=== PATIENT | female | born 1930 | race Hispanic/Latino ===

== ENCOUNTER 2017-03-16 07:36 | Inpatient (IN) | payer MEDICARE ==
[2017-03-16 08:11] LABS: ADD MANUAL DIFF? NO
[2017-03-16 08:23] LABS: BASO # 0.05 K/mm3 (0.0-2.0); BASO % 0.7 % (0.0-3.0); EOS # 0.2 (0.0-0.7); EOS % 2.5 % (1.5-5.0); GRAN # 5.23 (1.4-6.5); GRAN % 76.9 % (50.0-68.0); HEMATOCRIT 37.4 % (36.0-48.0); LYMPH # 0.8 (1.2-3.4); LYMPH % 11.8 % (22.0-35.0); MEAN CELL VOLUME 83.3 fL (80.0-105.0); MEAN CORPUSCULAR HEMOGLOBIN 26.7 pg (25.0-35.0); MEAN CORPUSCULAR HGB CONC 32.1 g/dl (31.0-37.0); MEAN PLATELET VOLUME 10.4 fl (7.0-11.0); MONO # 0.6 (0.1-0.6); MONO % 8.1 % (1.0-6.0); PLATELET COUNT 192 10^3/uL (120.0-450.0); WHITE BLOOD COUNT 6.8 10^3/ul (4.5-11.0)
[2017-03-16 08:27] LABS: INR 0.98 (0.93-1.08); PARTIAL THROMBOPLASTIN TIME 23.8 Seconds (23.7-30.8)
[2017-03-16 08:28] LABS: ALB/GLOB RATIO 1.2 (1.1-1.8); ALKALINE PHOSPHATASE 91 U/L (38-133); ALT/SGPT 41 U/L (7-56); AST/SGOT 29 U/L (15-39); BILIRUBIN,TOTAL 0.4 mg/dL (0.2-1.3); BLOOD UREA NITROGEN 16 mg/dL (7-21); CARBON DIOXIDE 24 mmol/L (21-33); CHLORIDE 107 mmol/L (98-107); GFR AFRICAN-AMERICAN > 60; GLUCOSE,RANDOM 213 mg/dL (70-110); LIPASE 156 U/L (23-300); POTASSIUM 4.3 mmol/L (3.6-5.0); SODIUM 138 mmol/L (132-148)
[2017-03-16 08:39] LABS: TROPONIN I 0.03 ng/mL
--- NOTE | 2017-03-16 09:06 | ED PDOC ---
Arrival/HPI - General Chief Complaint: Abdominal Pain Time Seen by Provider: 03/16/17 07:38 Historian: Patient - History of Present Illness Narrative History of Present Illness (Text): 03/16/17 07:40 A 86 year old female with a history that includes hypothyroidism is sent in to the emergency department by PMD for intermittent left shoulder pain, which has worsened within the past few days. She also complains of abdominal pain with associated diarrhea. She describes 4 episodes of non-bloody diarrhea last night with nausea. Patient denies any vomiting or any other symptoms at this time. PMD: Dr. Rivera Time/Duration: Other Symptom Onset: Gradual Symptom Course: Worsening Activities at Onset: Other (Walking ) Context: Home Past Medical History - Provider Review Nursing Documentation Reviewed: Yes - Infectious Disease Hx of Infectious Diseases: None - Endocrine/Metabolic Other/Comment: Diabetes with no medication - Psychiatric Hx Substance Use: No - Surgical History Hx Hysterectomy: Yes Hx Thyroidectomy: Yes Family/Social History - Physician Review Nursing Documentation Reviewed: Yes Family/Social History: Unknown Family HX Smoking Status: Never Smoked Hx Alcohol Use: No Hx Substance Use: No Allergies/Home Meds Allergies/Adverse Reactions: Allergies pcn Allergy (Uncoded 03/16/17 07:51) ITCHING Home Medications: Home Meds Medication Instructions Recorded Confirmed Simvastatin [Zocor] 20 mg PO DAILY 03/16/17 03/16/17 Review of Systems - Physician Review All systems were reviewed & negative as marked: Yes - Review of Systems Constitutional: Normal Respiratory: absent: SOB, Cough Gastrointestinal: Abdominal Pain, Diarrhea (non-bloody), Nausea. absent: Vomiting Physical Exam Vital Signs Reviewed: Yes Vital Signs Temp Pulse Resp BP Pulse Ox 03/16/17 10:54 85 16 130/74 88 L 03/16/17 09:40 80 16 124/72 98 03/16/17 08:01 97.8 F 75 16 138/88 94 L 03/16/17 07:41 97.8 F 77 18 138/88 98 Temperature: Afebrile Blood Pressure: Normal Pulse: Regular Respiratory Rate: Normal Appearance: Positive for: Well-Appearing, Non-Toxic, Comfortable Pain Distress: None Mental Status: Positive for: Alert and Oriented X 3 Finger Stick Blood Glucose: 241 - Systems Exam Head: Present: Atraumatic, Normocephalic Pupils: Present: PERRL Extroacular Muscles: Present: EOMI Conjunctiva: Present: Normal Mouth: Present: Moist Mucous Membranes Neck: Present: Normal Range of Motion Respiratory/Chest: Present: Clear to Auscultation, Good Air Exchange. No: Respiratory Distress, Accessory Muscle Use Cardiovascular: Present: Regular Rate and Rhythm, Normal S1, S2. No: Murmurs Abdomen: Present: Tenderness (mild non focal ) Upper Extremity: Present: Tenderness (left shoulder) Lower Extremity: Present: Normal Inspection. No: Edema Neurological: Present: GCS=15, CN II-XII Intact, Speech Normal Skin: Present: Warm, Dry, Normal Color. No: Rashes Psychiatric: Present: Alert, Oriented x 3, Normal Insight, Normal Concentration Medical Decision Making ED Course and Treatment: Impression: a 86 year old female complains of left shoulder pain and abdominal pain with non-bloody diarrhea. Differential Diagnosis included but are not limited to: Plan: -- Chest X-ray, EKG -- X-ray Left Shoulder -- Labs -- Toradol, Nitrostat, and Zofran -- Reassess and disposition Progress Notes: EKG: Ordered, reviewed, and independently interpreted the EKG. Rate : 75 BPM Rhythm : NSR Interpretation : Right Bundle Branch Block, which is old from 03/15/16 Chest X-ray Concrete Grinder Operator: Cherri Pompa MD IMPRESSION: No active pulmonary disease. COPD Left Shoulder X-Ray Concrete Grinder Operator : Cherri Ceballos MD IMPRESSION: No acute fracture or dislocation. CT Angiography Chest, Abdomen and Pelvis with and without intravenous contrast Concrete Grinder Operator : Brennen Conroy MD IMPRESSION: No evidence of aortic aneurysm or dissection 03/16/17 10:[address] Ruiz at bedside 03/16/17 10:[address] Rivera to observation for chest pain. - Lab Interpretations Lab Results: 03/16/17 08:00 03/16/17 08:00 Lab Results 03/16/17 08:00: Sodium 138, Potassium 4.3, Chloride 107, Carbon Dioxide 24, Anion Gap 11, BUN 16, Creatinine 0.7, Est GFR ( Amer) > 60, Est GFR (Non- Af Amer) > 60, Random Glucose 213 H, Calcium 9.0, Total Bilirubin 0.4, AST 29, ALT 41, Alkaline Phosphatase 91, Lactate Dehydrogenase 403, Total Creatine Kinase 71, Troponin I 0.03, Total Protein 6.0, Albumin 3.3, Globulin 2.7, Albumin/Globulin Ratio 1.2, Lipase 156 03/16/17 08:00: PT 10.6, INR 0.98, APTT 23.8 03/16/17 08:00: WBC 6.8 D, RBC 4.49, Hgb 12.0, Hct 37.4, MCV 83.3, MCH 26.7, MCHC 32.1, RDW 15.0 H, Plt Count 192, MPV 10.4, Gran % 76.9 H, Lymph % (Auto) 11.8 L, [place] % (Auto) 8.1 H, Eos % (Auto) 2.5, Baso % (Auto) 0.7, Gran # 5.23, Lymph # 0.8 L, [place] # 0.6, Eos # 0.2, Baso # 0.05 03/16/17 07:55: POC Glucose (mg/dL) 241 H - RAD Interpretation Radiology Orders: 03/16/17 07:44 CHEST ONE VIEW [RAD] Stat 03/16/17 07:45 SHOULDER LEFT [RAD] Stat 03/16/17 08:37 ANGIOGRAPHY DISECTION PROTOCOL [CT] Stat - EKG Interpretation Interpreted by ED Physician: Yes Type: 12 lead EKG - Medication Orders Current Medication Orders: Discontinued Medications Iohexol (Omnipaque 350 150 Ml) Confirm Administered Dose 150 ml .ROUTE .STK-MED ONE Stop: 03/16/17 08:44 Ketorolac Tromethamine (Toradol) 30 mg IVP STAT STA Stop: 03/16/17 07:45 Last Admin: 03/16/17 08:10 Dose: 30 mg Nitroglycerin (Nitrostat Sl Tab) 0.4 mg SL STAT STA Stop: 03/16/17 08:47 Last Admin: 03/16/17 09:39 Dose: Not Given Non-Admin Reason: Agitation Ondansetron HCl (Zofran Inj) 4 mg IVP STAT STA Stop: 03/16/17 07:45 Last Admin: 03/16/17 08:11 Dose: 4 mg - Scribe Statement The provider has reviewed the documentation as recorded by the [employer] training under [place] Shonna Provider Scribe Attestation: All medical record entries made by the Scribe were at my direction and personally dictated by me. I have reviewed the chart and agree that the record accurately reflects my personal performance of the history, physical exam, medical decision making, and the department course for this patient. I have also personally directed, reviewed, and agree with the discharge instructions and disposition. Disposition/Present on Arrival - Present on Arrival Any Indicators Present on Arrival: No History of DVT/PE: No History of Uncontrolled Diabetes: No Urinary Catheter: No History of Decub. Ulcer: No History Surgical Site Infection Following: None - Disposition Have Diagnosis and Disposition been Completed?: Yes Diagnosis: Chest pain, Shoulder pain, Diarrhea Disposition: HOSPITALIZED Disposition Time: 11:00 Condition: FAIR
--- NOTE | 2017-03-16 09:37 | RAD ---
PROCEDURE: CHEST RADIOGRAPH, 1 VIEW HISTORY: Abdominal pain COMPARISON: None available. FINDINGS: LUNGS: The lungs are hyperinflated and there is peribronchial thickening with chronic changes in both lungs. PLEURA: No pneumothorax or pleural fluid seen. CARDIOVASCULAR: The heart is normal in size. Atherosclerotic aortic arch calcifications are present. OSSEOUS STRUCTURES: No significant abnormalities. VISUALIZED UPPER ABDOMEN: Normal. OTHER FINDINGS: None. IMPRESSION: No active pulmonary disease. COPD.
--- NOTE | 2017-03-16 10:14 | RAD ---
PROCEDURE: Radiographs of the Left Shoulder HISTORY: Shoulder pain COMPARISON: No prior. FINDINGS: BONES: No acute displaced fracture or dislocation. There is diffuse bone demineralization. JOINTS: There is mild degenerative osteoarthrosis in the acromioclavicular and glenohumeral joints. SOFT TISSUES: Normal. OTHER FINDINGS: None. IMPRESSION: No acute fracture or dislocation.
--- NOTE | 2017-03-16 10:17 | CT ---
PROCEDURE: CT Angiography Chest, Abdomen and Pelvis with and without intravenous contrast HISTORY: cp radiating to back COMPARISON: None. TECHNIQUE: Contiguous axial images of the chest, abdomen and pelvis were obtained in the phase of aortic enhancement. A noncontrast enhanced CT of the chest was also obtained to evaluate for possible intramural thrombus. Coronal and sagittal reformats were generated. Radiation dose: Total exam DLP = mGy-cm. This CT exam was performed using one or more of the following dose reduction techniques: Automated exposure control, adjustment of the mA and/or kV according to patient size, and/or use of iterative reconstruction technique. Intravenous contrast dose: 100 cc of Omnipaque 300 FINDINGS: CT ANGIOGRAPHY OF THE CHEST WITH & WITHOUT CONTRAST: ABDOMINAL AORTA:: No aneurysm or dissection. AORTA (CHEST AND ABDOMEN): The thoracic and abdominal aorta are unremarkable, without aneurysm, dissection or rupture. No intramural thrombus identified in the thoracic aorta on the non-contrast ct of the chest. The celiac axis, superior mesenteric artery, inferior mesenteric artery and the renal arteries are widely patent. The pelvic arteries are unremarkable. LUNGS: Mild peripheral interstitial changes. MEDIASTINUM: Unremarkable. Normal caliber aorta and pulmonary arterial trunk. No aortic dissection. Normal size heart. LYMPH NODES: Unremarkable. PLEURA: Minimal bilateral pleural effusions. No pneumothorax. No pleural fluid. BONES: Unremarkable. OTHER FINDINGS: None. 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 No gross lesion or ductal dilatation. GALLBLADDER AND BILE DUCTS: Unremarkable. PANCREAS: Unremarkable. No gross lesion or ductal dilatation. SPLEEN: Unremarkable. ADRENALS: Unremarkable. No mass. KIDNEYS AND URETERS: Multiple left renal cysts.. No hydronephrosis. No solid mass. VASCULATURE: Unremarkable. No aortic aneurysm. STOMACH AND BOWEL: Unremarkable. No obstruction. No gross mural thickening. APPENDIX: Normal appendix. PERITONEUM: Unremarkable. No free fluid. No free air. LYMPH NODES: Unremarkable. No enlarged lymph nodes. BLADDER: Unremarkable. REPRODUCTIVE: Hysterectomy. BONES: No acute fracture. OTHER FINDINGS: None. IMPRESSION: No evidence of aortic aneurysm or dissection
--- NOTE | 2017-03-16 11:25 | CON ---
DATE: 03/16/2017 REASON FOR CONSULTATION: Abnormal CAT scan. REFERRING PHYSICIAN: Dr. Rivera. HISTORY OF PRESENT ILLNESS: The patient is an 86-year-old female with past medical history significant for thyroid disease, hyperlipidemia, chronic sinus problems, who presents to [facility] with main complaints of nausea and diarrhea for the past day. The patient also complains of abdominal pain for the past day. The patient denies vomiting. She denies fevers, chills or infectious exposure. The patient denies shortness of breath at rest or dyspnea on exertion. She does state to a chronic minimal occasional cough -- most likely from her chronic sinus problems. There is no history of significant sputum production. There is no history of chest pain, coughing up of blood or chest pain -- made worse with deep respirations. There is no history of temperatures, chills or infectious exposure. There is no history of night sweats, weight loss or appetite change prior to the above events. No history of leg or calf pains. No history of syncope or diaphoresis. No history of recent travel or trauma. REVIEW OF SYSTEMS: The patient does complain of intermittent left shoulder pain - for over 1 year. No acute urinary symptoms. No new neurologic complaints. Rest of review of systems is negative. ALLERGIES: No known allergies. SOCIAL HISTORY: Negative for tobacco, negative for alcohol. FAMILY HISTORY: No inheritable diseases. HOME MEDICATIONS: Include Zocor. PHYSICAL EXAMINATION: GENERAL: The patient appears comfortable at rest. She is not short of breath. VITAL SIGNS: Temperature is 97.8, pulse 80, respirations 16, blood pressure 124 /72. Oxygen saturation on room air is 98%. HEENT: Normocephalic, atraumatic. NECK: No JVD. CARDIOVASCULAR: Systolic ejection murmur at the lower left sternal border. No S3 gallop. LUNGS: Clear bilaterally. EXTREMITIES: No clubbing, cyanosis, or edema. Calves are nontender to palpation. GASTROINTESTINAL: Abdomen is soft. The abdomen is mildly tender to palpation. Bowel sounds are positive. SKIN: No acute rash. NEUROLOGIC: Limited at the present time. PERTINENT LABORATORY DATA: CAT scan of the chest was done as an angiogram protocol. There are very minimal peripheral interstitial changes noted. These appear chronic in nature. There are also very small bilateral pleural effusions. There is no acute consolidation, mass, or nodules seen. There is no lymphadenopathy. There is no aortic dissection. Complete metabolic profile : Glucose 213. Rest of the metabolic profile is within normal limits. CBC: White count 6.8, hemoglobin 12.0, hematocrit 37.4, platelets of 192. IMPRESSION: 1. Probable gastroenteritis. 2. Thyroid disease. 3. Chronic sinusitis. 4. Tiny pleural effusions. PLAN: The patient presents to [facility] with main complaints of nausea, diarrhea, and abdominal pain for 1 day. As above, the patient also complains of some left shoulder pain -- which has been present for over a year. Lastly, the patient does complain of an occasional chronic cough -- most likely from her chronic sinus problems. I did offer the patient nasal steroids this morning -- she refused. On physical exam, her lungs are clear. Oxygen saturation on room air is 98%. I did review the CAT scan of the chest--as above. There are minimal chronic-appearing changes noted. There is no acute consolidation, pulmonary mass, or nodule noted. There is no lymphadenopathy. Gastroenterology and cardiology evaluations are ordered. Additional pulmonary intervention will be based on the clinical status of the patient. I did discuss the above with Dr. Rivera at length. Thank you very much for this pulmonary consultation. Peng Kohli MD cc: [id number] TT: 03/16/2017 11:25:04 Confirmation # [id number] Dictation # [id number] sid [email or web address]
[2017-03-16 12:13] LABS: URINE BILIRUBIN NEGATIVE (NEGATIVE); URINE BLOOD MODERATE (NEGATIVE); URINE GLUCOSE (UA) 250 mg/dL (NEGATIVE); URINE KETONE 15 mg/dL (NEGATIVE); URINE LEUKOCYTE ESTERASE NEGATIVE Leu/uL (NEGATIVE); URINE PROTEIN TRACE mg/dL (<30 mg/dL); URINE UROBILINOGEN 0.2 E.U./dL (<1 E.U./dL)
[2017-03-16 12:15] LABS: URINE APPEARANCE SL CLOUDY (CLEAR); URINE COLOR YELLOW (YELLOW)
[2017-03-16 12:19] LABS: URINE WBC 0 - 2 /hpf (0-6)
[2017-03-16 12:20] LABS: URINE BACTERIA FEW (NEG)
--- NOTE | 2017-03-16 13:50 | CON ---
DATE: 03/16/2017 REQUESTING PHYSICIAN: Dr. Rivera. REASON FOR CONSULTATION: Chest and shoulder pain. HISTORY OF PRESENT ILLNESS: This is an 86-year-old woman with a history of diabetes who began feeling poorly yesterday. She has some abdominal discomfort. She developed diarrhea. She also became extremely nauseated but did not vomit. She was brought to the Emergency Room. She was complaining of upper back pain and shoulder discomfort which she describes as a sharp pain. Her pain persists at this time. Electrocardiogram was performed showing a chronic right bundle branch block pattern. No acute ST-T changes were seen. She denies any prior cardiac history. She does have a history of diabetes for the past 10-15 years but currently takes no medications. She is not hypertensive. She does have mild hyperlipidemia. She does not smoke. There is no family history of premature heart disease. PAST MEDICAL HISTORY: Notable for prior subtotal thyroidectomy as well as a hysterectomy. MEDICATIONS: Her only medications at home are simvastatin 20 mg daily. SOCIAL HISTORY: She does not smoke or drink. She is and lives with her . FAMILY HISTORY: Both parents are from age-related illness. ALLERGIES: REACTION TO PENICILLIN. REVIEW OF SYSTEMS: Ten point review of systems is notable mainly for the problems mentioned above as well as some joint pain. PHYSICAL EXAMINATION: GENERAL: She is a very elderly woman who appears somewhat uncomfortable because of her shoulder pain. She also complains of some persistent nausea. VITAL SIGNS: Her blood pressure is 130/74 with a pulse of 86 and sinus, respirations are 16. She is afebrile. HEENT: Normocephalic, atraumatic. NECK: Supple, no JVD noted. CHEST: Clear to auscultation and percussion. HEART: PMI displaced laterally with increased splitting of second sound. There is a systolic murmur in the left sternal border. ABDOMEN: Soft with normoactive bowel sounds. Bilateral lower quadrant tenderness present. EXTREMITIES: No clubbing, cyanosis or edema. SKIN: Warm and dry. PSYCHIATRIC: Normal mood and affect. NEUROLOGIC: Alert and oriented x 3. No gross motor or sensory deficits appreciable. DIAGNOSTIC DATA: Electrocardiogram reveals sinus rhythm with a right bundle branch block; no acute changes seen. Chest x-ray reveals normal cardiac silhouette with clear lung case. CT of the chest and abdomen shows no evidence of pulmonary embolus. No other significant abnormalities are seen. Shoulder x-ray is unremarkable except for mild osteoarthritis changes. White count 6.8, hemoglobin and hematocrit are 12.0 and 37.4 with a platelet count 192 ,000. PT, PTT normal. Potassium 4.3, BUN and creatinine are 16 and 0.7, glucose 213. Troponin 0.03 with a CK of 71. IMPRESSION: 1. Back and shoulder discomfort, doubt cardiac cause. Symptoms appear more likely due to referred abdominal pain or musculoskeletal cause. 2. Nausea, diarrhea. Workup in progress. 3. History of diabetes and hyperlipidemia. RECOMMENDATIONS: Serial enzymes will be obtained. A repeat electrocardiogram will be planned for the morning. An echocardiogram will be ordered as well. We will continue to follow along and make further recommendations as appropriate. Thank you for this consultation. Perez Casillas MD cc: [id number] TT: 03/16/2017 11:44:27 Confirmation # [id number] Dictation # [id number] aracely SALDIVAR
[2017-03-16 14:41] LABS: T3 UPTAKE 35.6 % (23.0-41.0); T4 10.8 ug/dL (5.5-11.0)
[2017-03-16 14:55] LABS: THYROID STIMULATING HORMONE 2.61 mIU/mL (0.46-4.68)
--- NOTE | 2017-03-16 15:11 | HP ---
This is an 86-year-old female, who this morning I was called to their home when the patient reported that she was having chest pain. She was sitting in a chair with dry heaves. She states that during the night, she was having loose diarrhea. She says that the pain was along the anterior left chest a edgar, left shoulder, under the left scapula into the neck area. She states that she has had this pain off and on at times and that she would also get this discomfort when she would walk for a while. Sh e denies any fever or chills. PAST MEDICAL HISTORY: Colitis, thyroid cancer, hypothyroid disease, non-insulin dependent diabetes, hyperlipidemia. SOCIAL HISTORY: She is a nonsmoker, nondrinker, nondrug user. ALLERGY HISTORY: PENICILLIN. HOME MEDICATIONS: As documented are simvastatin, Zocor. She is also on thyroid replacement therapy, but does not know the dosage. REVIEW OF SYSTEMS: Fourteen systems are reviewed. Pertinent findings are an 86-year-old female, as per the HPI, but looks frail and fatigued. PHYSICAL EXAMINATION: VITAL SIGNS: Temp is 97.8, the pulse is 77, blood pressure is 138/88, the respiratory rate is 18, th e oxygen saturation is 98% on room air. GENERAL: She is alert and oriented x 3. NECK: Supple. There is no JVD. HEART: Has an S1, S2 rhythm with a grade II/ systolic murmur. ABDOMEN: Soft with positive bowel sounds. LUNGS: Show diminished breath sounds at the bases. EXTREMITIES: Show no evidence of edema. LABORATORY DATA: WBC is 6.8, RBC 4.49, hemoglobin 12, hematocrit 37.4, platelet count 192. PT is 10 .6 with an INR of 0.98, PTT is 23.8. Chemistry shows blood sugar of 213. Electrolytes are normal. The BUN is 16, creatinine is 0.7. LFTs are normal. Her troponin is 0.03. X-ray of her shoulder showed no acute fracture. Chest x-ray is reported as showing no active pulmona ry disease, evidence of COPD. She had a CT angiogram, which showed hemangioma of the liver and some renal cysts. Her EKG is reported as showing a sinus rhythm with PVCs, right bundle branch block, lef t anterior fascicular block, T-wave abnormality. IMPRESSION: An 86-year-old female with: 1. Left anterior chest pain and shoulder and back pain. States that the pain at times is related to walking, described sometimes as a heaviness in the chest. a. Must rule out cardiac ischemic disease. b. Rule out pulmonary etiology. c. Rule out gastrointestinal etiology. 2. Episodic diarrhea. a. Must rule out exacerbation of colitis. b. Rule out underlying other pathology. c. Rule out viral etiology. 3. History of hypothyroid disease. Check her thyroid function. The patient will be seen by GI, pulmonary, and cardiology. Serial cardiac enzymes will be requested. The patient will be placed on PPI. An echocardiogram will be requested as well. Patricia Rivera MD cc: [id number] TT: 03/16/2017 15:11:05 en
[2017-03-16 15:20] VITALS: BMI 26.0
[2017-03-16 15:20] LABS: TROPONIN I 6.67 ng/mL
[2017-03-16] MEDS ORDERED: Pneumococcal 23-Valent Vaccine IM ONE (15:21)
--- NOTE | 2017-03-16 15:24 | CARD ---
APPROVED REPORT EKG Measurement Heart [id number] <Conclusion> Sinus rhythm with frequent premature Atrial complexes Right bundle branch block Left anterior fascicular block Bifascicular block T wave abnormality, consider lateral ischemia Abnormal ECG
--- NOTE | 2017-03-16 17:51 | CON ---
DATE: 03/16/2017 HISTORY OF PRESENT ILLNESS: The patient seen and examined at the bedside. This is an 86-year-old lady with history of hyperthyroidism, hyperlipidemia and diabetes managed with diet and some exercise, who presented with a 1-day history of nausea, vomiting and diarrhea of sudden onset with some shoulder pain and back pain. CAT scan of the abdomen with dissection protocol was done which was negative; however, second set of troponin here at [facility] revealed a highly elevated troponin at 6.6 to 7. The EKG did not show any specific ischemic changes; however, provisional diagnosis of NSTEMI with ongoing chest pain was made, ICU was consulted. No fever, no chills, no sweats, no constipation, no shortness of breath. Of note, the nausea was getting progressively worse over the period of 1 day. There were no aggravating or alleviating factors. The pain was also incremental. PAST MEDICAL HISTORY: Diabetes, hypercholesterolemia and hypothyroidism. ALLERGIES: PENICILLIN. SOCIAL HISTORY: The patient is an ex-smoker. She quit about 50 years ago; however, used to smoke 6-7 prior to quitting. No alcohol or illicit drug abuse. FAMILY HISTORY: Noncontributory. MEDICATIONS AT HOME: Zocor, Synthroid. REVIEW OF SYSTEMS: Revealed 12 organ system other than mentioned in history of present illness is negative. PHYSICAL EXAMINATION: VITAL SIGNS: Blood pressure 135/81, heart rate 92, respiratory rate 16, oxygen saturation 98% on room air, temperature 97.8. HEAD AND NECK: Atraumatic. LUNGS: A few wheezes bilaterally. HEART: Regular rate and rhythm. S1, S2 normal. ABDOMEN: Soft, nontender, nondistended. MUSCULOSKELETAL: No C/C/E. NEUROLOGIC: The patient moves all extremities spontaneously. SKIN: Moist. PSYCHIATRIC: The patient is alert and oriented x 3. LABORATORY DATA: WBC 6.8, hemoglobin 12, platelet count 192. Sodium 138, potassium 4.3, chloride 107, carbon dioxide 24, BUN 16, creatinine 0.7, glucose 213, AST 29, ALT 41. Troponin first set is 0.03 and the second set is 6.67. TSH 2.61 (normal), thyroxine 10.8 (normal), T3 uptake 35.6 (normal). Lipase normal. CAT scan angiography official report showed no evidence of aortic aneurysm or dissection. Chest x-ray showed severe emphysematous changes bilaterally, right more than left, some increased interstitial markings which appear to be rather reflective of chronic fibrosis. The CT chest part of the CT angio showed some bronchiectatic changes, some ground glass mosaicism (airtrapping versus pulmonary hypertension). ASSESSMENT AND PLAN: This is an 86-year-old lady with history of smoking, diabetes and hyperlipidemia who presented with atypical chest pain which nevertheless was going into left shoulder and back. The nausea and vomiting that the patient had most likely is reactive to myocardial changes related to non-ST elevated NV. The patient does have NSTEMI at the present time. I will proceed with dual antiplatelet therapy, statins and beta blockers. Reportedly, cardiology service saw the patient and did not find the need for therapeutic anticoagulation at present time. Timing of cardiac catheterization and PCI will be deferred to cardiology service. Would recommend to start nitroglycerin drip and admit patient to ICU for further management and monitoring. The patient likely has COPD and she is wheezing on physical exam. I will proceed with bronchodilators, inhaled corticosteroids and LAMA at the present time and reassess. private pulmonary service (Dr. Kohli) will also being following the patient. We will continue with DVT and GI prophylaxis. ccm time 40 min Rolando Estrella MD cc: [id number] TT: 03/16/2017 17:51:26 Confirmation # [id number] Dictation # [id number] aracely SALDIVAR
[2017-03-16] MEDS: Budesonide 0.5 mg/2 ml Inhal Susp UD IH SCH (18:20)
[2017-03-16] MEDS ORDERED: Nitroglycerin 50mg in D5W 50 MG/250 ML BOTTLE IV PRN (18:22)
[2017-03-16] MEDS ORDERED: Sodium Chloride 0.45% 1,000 ML IV SCH (18:30)
--- NOTE | 2017-03-16 19:33 | CP.PCM.PCO ---
Assessment and Plan - Assessment and Plan (Free Text) Assessment: On Sign out rounds at 7pm patient noted to be saturating in the mid 70's on nasal cannula with a good wave form. Will place the patient on Bipap overnight with the goal to keep sa02 greater than 92%. Also spoke with Dr. Casillas regarding patient's management of NSTEMI. Recommends continuing dual anti- platelet therapy and holding off on therapeutic anticoagulation at this time.
[2017-03-16] MEDS: Arformoterol 15 mcg/2 ml Inh Sol IH SCH (20:22)
[2017-03-16 20:38] LABS: ARTERIAL BLOOD GAS HCO3 20.9 mmol/L (21-28); ARTERIAL BLOOD GAS O2 CAPACITY 15.9 mL/dl (16-24); ARTERIAL BLOOD GAS O2 CONTENT 15.1 ML/dl (15-23); ARTERIAL BLOOD GAS PH 7.41 (7.35-7.45); ARTERIAL BLOOD HGB O2 SAT 92.4 % (95.0-98.0); CARBOXYHEMOGLOBIN 1.2 % (0.5-1.5); HHB 5.1 % (0-5); METHEMOGLOBIN 1.2 % (0.0-3.0)
[2017-03-16 21:05] LABS: TROPONIN I 47.5 ng/mL
--- NOTE | 2017-03-16 21:22 | CON ---
DATE: 03/16/2017 This patient was seen and evaluated earlier in the Emergency Room. Discussed with Dr. Rivera and dragan tran the ER physician. This 86-year-old patient with a past medical history of hypothyroidism, dyslipid emia, diabetes mellitus, presented with a history of nausea, vomiting and also left shoulder pain and back pain. Initially, the CT of the abdomen was negative. In view of the history of an episode of diarrhea and vomiting, GI consult was requested. Subsequently, the blood tests showed an increased t roponin level. The patient is now admitted to the ICU unit. No complaints of any abdominal pain as such. No further diarrhea. No dysuria. No fever. OTHER PAST MEDICAL HISTORY: As above, hypothyroidism, dyslipidemia. ALLERGIES: PENICILLIN. SOCIAL HISTORY: She is an ex-smoker, has quit about 50 years ago. No alcohol. FAMILY HISTORY: Noncontributory. REVIEW OF SYSTEMS: Positive as above. Other systems reviewed. PHYSICAL EXAMINATION: GENERAL: The patient is lying on the bed, not in acute distress. VITAL SIGNS: Temperature is 99.3, pulse is 78, blood pressure 107/70. HEENT: Atraumatic, anicteric. NECK: Supple. HEART: S1, S2 heard. LUNGS: Bilateral air entry present. ABDOMEN: Soft. No masses, no tenderness. EXTREMITIES: No cyanosis or clubbing. NEUROLOGIC: Alert, oriented. Moves all of the extremities. LABORATORY DATA: Hemoglobin , hematocrit 37.4, WBC 6.8, platelets 192. Chemistry showed LFTs normal. Troponin has elevated; it was initially 0.03, now is 6.67. IMPRESSION: This 86-year-old patient now admitted with: 1. Acute myocardial infarction, non-ST. 2. History of nausea and vomiting subsided. 3. Other comorbidities include dyslipidemia and hypothyroidism. PLAN: Symptomatic management since the patient does not have any episodes of diarrhea and vomiting, only one episode. We will continue to follow. The patient is being evaluated and followed by cardio logist for this acute VT, non-ST segment. We will continue to closely follow up her care and suggest further management based on the clinical course. Susan Massey MD cc: [id number] TT: 03/16/2017 21:21:29 Confirmation # [id number] Dictation # [id number] mn
[2017-03-17] MEDS ORDERED: Insulin Lispro (humaLOG) LOW Coverage SC SCH (06:00)
[2017-03-17] MEDS: Pantoprazole 40 mg EC Tab PO SCH (06:25)
[2017-03-17 06:56] LABS: HEMATOCRIT 38.2 % (36.0-48.0); MEAN CELL VOLUME 82.5 fL (80.0-105.0); MEAN CORPUSCULAR HEMOGLOBIN 26.8 pg (25.0-35.0); MEAN CORPUSCULAR HGB CONC 32.5 g/dl (31.0-37.0); MEAN PLATELET VOLUME 10.8 fl (7.0-11.0); PLATELET COUNT 277 10^3/uL (120.0-450.0); RED CELL DISTRIBUTION WIDTH 15.5 % (11.5-14.5); WHITE BLOOD COUNT 11.8 10^3/ul (4.5-11.0)
[2017-03-17 07:00] LABS: ADD MANUAL DIFF? YES
[2017-03-17 07:14] LABS: ALB/GLOB RATIO 1.1 (1.1-1.8); ALKALINE PHOSPHATASE 95 U/L (38-133); ALT/SGPT 72 U/L (7-56); AST/SGOT 328 U/L (15-39); BILIRUBIN,TOTAL 1.1 mg/dL (0.2-1.3); BLOOD UREA NITROGEN 20 mg/dL (7-21); CALCIUM 9.1 mg/dL (8.4-10.5); CARBON DIOXIDE 26 mmol/L (21-33); CHLORIDE 104 mmol/L (98-107); GFR AFRICAN-AMERICAN > 60; GLUCOSE,RANDOM 262 mg/dL (70-110); LIPASE 65 U/L (23-300); MAGNESIUM 1.9 mg/dL (1.7-2.2); PHOSPHOROUS 3.5 mg/dL (2.5-4.5); POTASSIUM 4.8 mmol/L (3.6-5.0); SODIUM 136 mmol/L (132-148)
[2017-03-17] MEDS: Budesonide 0.5 mg/2 ml Inhal Susp UD IH SCH ×2 (07:43→17:54)
[2017-03-17] MEDS ORDERED: Magnesium Sulfate 1 gm in D5W 1 GM/100 ML BAG IVPB ONE (07:43)
[2017-03-17] MEDS: Arformoterol 15 mcg/2 ml Inh Sol IH SCH ×2 (07:43→19:56)
--- NOTE | 2017-03-17 08:13 | CP.PCM.PN ---
Subjective - Date & Time of Evaluation Date of Evaluation: 03/17/17 Time of Evaluation: 07:00 - Subjective Subjective: Stable in CCU. Mild nausea this AM. No chest, abd. or shoulder pain. I spoke with Dr. Casillas and Dr. Rivera this AM. V/S noted. RSR/S. Tachy. PE: Lungs: clear Cor.: S1S2 Abd.: soft Ext.: noedema Neuro.: alert I/O 426/375 Labs noted. Trop 71 today ECG's c/w ALMI with chronic RBBB CXR noted. No CHF CTA noted: No aortic dissection Objective - Vital Signs/Intake and Output Vital Signs (last 24 hours): Temp Pulse Resp BP Pulse Ox 99.3 F 93 H 17 124/79 93 L 03/16/17 18:00 03/17/17 07:00 03/17/17 07:00 03/17/17 07:00 03/17/17 07:00 Intake and Output: 03/17/17 03/17/17 06:59 18:59 Intake Total 236 Output Total 200 Balance 36 - Medications Medications: Current Medications Arformoterol Tartrate (Brovana) 15 mcg IH [id number] [facility] Last Admin: 03/17/17 07:43 Dose: 15 mcg Aspirin (Ecotrin) 81 mg PO DAILY [facility] Atorvastatin Calcium (Lipitor) 80 mg PO DIN [facility] Last Admin: 03/16/17 18:19 Dose: 80 mg Budesonide (Pulmicort Respules) 0.5 mg IH Q12H [facility] Last Admin: 03/17/17 07:43 Dose: 0.5 mg Clopidogrel Bisulfate (Plavix) 75 mg PO DAILY [facility] Nitroglycerin/Dextrose (Nitroglycerin 50 Mg/250 Ml D5w) 50 mg in 250 mls @ 0.9 mls/hr IV .Q24H PRN; Protocol; 3 MCG/MIN PRN Reason: Pain, moderate (4-7) Last Titration: 03/16/17 18:51 Dose: 10 mcg/min, 3 mls/hr Magnesium Sulfate/Dextrose (Magnesium Sulfate 1 Gm/100 Ml D5w) 1 gm in 100 mls @ 100 mls/hr IVPB ONCE ONE Stop: 03/17/17 08:42 Heparin Sodium/Dextrose (Heparin 25,000 Units/250ml In D5w) 250 mls @ 12.8 mls/ hr IV .[id number] PRN; Protocol; 16 UNITS/KG/HR PRN Reason: ADJUST RATE PER PROTOCOL Insulin Human Lispro (Humalog Low) 0 units SC Q6 LUCINA PRN Reason: Protocol Metoprolol Tartrate (Lopressor) 25 mg PO BRKDIN [facility] Last Admin: 03/16/17 18:19 Dose: 25 mg Ondansetron HCl (Zofran Inj) 4 mg IVP Q6H PRN PRN Reason: Nausea/Vomiting Last Admin: 03/16/17 23:03 Dose: 4 mg Pantoprazole Sodium (Protonix Ec Tab) 40 mg PO 0600 [facility] Last Admin: 03/17/17 06:25 Dose: 40 mg Tiotropium [place] (Spiriva) 18 mcg IH DAILY [facility] - Labs Labs: 03/17/17 05:45 03/17/17 05:45 PT 10.6 Seconds (9.9-11.8) 03/16/17 08:00 INR 0.98 (0.93-1.08) 03/16/17 08:00 APTT 23.8 Seconds (23.7-30.8) 03/16/17 08:00 Assessment and Plan - Assessment and Plan (Free Text) Assessment: Abdominal and shoulder pain with nausea and diarrhea Acute ALMI RBBB Diabetes Subtotal thyroidectomy S /P hysterectomy Plan: ASA, Plavix, IV heparin, metoprolol, IV NTG Plan cardiac cath Fri. AM Check echo and today's ECG Monitor I/O, labs, stool for OB, sats, etc. Additional recs following cath.
[2017-03-17 08:59] LABS: ANISOCYTOSIS SLIGHT; BAND 4 % (0-2); NEUTROPHIL 87 % (50.0-70.0); PLATELET ESTIMATE NORMAL (NORMAL)
--- NOTE | 2017-03-17 09:16 | PN ---
DATE: 03/17/2017 The patient was seen and examined in the intensive care unit. Currently, she is on 5 liters nasal ca nnula and receiving nebulizer treatments with added budesonide. She is not in respiratory distress. VITAL SIGNS: Her temperature is 99, pulse 93, respirations 18, pulse oximetry is 93% on 5 liters per minute nasal cannula, blood pressure is 124/79. LABORATORY DATA: Reviewed during today's evaluation. Her arterial blood gas shows pH of 7.41, pCO2 of 33 and pO2 of 66, with oxygen saturation of 94. Her electrolytes are normal. Her alkaline phosph atase is markedly elevated. LDH is markedly elevated and so is cardiac troponin markedly elevated to 71. The last troponin before that was 47.5. WBCs are 11.8 and hemoglobin of 12.4. PHYSICAL EXAMINATION: HEAD, EARS, NOSE AND THROAT: Within normal limits. NECK: Supple with no jugular vein distention. CHEST: Symmetrical. HEART: S1, S2. No S3. II/ systolic ejection murmur. LUNGS: Diminished breath sounds at both lung bases with scattered rhonchi and no wheezing. GASTROINTESTINAL: Abdomen soft, nontender with no organomegaly. EXTREMITIES: 1+ pedal edema. SKIN: Clear with no skin rashes and no cyanosis. NEUROLOGIC: No focal deficits. ASSESSMENT: 1. Acute myocardial infarction. 2. Congestive heart failure. 3. Severe hypoxemia. 4. Normal levels of pCO2 and pH indicating no significant chronic pulmonary condition. PLAN: The patient was assessed in the intensive care unit and new chest x-ray shows some redistribut ion of blood flow with congestive changes right upper more than left upper lobe, doubt pneumonia, but this area should be re-x-rayed in 12-24 hours. Otherwise, patient should receive treatment for her congestive heart failure, being evaluated by cardiology for possible cardiac catheterization. Her ac luis myocardial infarction is quite significant with very high levels of troponin and prognosis is ext remely guarded. Doug Diaz MD cc: [id number] TT: 03/17/2017 09:16:28 Confirmation # [id number] Dictation # [id number] mn
[2017-03-17] MEDS: Heparin25000 units/250ml 1/2NS 25,000 UNITS/250 ML BAG IV PRN (09:17)
--- NOTE | 2017-03-17 09:44 | CP.CCUPN ---
<Giulia Davenport - Last Filed: 03/17/17 13:09> CCU Subjective - Physician Review Subjective (Free Text): 03/17/17 09:44 Less nsauseous. VSS. No CP, SOB, or other complaints. CCU Objective - Vital Signs / Intake & Output Vital Signs (Last 4 hours): Vital Signs Pulse Resp BP Pulse Ox 03/17/17 09:17 96 H 130/81 03/17/17 07:00 93 H 17 124/79 93 L 03/17/17 06:00 93 H 17 112/77 93 L Intake and Output (Last 8hrs): Intake & Output 03/16/17 03/17/17 03/17/17 22:59 06:59 14:59 Intake Total 190 236 Output Total 175 200 Balance 15 36 Weight 176 lb 5.917 oz Intake: IV 50 36 Right Forearm 36 Oral 140 200 Output: Urine 175 200 Urine, Voided 175 200 Stool 0 Other: Voiding Method Bedside Commode # Voids Urine, Voided 2 - Physical Exam Head: Positive for: Atraumatic, Normocephalic Pupils: Positive for: PERRL Extroacular Muscles: Positive for: EOMI Conjunctiva: Positive for: Normal Mouth: Positive for: Moist Mucous Membranes Neck: Positive for: Normal Range of Motion Respiratory/Chest: Positive for: Clear to Auscultation, Good Air Exchange. Negative for: Respiratory Distress, Accessory Muscle Use Cardiovascular: Positive for: Regular Rate and Rhythm, Normal S1, S2. Negative for: Murmurs Abdomen: Positive for: Tenderness (mild non focal ) Upper Extremity: Negative for: Tenderness Lower Extremity: Positive for: Normal Inspection. Negative for: Edema Neurological: Positive for: GCS=15, CN II-XII Intact, Speech Normal Skin: Positive for: Warm, Dry, Normal Color. Negative for: Rashes Psychiatric: Positive for: Alert, Oriented x 3, Normal Insight, Normal Concentration - Medications Active Medications: Active Medications Generic Name Dose Route Start Last Admin Trade Name Freq PRN Reason Stop Dose Admin Arformoterol Tartrate 15 mcg 03/16/17 20:00 03/17/17 07:43 Brovana IH 15 mcg [id number] LUCINA Administration Aspirin 81 mg 03/17/17 10:00 Ecotrin PO DAILY LUCINA Atorvastatin Calcium 80 mg 03/16/17 17:00 03/16/17 18:19 Lipitor PO 80 mg DIN LUCINA Administration Budesonide 0.5 mg 03/16/17 17:15 03/17/17 07:43 Pulmicort Respules IH 0.5 mg Q12H LUCINA Administration Clopidogrel Bisulfate 75 mg 03/17/17 10:00 Plavix PO DAILY [facility] Nitroglycerin/Dextrose 50 mg in 250 mls @ 0.9 mls/hr 03/16/17 18:22 03/16/17 18:51 Nitroglycerin 50 Mg/250 Ml D5w IV 10 mcg/min .Q24H PRN 3 mls/hr Pain, moderate (4-7) Titration Protocol 3 MCG/MIN Heparin Sodium/Sodium Chloride 25,000 units in 250 mls @ 12.8 mls/hr 03/17/17 07:59 03/17/17 09:17 Heparin 26251 Units/250ml 1/2 Normal Saline IV 16 units/kg/hr .[id number] PRN 12.8 mls/hr ADJUST RATE PER PROTOCOL Administration Protocol 16 UNITS/KG/HR Insulin Human Lispro 0 units 03/17/17 11:30 Humalog Low SC ACHS [facility] Protocol Metoprolol Tartrate 25 mg 03/16/17 17:00 03/17/17 09:17 Lopressor PO 25 mg BRKDIN LUCINA Administration Ondansetron HCl 4 mg 03/16/17 18:24 03/16/17 23:03 Zofran Inj IVP 4 mg Q6H PRN Administration Nausea/Vomiting Pantoprazole Sodium 40 mg 03/17/17 06:00 03/17/17 06:25 Protonix Ec Tab PO 40 mg 0600 [facility] Administration Tiotropium [place] 18 mcg 03/17/17 10:00 Spiriva IH DAILY [facility] - Patient Studies Lab Studies: Lab Studies 03/17/17 03/17/17 03/16/17 Range/Units 05:45 05:45 20:32 WBC 11.8 H D (4.5-11.0) 10^3/ul RBC 4.63 (3.5-6.1) 10^6/uL Hgb 12.4 (12.0-16.0) gm/dL Hct 38.2 (36.0-48.0) % MCV 82.5 (80.0-105.0) fL MCH 26.8 (25.0-35.0) pg MCHC 32.5 (31.0-37.0) g/dl RDW 15.5 H (11.5-14.5) % Plt Count 277 (120.0-450.0) 10^3/uL MPV 10.8 (7.0-11.0) fl Neutrophils % (Manual) 87 H (50.0-70.0) % Band Neutrophils % 4 H (0-2) % Lymphocytes % (Manual) 5 L (22.0-35.0) % Monocytes % (Manual) 4 (1.0-6.0) % Platelet Evaluation Normal (NORMAL) Anisocytosis (manual) Slight pCO2 33 L (35-45) mm/Hg pO2 66.0 L (80-100) mm/Hg HCO3 20.9 L (21-28) mmol/L ABG pH 7.41 (7.35-7.45) ABG Total CO2 21.9 L (22-28) mmol.L ABG O2 Saturation 94.8 L (95-98) % ABG O2 Content 15.1 (15-23) ML/dl ABG Base Excess -3.1 L (-2.0-3.0) mmol/L ABG Hemoglobin 11.6 L (11.7-17.4) g/dL ABG Carboxyhemoglobin 1.2 (0.5-1.5) % POC ABG HHb (Measured) 5.1 H (0-5) % ABG Methemoglobin 1.2 (0.0-3.0) % ABG O2 Capacity 15.9 L (16-24) mL/dl Hgb O2 Saturation 92.4 L (95.0-98.0) % FiO2 30.0 % Sodium 136 (132-148) mmol/L Potassium 4.8 (3.6-5.0) mmol/L Chloride 104 (98-107) mmol/L Carbon Dioxide 26 (21-33) mmol/L Anion Gap 11 (10-20) BUN 20 (7-21) mg/dL Creatinine 0.8 (0.5-1.4) mg/dL Est GFR ( Amer) > 60 Est GFR (Non-Af Amer) > 60 Random Glucose 262 H (70-110) mg/dL Calcium 9.1 (8.4-10.5) mg/dL Phosphorus 3.5 (2.5-4.5) mg/dL Magnesium 1.9 (1.7-2.2) mg/dL Total Bilirubin 1.1 (0.2-1.3) mg/dL AST 328 H (15-39) U/L ALT 72 H (7-56) U/L Alkaline Phosphatase 95 (38-133) U/L Lactate Dehydrogenase (333-699) U/L Total Creatine Kinase (35-230) U/L CK-MB (CK-2) (0.0-3.6) ng/mL CK-MB (CK-2) % (2.5-3.0) % Troponin I 71.60 H* D ng/mL Total Protein 6.0 (5.8-8.3) g/dL Albumin 3.2 (3.0-4.8) g/dL Globulin 2.8 gm/dL Albumin/Globulin Ratio 1.1 (1.1-1.8) Lipase 65 (23-300) U/L Thyroxine (T4) (5.5-11.0) ug/dL T3 Uptake (23.0-41.0) % TSH 3rd Generation (0.46-4.68) mIU/mL Urine Color (YELLOW) Urine Appearance (CLEAR) Urine pH (4.7-8.0) Ur Specific [place] (1.005-1.035) Urine Protein (<30 mg/dL) mg/dL Urine Glucose (UA) (NEGATIVE) mg/dL Urine Ketones (NEGATIVE) mg/dL Urine Blood (NEGATIVE) Urine Nitrate (NEGATIVE) Urine Bilirubin (NEGATIVE) Urine Urobilinogen (<1 E.U./dL) E.U./dL Ur Leukocyte Esterase (NEGATIVE) Michelle/uL Urine RBC (0-2) /hpf Urine WBC (0-6) /hpf Ur Epithelial Cells (0-5) /hpf Urine Bacteria (NEG) 03/16/17 03/16/17 03/16/17 Range/Units 20:05 14:25 14:11 WBC (4.5-11.0) 10^3/ul RBC (3.5-6.1) 10^6/uL Hgb (12.0-16.0) gm/dL Hct (36.0-48.0) % MCV (80.0-105.0) fL MCH (25.0-35.0) pg MCHC (31.0-37.0) g/dl RDW (11.5-14.5) % Plt Count (120.0-450.0) 10^3/uL MPV (7.0-11.0) fl Neutrophils % (Manual) (50.0-70.0) % Band Neutrophils % (0-2) % Lymphocytes % (Manual) (22.0-35.0) % Monocytes % (Manual) (1.0-6.0) % Platelet Evaluation (NORMAL) Anisocytosis (manual) pCO2 (35-45) mm/Hg pO2 (80-100) mm/Hg HCO3 (21-28) mmol/L ABG pH (7.35-7.45) ABG Total CO2 (22-28) mmol.L ABG O2 Saturation (95-98) % ABG O2 Content (15-23) ML/dl ABG Base Excess (-2.0-3.0) mmol/L ABG Hemoglobin (11.7-17.4) g/dL ABG Carboxyhemoglobin (0.5-1.5) % POC ABG HHb (Measured) (0-5) % ABG Methemoglobin (0.0-3.0) % ABG O2 Capacity (16-24) mL/dl Hgb O2 Saturation (95.0-98.0) % FiO2 % Sodium (132-148) mmol/L Potassium (3.6-5.0) mmol/L Chloride (98-107) mmol/L Carbon Dioxide (21-33) mmol/L Anion Gap (10-20) BUN (7-21) mg/dL Creatinine (0.5-1.4) mg/dL Est GFR ( Amer) Est GFR (Non-Af Amer) Random Glucose (70-110) mg/dL Calcium (8.4-10.5) mg/dL Phosphorus (2.5-4.5) mg/dL Magnesium (1.7-2.2) mg/dL Total Bilirubin (0.2-1.3) mg/dL AST (15-39) U/L ALT (7-56) U/L Alkaline Phosphatase (38-133) U/L Lactate Dehydrogenase 1043 H 620 (333-699) U/L Total Creatine Kinase 1383 H 496 H (35-230) U/L CK-MB (CK-2) 118.0 H 37.6 H (0.0-3.6) ng/mL CK-MB (CK-2) % 8.5 H 7.6 H (2.5-3.0) % Troponin I 47.50 H* D 6.67 H* D ng/mL Total Protein (5.8-8.3) g/dL Albumin (3.0-4.8) g/dL Globulin gm/dL Albumin/Globulin Ratio (1.1-1.8) Lipase (23-300) U/L Thyroxine (T4) 10.8 (5.5-11.0) ug/dL T3 Uptake 35.6 (23.0-41.0) % TSH 3rd Generation 2.61 (0.46-4.68) mIU/mL Urine Color (YELLOW) Urine Appearance (CLEAR) Urine pH (4.7-8.0) Ur Specific [place] (1.005-1.035) Urine Protein (<30 mg/dL) mg/dL Urine Glucose (UA) (NEGATIVE) mg/dL Urine Ketones (NEGATIVE) mg/dL Urine Blood (NEGATIVE) Urine Nitrate (NEGATIVE) Urine Bilirubin (NEGATIVE) Urine Urobilinogen (<1 E.U./dL) E.U./dL Ur Leukocyte Esterase (NEGATIVE) Michelle/uL Urine RBC (0-2) /hpf Urine WBC (0-6) /hpf Ur Epithelial Cells (0-5) /hpf Urine Bacteria (NEG) 03/16/17 Range/Units 11:45 WBC (4.5-11.0) 10^3/ul RBC (3.5-6.1) 10^6/uL Hgb (12.0-16.0) gm/dL Hct (36.0-48.0) % MCV (80.0-105.0) fL MCH (25.0-35.0) pg MCHC (31.0-37.0) g/dl RDW (11.5-14.5) % Plt Count (120.0-450.0) 10^3/uL MPV (7.0-11.0) fl Neutrophils % (Manual) (50.0-70.0) % Band Neutrophils % (0-2) % Lymphocytes % (Manual) (22.0-35.0) % Monocytes % (Manual) (1.0-6.0) % Platelet Evaluation (NORMAL) Anisocytosis (manual) pCO2 (35-45) mm/Hg pO2 (80-100) mm/Hg HCO3 (21-28) mmol/L ABG pH (7.35-7.45) ABG Total CO2 (22-28) mmol.L ABG O2 Saturation (95-98) % ABG O2 Content (15-23) ML/dl ABG Base Excess (-2.0-3.0) mmol/L ABG Hemoglobin (11.7-17.4) g/dL ABG Carboxyhemoglobin (0.5-1.5) % POC ABG HHb (Measured) (0-5) % ABG Methemoglobin (0.0-3.0) % ABG O2 Capacity (16-24) mL/dl Hgb O2 Saturation (95.0-98.0) % FiO2 % Sodium (132-148) mmol/L Potassium (3.6-5.0) mmol/L Chloride (98-107) mmol/L Carbon Dioxide (21-33) mmol/L Anion Gap (10-20) BUN (7-21) mg/dL Creatinine (0.5-1.4) mg/dL Est GFR ( Amer) Est GFR (Non-Af Amer) Random Glucose (70-110) mg/dL Calcium (8.4-10.5) mg/dL Phosphorus (2.5-4.5) mg/dL Magnesium (1.7-2.2) mg/dL Total Bilirubin (0.2-1.3) mg/dL AST (15-39) U/L ALT (7-56) U/L Alkaline Phosphatase (38-133) U/L Lactate Dehydrogenase (333-699) U/L Total Creatine Kinase (35-230) U/L CK-MB (CK-2) (0.0-3.6) ng/mL CK-MB (CK-2) % (2.5-3.0) % Troponin I ng/mL Total Protein (5.8-8.3) g/dL Albumin (3.0-4.8) g/dL Globulin gm/dL Albumin/Globulin Ratio (1.1-1.8) Lipase (23-300) U/L Thyroxine (T4) (5.5-11.0) ug/dL T3 Uptake (23.0-41.0) % TSH 3rd Generation (0.46-4.68) mIU/mL Urine Color Yellow (YELLOW) Urine Appearance Sl cloudy (CLEAR) Urine pH 6.0 (4.7-8.0) Ur Specific [place] 1.010 (1.005-1.035) Urine Protein Trace H (<30 mg/dL) mg/dL Urine Glucose (UA) 250 H (NEGATIVE) mg/dL Urine Ketones 15 H (NEGATIVE) mg/dL Urine Blood Moderate H (NEGATIVE) Urine Nitrate Negative (NEGATIVE) Urine Bilirubin Negative (NEGATIVE) Urine Urobilinogen 0.2 (<1 E.U./dL) E.U./dL Ur Leukocyte Esterase Negative (NEGATIVE) Michelle/uL Urine RBC 10 - 15 (0-2) /hpf Urine WBC 0 - 2 (0-6) /hpf Ur Epithelial Cells 3 - 4 (0-5) /hpf Urine Bacteria Few (NEG) Laboratory Results - last 24 hr 03/16/17 03/16/17 03/16/17 11:45 14:11 14:25 WBC RBC Hgb Hct MCV MCH MCHC RDW Plt Count MPV Neutrophils % (Manual) Band Neutrophils % Lymphocytes % (Manual) Monocytes % (Manual) Platelet Evaluation Anisocytosis (manual) pCO2 pO2 HCO3 ABG pH ABG Total CO2 ABG O2 Saturation ABG O2 Content ABG Base Excess ABG Hemoglobin ABG Carboxyhemoglobin POC ABG HHb (Measured) ABG Methemoglobin ABG O2 Capacity Hgb O2 Saturation FiO2 Sodium Potassium Chloride Carbon Dioxide Anion Gap BUN Creatinine Est GFR ( Amer) Est GFR (Non-Af Amer) Random Glucose Calcium Phosphorus Magnesium Total Bilirubin AST ALT Alkaline Phosphatase Lactate Dehydrogenase 620 Total Creatine Kinase 496 H CK-MB (CK-2) 37.6 H CK-MB (CK-2) % 7.6 H Troponin I 6.67 H* D Total Protein Albumin Globulin Albumin/Globulin Ratio Lipase Thyroxine (T4) 10.8 T3 Uptake 35.6 TSH 3rd Generation 2.61 Urine Color Yellow Urine Appearance Sl cloudy Urine pH 6.0 Ur Specific [place] 1.010 Urine Protein Trace H Urine Glucose (UA) 250 H Urine Ketones 15 H Urine Blood Moderate H Urine Nitrate Negative Urine Bilirubin Negative Urine Urobilinogen 0.2 Ur Leukocyte Esterase Negative Urine RBC 10 - 15 Urine WBC 0 - 2 Ur Epithelial Cells 3 - 4 Urine Bacteria Few 03/16/17 03/16/17 03/17/17 20:05 20:32 05:45 WBC RBC Hgb Hct MCV MCH MCHC RDW Plt Count MPV Neutrophils % (Manual) Band Neutrophils % Lymphocytes % (Manual) Monocytes % (Manual) Platelet Evaluation Anisocytosis (manual) pCO2 33 L pO2 66.0 L HCO3 20.9 L ABG pH 7.41 ABG Total CO2 21.9 L ABG O2 Saturation 94.8 L ABG O2 Content 15.1 ABG Base Excess -3.1 L ABG Hemoglobin 11.6 L ABG Carboxyhemoglobin 1.2 POC ABG HHb (Measured) 5.1 H ABG Methemoglobin 1.2 ABG O2 Capacity 15.9 L Hgb O2 Saturation 92.4 L FiO2 30.0 Sodium 136 Potassium 4.8 Chloride 104 Carbon Dioxide 26 Anion Gap 11 BUN 20 Creatinine 0.8 Est GFR ( Amer) > 60 Est GFR (Non-Af Amer) > 60 Random Glucose 262 H Calcium 9.1 Phosphorus 3.5 Magnesium 1.9 Total Bilirubin 1.1 AST 328 H ALT 72 H Alkaline Phosphatase 95 Lactate Dehydrogenase 1043 H Total Creatine Kinase 1383 H CK-MB (CK-2) 118.0 H CK-MB (CK-2) % 8.5 H Troponin I 47.50 H* D 71.60 H* D Total Protein 6.0 Albumin 3.2 Globulin 2.8 Albumin/Globulin Ratio 1.1 Lipase 65 Thyroxine (T4) T3 Uptake TSH 3rd Generation Urine Color Urine Appearance Urine pH Ur Specific [place] Urine Protein Urine Glucose (UA) Urine Ketones Urine Blood Urine Nitrate Urine Bilirubin Urine Urobilinogen Ur Leukocyte Esterase Urine RBC Urine WBC Ur Epithelial Cells Urine Bacteria 03/17/17 05:45 WBC 11.8 H D RBC 4.63 Hgb 12.4 Hct 38.2 MCV 82.5 MCH 26.8 MCHC 32.5 RDW 15.5 H Plt Count 277 MPV 10.8 Neutrophils % (Manual) 87 H Band Neutrophils % 4 H Lymphocytes % (Manual) 5 L Monocytes % (Manual) 4 Platelet Evaluation Normal Anisocytosis (manual) Slight pCO2 pO2 HCO3 ABG pH ABG Total CO2 ABG O2 Saturation ABG O2 Content ABG Base Excess ABG Hemoglobin ABG Carboxyhemoglobin POC ABG HHb (Measured) ABG Methemoglobin ABG O2 Capacity Hgb O2 Saturation FiO2 Sodium Potassium Chloride Carbon Dioxide Anion Gap BUN Creatinine Est GFR ( Amer) Est GFR (Non-Af Amer) Random Glucose Calcium Phosphorus Magnesium Total Bilirubin AST ALT Alkaline Phosphatase Lactate Dehydrogenase Total Creatine Kinase CK-MB (CK-2) CK-MB (CK-2) % Troponin I Total Protein Albumin Globulin Albumin/Globulin Ratio Lipase Thyroxine (T4) T3 Uptake TSH 3rd Generation Urine Color Urine Appearance Urine pH Ur Specific [place] Urine Protein Urine Glucose (UA) Urine Ketones Urine Blood Urine Nitrate Urine Bilirubin Urine Urobilinogen Ur Leukocyte Esterase Urine RBC Urine WBC Ur Epithelial Cells Urine Bacteria EKG/Cardiology Studies: Cardiology / EKG Studies 03/16/17 15:35 EKG [ELECTROCARDIOGRAM] Stat Comment: Reason For Exam: ABDOMINAL PAIN 03/16/17 17:30 EKG [ELECTROCARDIOGRAM] Routine Comment: Reason For Exam: NSTEMI 03/17/17 06:00 EKG [ELECTROCARDIOGRAM] Routine Comment: Reason For Exam: chest pain Fingerstick Blood Sugar Results: 241 Critical Care Progress Note - Nutrition Nutrition: Nutrition Category Date Time Status Heart Healthy Diet [DIET] Diets 03/17/17 Breakfast Ordered Assessment/Plan - Assessment and Plan (Free Text) Plan: 86 F with HTN/HLD, non-IDDM, COPD/past-smoker 1/[id number] years (quit 50 yr ago), Subtotal thyroidectomy for cancer, chronic colitis, admitted to ICU for NSTEMI. She has 1 episode of diarrhea in the setting of chronic colitis, transaminitis today, suspected 2/2 chronic condition vs vagal stimulation from ACS. Neuro No active issue Maintain normothermic Card Trops elevated to 6 -> 50 -> 71.6 TWI in anteriolateral leads Chronic RBBB No Pulm edema on CXR On heparin gtt, nitro gtt (slow flow) Dual antiplatetes, BB, high dose statin Pending Echo Cardiac cath tomorrow at 8:30am. Stop heparin gtt at 6am. NPO except meds after mid-night Pulm Wheezes and rhonchi on PE Brovana, Pulmicort, Spiriva O2 as needed Bipap PRN GI Transaminitis (AST 328. ALT 72). Continue observe for now HHD, Kosher Dietitian consult Hx of chronic colitis GI on board Continent. Repleted electrolytes with goal K4, Mg 2 Endo Glucosuria Pending A1c, TFT, lipids ISSS Goal BS 140-180 Heme Hb 12.4 ID No active issue WBC 6.8 --> 11.8 Prophylasix On heparin gtt Consult Pulm = Seun Card = Nicolastaurus GI = Shilpa s/r/d/w Dr. Alan Hoffmann - Date & Time Date: 03/17/17 Time: 09:44 <Shun QUICK,Bonny H - Last Filed: 03/17/17 14:29> CCU Objective - Vital Signs / Intake & Output Intake and Output (Last 8hrs): Intake & Output 03/16/17 03/17/17 03/17/17 22:59 06:59 14:59 Intake Total 190 236 50 Output Total 175 200 Balance 15 36 50 Weight 176 lb 5.917 oz 126 lb Intake: IV 50 36 50 Right Forearm 36 Oral 140 200 Output: Urine 175 200 Urine, Voided 175 200 Stool 0 Other: Voiding Method Bedside Commode Bedside Commode # Voids Urine, Voided 2 - Medications Active Medications: Active Medications Generic Name Dose Route Start Last Admin Trade Name Freq PRN Reason Stop Dose Admin Arformoterol Tartrate 15 mcg 03/16/17 20:00 03/17/17 07:43 Brovana IH 15 mcg [id number] LUCINA Administration Aspirin 81 mg 03/17/17 10:00 03/17/17 12:18 Ecotrin PO 81 mg DAILY LUCINA Administration Atorvastatin Calcium 80 mg 03/16/17 17:00 03/16/17 18:19 Lipitor PO 80 mg DIN LUCINA Administration Budesonide 0.5 mg 03/16/17 17:15 03/17/17 07:43 Pulmicort Respules IH 0.5 mg Q12H LUCINA Administration Clopidogrel Bisulfate 75 mg 03/17/17 10:00 03/17/17 12:18 Plavix PO 75 mg DAILY LUCINA Administration Nitroglycerin/Dextrose 50 mg in 250 mls @ 0.9 mls/hr 03/16/17 18:22 03/17/17 14:03 Nitroglycerin 50 Mg/250 Ml D5w IV 6.66 mcg/min .Q24H PRN 2 mls/hr Pain, moderate (4-7) Titration Protocol 3 MCG/MIN Heparin Sodium/Sodium Chloride 25,000 units in 250 mls @ 12.8 mls/hr 03/17/17 07:59 03/17/17 09:17 Heparin 59301 Units/250ml 1/2 Normal Saline IV 16 units/kg/hr .[id number] PRN 12.8 mls/hr ADJUST RATE PER PROTOCOL Administration Protocol 16 UNITS/KG/HR Insulin Human Lispro 0 units 03/17/17 11:30 03/17/17 12:17 Humalog Low SC 3 units ACHS LUCINA Administration Protocol Metoprolol Tartrate 25 mg 03/16/17 17:00 03/17/17 09:17 Lopressor PO 25 mg [id number] LUCINA Administration Ondansetron HCl 4 mg 03/16/17 18:24 03/16/17 23:03 Zofran Inj IVP 4 mg Q6H PRN Administration Nausea/Vomiting Pantoprazole Sodium 40 mg 03/17/17 06:00 03/17/17 06:25 Protonix Ec Tab PO 40 mg 0600 LUCINA Administration Tiotropium [place] 18 mcg 03/17/17 10:00 03/17/17 12:18 Spiriva IH 18 mcg DAILY LUCINA Administration - Patient Studies Lab Studies: Lab Studies 03/17/17 03/17/17 03/17/17 Range/Units 08:00 05:45 05:45 WBC 11.8 H D (4.5-11.0) 10^3/ul RBC 4.63 (3.5-6.1) 10^6/uL Hgb 12.4 (12.0-16.0) gm/dL Hct 38.2 (36.0-48.0) % MCV 82.5 (80.0-105.0) fL MCH 26.8 (25.0-35.0) pg MCHC 32.5 (31.0-37.0) g/dl RDW 15.5 H (11.5-14.5) % Plt Count 277 (120.0-450.0) 10^3/uL MPV 10.8 (7.0-11.0) fl Neutrophils % (Manual) 87 H (50.0-70.0) % Band Neutrophils % 4 H (0-2) % Lymphocytes % (Manual) 5 L (22.0-35.0) % Monocytes % (Manual) 4 (1.0-6.0) % Platelet Evaluation Normal (NORMAL) Anisocytosis (manual) Slight pCO2 (35-45) mm/Hg pO2 (80-100) mm/Hg HCO3 (21-28) mmol/L ABG pH (7.35-7.45) ABG Total CO2 (22-28) mmol.L ABG O2 Saturation (95-98) % ABG O2 Content (15-23) ML/dl ABG Base Excess (-2.0-3.0) mmol/L ABG Hemoglobin (11.7-17.4) g/dL ABG Carboxyhemoglobin (0.5-1.5) % POC ABG HHb (Measured) (0-5) % ABG Methemoglobin (0.0-3.0) % ABG O2 Capacity (16-24) mL/dl Hgb O2 Saturation (95.0-98.0) % FiO2 % Sodium 136 (132-148) mmol/L Potassium 4.8 (3.6-5.0) mmol/L Chloride 104 (98-107) mmol/L Carbon Dioxide 26 (21-33) mmol/L Anion Gap 11 (10-20) BUN 20 (7-21) mg/dL Creatinine 0.8 (0.5-1.4) mg/dL Est GFR ( Amer) > 60 Est GFR (Non-Af Amer) > 60 Random Glucose 262 H (70-110) mg/dL Calcium 9.1 (8.4-10.5) mg/dL Phosphorus 3.5 (2.5-4.5) mg/dL Magnesium 1.9 (1.7-2.2) mg/dL Total Bilirubin 1.1 (0.2-1.3) mg/dL AST 328 H (15-39) U/L ALT 72 H (7-56) U/L Alkaline Phosphatase 95 (38-133) U/L Lactate Dehydrogenase (333-699) U/L Total Creatine Kinase (35-230) U/L CK-MB (CK-2) (0.0-3.6) ng/mL CK-MB (CK-2) % (2.5-3.0) % Troponin I 71.60 H* D ng/mL Total Protein 6.0 (5.8-8.3) g/dL Albumin 3.2 (3.0-4.8) g/dL Globulin 2.8 gm/dL Albumin/Globulin Ratio 1.1 (1.1-1.8) Lipase 65 (23-300) U/L Thyroxine (T4) 8.6 (5.5-11.0) ug/dL T3 Uptake 35.6 (23.0-41.0) % TSH 3rd Generation 0.71 (0.46-4.68) mIU/mL 03/16/17 03/16/17 03/16/17 Range/Units 20:32 20:05 14:25 WBC (4.5-11.0) 10^3/ul RBC (3.5-6.1) 10^6/uL Hgb (12.0-16.0) gm/dL Hct (36.0-48.0) % MCV (80.0-105.0) fL MCH (25.0-35.0) pg MCHC (31.0-37.0) g/dl RDW (11.5-14.5) % Plt Count (120.0-450.0) 10^3/uL MPV (7.0-11.0) fl Neutrophils % (Manual) (50.0-70.0) % Band Neutrophils % (0-2) % Lymphocytes % (Manual) (22.0-35.0) % Monocytes % (Manual) (1.0-6.0) % Platelet Evaluation (NORMAL) Anisocytosis (manual) pCO2 33 L (35-45) mm/Hg pO2 66.0 L (80-100) mm/Hg HCO3 20.9 L (21-28) mmol/L ABG pH 7.41 (7.35-7.45) ABG Total CO2 21.9 L (22-28) mmol.L ABG O2 Saturation 94.8 L (95-98) % ABG O2 Content 15.1 (15-23) ML/dl ABG Base Excess -3.1 L (-2.0-3.0) mmol/L ABG Hemoglobin 11.6 L (11.7-17.4) g/dL ABG Carboxyhemoglobin 1.2 (0.5-1.5) % POC ABG HHb (Measured) 5.1 H (0-5) % ABG Methemoglobin 1.2 (0.0-3.0) % ABG O2 Capacity 15.9 L (16-24) mL/dl Hgb O2 Saturation 92.4 L (95.0-98.0) % FiO2 30.0 % Sodium (132-148) mmol/L Potassium (3.6-5.0) mmol/L Chloride (98-107) mmol/L Carbon Dioxide (21-33) mmol/L Anion Gap (10-20) BUN (7-21) mg/dL Creatinine (0.5-1.4) mg/dL Est GFR ( Amer) Est GFR (Non-Af Amer) Random Glucose (70-110) mg/dL Calcium (8.4-10.5) mg/dL Phosphorus (2.5-4.5) mg/dL Magnesium (1.7-2.2) mg/dL Total Bilirubin (0.2-1.3) mg/dL AST (15-39) U/L ALT (7-56) U/L Alkaline Phosphatase (38-133) U/L Lactate Dehydrogenase 1043 H 620 (333-699) U/L Total Creatine Kinase 1383 H 496 H (35-230) U/L CK-MB (CK-2) 118.0 H 37.6 H (0.0-3.6) ng/mL CK-MB (CK-2) % 8.5 H 7.6 H (2.5-3.0) % Troponin I 47.50 H* D 6.67 H* D ng/mL Total Protein (5.8-8.3) g/dL Albumin (3.0-4.8) g/dL Globulin gm/dL Albumin/Globulin Ratio (1.1-1.8) Lipase (23-300) U/L Thyroxine (T4) (5.5-11.0) ug/dL T3 Uptake (23.0-41.0) % TSH 3rd Generation (0.46-4.68) mIU/mL 03/16/17 Range/Units 14:11 WBC (4.5-11.0) 10^3/ul RBC (3.5-6.1) 10^6/uL Hgb (12.0-16.0) gm/dL Hct (36.0-48.0) % MCV (80.0-105.0) fL MCH (25.0-35.0) pg MCHC (31.0-37.0) g/dl RDW (11.5-14.5) % Plt Count (120.0-450.0) 10^3/uL MPV (7.0-11.0) fl Neutrophils % (Manual) (50.0-70.0) % Band Neutrophils % (0-2) % Lymphocytes % (Manual) (22.0-35.0) % Monocytes % (Manual) (1.0-6.0) % Platelet Evaluation (NORMAL) Anisocytosis (manual) pCO2 (35-45) mm/Hg pO2 (80-100) mm/Hg HCO3 (21-28) mmol/L ABG pH (7.35-7.45) ABG Total CO2 (22-28) mmol.L ABG O2 Saturation (95-98) % ABG O2 Content (15-23) ML/dl ABG Base Excess (-2.0-3.0) mmol/L ABG Hemoglobin (11.7-17.4) g/dL ABG Carboxyhemoglobin (0.5-1.5) % POC ABG HHb (Measured) (0-5) % ABG Methemoglobin (0.0-3.0) % ABG O2 Capacity (16-24) mL/dl Hgb O2 Saturation (95.0-98.0) % FiO2 % Sodium (132-148) mmol/L Potassium (3.6-5.0) mmol/L Chloride (98-107) mmol/L Carbon Dioxide (21-33) mmol/L Anion Gap (10-20) BUN (7-21) mg/dL Creatinine (0.5-1.4) mg/dL Est GFR ( Amer) Est GFR (Non-Af Amer) Random Glucose (70-110) mg/dL Calcium (8.4-10.5) mg/dL Phosphorus (2.5-4.5) mg/dL Magnesium (1.7-2.2) mg/dL Total Bilirubin (0.2-1.3) mg/dL AST (15-39) U/L ALT (7-56) U/L Alkaline Phosphatase (38-133) U/L Lactate Dehydrogenase (333-699) U/L Total Creatine Kinase (35-230) U/L CK-MB (CK-2) (0.0-3.6) ng/mL CK-MB (CK-2) % (2.5-3.0) % Troponin I ng/mL Total Protein (5.8-8.3) g/dL Albumin (3.0-4.8) g/dL Globulin gm/dL Albumin/Globulin Ratio (1.1-1.8) Lipase (23-300) U/L Thyroxine (T4) 10.8 (5.5-11.0) ug/dL T3 Uptake 35.6 (23.0-41.0) % TSH 3rd Generation 2.61 (0.46-4.68) mIU/mL Laboratory Results - last 24 hr 03/16/17 03/16/17 03/16/17 14:11 14:25 20:05 WBC RBC Hgb Hct MCV MCH MCHC RDW Plt Count MPV Neutrophils % (Manual) Band Neutrophils % Lymphocytes % (Manual) Monocytes % (Manual) Platelet Evaluation Anisocytosis (manual) pCO2 pO2 HCO3 ABG pH ABG Total CO2 ABG O2 Saturation ABG O2 Content ABG Base Excess ABG Hemoglobin ABG Carboxyhemoglobin POC ABG HHb (Measured) ABG Methemoglobin ABG O2 Capacity Hgb O2 Saturation FiO2 Sodium Potassium Chloride Carbon Dioxide Anion Gap BUN Creatinine Est GFR ( Amer) Est GFR (Non-Af Amer) Random Glucose Calcium Phosphorus Magnesium Total Bilirubin AST ALT Alkaline Phosphatase Lactate Dehydrogenase 620 1043 H Total Creatine Kinase 496 H 1383 H CK-MB (CK-2) 37.6 H 118.0 H CK-MB (CK-2) % 7.6 H 8.5 H Troponin I 6.67 H* D 47.50 H* D Total Protein Albumin Globulin Albumin/Globulin Ratio Lipase Thyroxine (T4) 10.8 T3 Uptake 35.6 TSH 3rd Generation 2.61 03/16/17 03/17/17 03/17/17 20:32 05:45 05:45 WBC 11.8 H D RBC 4.63 Hgb 12.4 Hct 38.2 MCV 82.5 MCH 26.8 MCHC 32.5 RDW 15.5 H Plt Count 277 MPV 10.8 Neutrophils % (Manual) 87 H Band Neutrophils % 4 H Lymphocytes % (Manual) 5 L Monocytes % (Manual) 4 Platelet Evaluation Normal Anisocytosis (manual) Slight pCO2 33 L pO2 66.0 L HCO3 20.9 L ABG pH 7.41 ABG Total CO2 21.9 L ABG O2 Saturation 94.8 L ABG O2 Content 15.1 ABG Base Excess -3.1 L ABG Hemoglobin 11.6 L ABG Carboxyhemoglobin 1.2 POC ABG HHb (Measured) 5.1 H ABG Methemoglobin 1.2 ABG O2 Capacity 15.9 L Hgb O2 Saturation 92.4 L FiO2 30.0 Sodium 136 Potassium 4.8 Chloride 104 Carbon Dioxide 26 Anion Gap 11 BUN 20 Creatinine 0.8 Est GFR ( Amer) > 60 Est GFR (Non-Af Amer) > 60 Random Glucose 262 H Calcium 9.1 Phosphorus 3.5 Magnesium 1.9 Total Bilirubin 1.1 AST 328 H ALT 72 H Alkaline Phosphatase 95 Lactate Dehydrogenase Total Creatine Kinase CK-MB (CK-2) CK-MB (CK-2) % Troponin I 71.60 H* D Total Protein 6.0 Albumin 3.2 Globulin 2.8 Albumin/Globulin Ratio 1.1 Lipase 65 Thyroxine (T4) T3 Uptake TSH 3rd Generation 03/17/17 08:00 WBC RBC Hgb Hct MCV MCH MCHC RDW Plt Count MPV Neutrophils % (Manual) Band Neutrophils % Lymphocytes % (Manual) Monocytes % (Manual) Platelet Evaluation Anisocytosis (manual) pCO2 pO2 HCO3 ABG pH ABG Total CO2 ABG O2 Saturation ABG O2 Content ABG Base Excess ABG Hemoglobin ABG Carboxyhemoglobin POC ABG HHb (Measured) ABG Methemoglobin ABG O2 Capacity Hgb O2 Saturation FiO2 Sodium Potassium Chloride Carbon Dioxide Anion Gap BUN Creatinine Est GFR ( Amer) Est GFR (Non-Af Amer) Random Glucose Calcium Phosphorus Magnesium Total Bilirubin AST ALT Alkaline Phosphatase Lactate Dehydrogenase Total Creatine Kinase CK-MB (CK-2) CK-MB (CK-2) % Troponin I Total Protein Albumin Globulin Albumin/Globulin Ratio Lipase Thyroxine (T4) 8.6 T3 Uptake 35.6 TSH 3rd Generation 0.71 EKG/Cardiology Studies: Cardiology / EKG Studies 03/16/17 15:35 EKG [ELECTROCARDIOGRAM] Stat Comment: Reason For Exam: ABDOMINAL PAIN 03/16/17 17:30 EKG [ELECTROCARDIOGRAM] Routine Comment: Reason For Exam: NSTEMI 03/17/17 06:00 EKG [ELECTROCARDIOGRAM] Routine Comment: Reason For Exam: chest pain Critical Care Progress Note - Nutrition Nutrition: Nutrition Category Date Time Status Heart Healthy Diet [DIET] Diets 03/17/17 Breakfast Ordered Attending/Attestation - Attestation I have personally seen and examined this patient.: Yes I have fully participated in the care of the patient.: Yes I have reviewed all pertinent clinical information: Yes Notes (Text): 03/17/17 14:27 86 y/o F w/ NSTEMI ACS on Nitro-G drip , titrate to comfort On Heparin drip, asprin, plavix , statin( monitor LFT) and Beta blockers given. Plan for Cardiac cath on Tuesday per Cardiology group. No signs of clinical worsening. No Cardiogenic shock. PPI DVT P on Heparin drip. cc time 45 min
[2017-03-17 09:52] LABS: T3 UPTAKE 35.6 % (23.0-41.0); T4 8.6 ug/dL (5.5-11.0)
[2017-03-17 10:05] LABS: THYROID STIMULATING HORMONE 0.71 mIU/mL (0.46-4.68)
--- NOTE | 2017-03-17 10:21 | RAD ---
HISTORY: Shortness of breath COMPARISON: 03/16/2017. FINDINGS: LUNGS: There is interval development of right upper lobe airspace disease. The lungs are hyperinflated and there is peribronchial thickening with chronic changes in both lungs. . PLEURA: No significant pleural effusion identified, no pneumothorax apparent. CARDIOVASCULAR: Normal. OSSEOUS STRUCTURES: No significant abnormalities. VISUALIZED UPPER ABDOMEN: Normal. OTHER FINDINGS: None. IMPRESSION: Question of developing right upper lobe pneumonia. Follow-up after medical management is recommended to ensure complete resolution. COPD.
[2017-03-17] MEDS: Insulin Lispro (humaLOG) LOW Coverage SC SCH ×3 (12:17→22:05)
[2017-03-17] MEDS: Tiotropium 18 mcg Cap For Inhalation IH SCH (12:18)
[2017-03-17] MEDS ORDERED: Azithromycin 500MG/NS 250ml 500 MG/250 ML BAG IVPB STA (14:50)
--- NOTE | 2017-03-17 16:19 | PN ---
DATE: 03/17/2017 HISTORY OF PRESENT ILLNESS: The patient was seen and examined earlier today in CCU. The patient den ies any episodes of diarrhea, nausea or vomiting. No complaints of any shortness of breath or chest pain at this time. VITAL SIGNS: Blood pressure is 130/81, pulse is 96, respirations 18, 97% O2 saturation. LABORATORY DATA: Today, WBC is 11.8, H and H is 12.4 and 38.2, platelet is 277. Sodium 136, K 4.8, BUN is 20, creatinine is 0.5. Total bilirubin is 1.1, AST is 328, ALT 72, alkaline phosphatase is 95 . The patient's troponin this morning is 71.6. there is an increase in the troponin. The patient moya d a chest x-ray this morning and it shows a question of developing right upper lobe pneumonia. No pl eural effusion, no pneumothorax. PHYSICAL EXAMINATION: HEENT: Sclerae anicteric. NECK: Supple. CARDIAC: S1, S2. LUNGS: Clear breath sounds, no rales or wheeze. ABDOMEN: With bowel sounds, soft, nontender, no rebound or guarding. EXTREMITIES: No edema. NEUROLOGIC: Awake, alert, and oriented. ASSESSMENT: This is an 86-year-old female who came with abdominal pain, shoulder pain, and complaint s of nausea and diarrhea. The patient was found to have non-ST segment myocardial infarction. She d id have one episode of diarrhea with history of chronic colitis. The patient is noted to have elevat ed transaminitis. It may be secondary to hepatic congestion. Other comorbidities are hypothyroidism and dyslipidemia. PLAN: The patient is to continue diet as tolerated. She was able to tolerate some fluids this morni ng. Continue GI prophylaxis. She is on Protonix. The patient is now on nitro-drip, on heparin drip and is going to start on Plavix. She has also been placed on azithromycin. Monitor LFTs as per car diology and ICU team. Plan is patient for cardiac catheterization tomorrow. The patient was seen and case discussed with Dr. Massey. Rosa Isela MEYER cc: [id number] TT: 03/17/2017 16:18:47 Confirmation # [id number] Dictation # [id number] ln
--- NOTE | 2017-03-17 18:23 | PN ---
DATE: 03/17/2017 SUBJECTIVE: The patient is resting in bed this morning. Nursing staff states that she had a relativ yue comfortable night. The nausea seemed to improve after she was started on IV Tridil. She has sapphire erated the current diet. She is alert and oriented x 3. PHYSICAL EXAMINATION: VITAL SIGNS: Her blood pressure is 114/68, oxygen sat is 97%, respiratory rate is 18. NECK: Supple. LUNGS: Show some rhonchi. HEART: An S1, S2 rhythm. ABDOMEN: Soft with positive bowel sounds. EXTREMITIES: Show no evidence of edema. NEUROLOGIC: She is alert and oriented x 3. LABORATORY DATA: Shows a WBC of 11.8, RBC 4.63, hemoglobin 12.4, hematocrit 38.2, platelet count 277 . Her PTT is 75.3. She is on heparin. Chemistry shows normal electrolytes, the BUN is 20, creatini ne is 0.8, blood sugar is 262. Her AST is 328, the ALT is 72. The troponin is now 71.6. MEDICATIONS: She is on 81 mg Ecotrin, Brovana respiratory treatments for her COPD. She is on IV hep jimi for her [place]. She is on a Humalog sliding scale for her diabetes, Lipitor 80 mg daily for cholest sharron, Lopressor 25 mg twice a day. She is on a Tridil drip. She has been placed on Plavix 75 mg nan ly, Protonix 40 mg daily. She is on Pulmicort 0.5, Spiriva 18 mcg daily, Synthroid 125 mcg daily, an d Zofran 4 mg daily. The TSH level is 0.71, T4 is 8.6, and T3 is 35.6. Lipase is 65. ASSESSMENT: 1. Acute non-ST myocardial infarction. 2. Chronic obstructive pulmonary disease. 3. [id number] diabetes. 4. Hypothyroid disease. PLAN: At this particular point in time, based upon the interpretation of the chest x-ray, the patient will be followed by pulmonary and the certified surgical first assistant. She is scheduled for cardiac catheterization in the [facility]. Will continue current level of care. Follow the patient's labs closely. Patricia Rivera MD cc: [id number] TT: 03/17/2017 18:22:26 Confirmation # [id number] Dictation # [id number] dn
--- NOTE | 2017-03-17 23:49 | CARD ---
APPROVED REPORT EKG Measurement Heart [id number] <Conclusion> Sinus rhythm with premature atrial complexes Right bundle branch block Left anterior fascicular block Bifascicular block Cannot rule out Inferior infarct (masked by fascicular block?), age undetermined Anterolateral infarct, age undetermined Abnormal ECG
--- NOTE | 2017-03-17 23:55 | PN ---
DATE: 03/17/2017 ADDENDUM: This is an addendum to the GI progress report dictated by Rosa Isela Fields APN. SUBJECTIVE: The patient comfortable, tolerating liquid diet. No complaints of any abdominal pain. This is an addendum to the GI progress report dictated by Rosa Isela Fields APN. IMPRESSION: This 86-year-old patient is admitted with acute myocardial infarction with increasing tr oponin levels. Continue the clinical cardiac followup. Episode of diarrhea, nausea and vomiting is improved. Will slowly advance the diet. Thank you very much for allowing us to participate in the care of the patient. Susan Massey MD cc: [phone] TT: 03/17/2017 23:55:12 Confirmation # [id number] Dictation # [id number] mn
--- NOTE | 2017-03-18 00:01 | CARD ---
APPROVED REPORT EKG Measurement Heart [id number] [place] 154P75 [id number] <Conclusion> Sinus rhythm with fusion complexes Right bundle branch block Left anterior fascicular block Bifascicular block Cannot rule out Inferior infarct (masked by fascicular block?), age undetermined Anterolateral infarct, age undetermined Abnormal ECG
--- NOTE | 2017-03-18 00:03 | CARD ---
APPROVED REPORT EKG Measurement Heart [id number] <Conclusion> Sinus rhythm with premature atrial complexes Right bundle branch block Left anterior fascicular block Bifascicular block Anterolateral infarct, age undetermined Consider old inferior infarct Abnormal ECG
[2017-03-18] MEDS: Pantoprazole 40 mg EC Tab PO SCH (05:42)
[2017-03-18] MEDS ORDERED: Levothyroxine 125 MCG TAB PO SCH (06:00)
[2017-03-18 06:45] LABS: ADD MANUAL DIFF? NO
[2017-03-18 07:07] LABS: GRAN # 6.81 (1.4-6.5); GRAN % 82.6 % (50.0-68.0); HEMATOCRIT 40.6 % (36.0-48.0); LYMPH # 0.2 (1.2-3.4); LYMPH % 2.7 % (22.0-35.0); MEAN CELL VOLUME 81.4 fL (80.0-105.0); MEAN CORPUSCULAR HEMOGLOBIN 26.3 pg (25.0-35.0); MEAN CORPUSCULAR HGB CONC 32.3 g/dl (31.0-37.0); MEAN PLATELET VOLUME 11.1 fl (7.0-11.0); MONO # 1.2 (0.1-0.6); MONO % 14.7 % (1.0-6.0); PLATELET COUNT 245 10^3/uL (120.0-450.0); RED CELL DISTRIBUTION WIDTH 15.5 % (11.5-14.5); WHITE BLOOD COUNT 8.2 10^3/ul (4.5-11.0)
[2017-03-18 07:15] LABS: ALB/GLOB RATIO 1.2 (1.1-1.8); ALKALINE PHOSPHATASE 94 U/L (38-133); ALT/SGPT 66 U/L (7-56); AST/SGOT 191 U/L (15-39); BILIRUBIN,TOTAL 1.4 mg/dL (0.2-1.3); BLOOD UREA NITROGEN 21 mg/dL (7-21); CALCIUM 8.5 mg/dL (8.4-10.5); CARBON DIOXIDE 28 mmol/L (21-33); CHLORIDE 99 mmol/L (98-107); CHOLESTEROL 163 mg/dL (130-200); GFR AFRICAN-AMERICAN > 60; GLUCOSE,RANDOM 219 mg/dL (70-110); POTASSIUM 4.4 mmol/L (3.6-5.0); SODIUM 133 mmol/L (132-148); TOTAL PROTEIN 6.1 g/dL (5.8-8.3)
[2017-03-18] MEDS: Heparin25000 units/250ml 1/2NS 25,000 UNITS/250 ML BAG IV PRN (07:15)
[2017-03-18] MEDS: Arformoterol 15 mcg/2 ml Inh Sol IH SCH (07:37)
[2017-03-18] MEDS: Budesonide 0.5 mg/2 ml Inhal Susp UD IH SCH (07:37)
--- NOTE | 2017-03-18 07:46 | CP.CCUPN ---
<Giulia Davenport - Last Filed: 03/18/17 12:39> CCU Subjective - Physician Review Subjective (Free Text): 03/17/17 09:44 Less nsauseous. VSS. No CP, SOB, or other complaints. 03/18/17 07:44 Nauseousness completely resolved. No CP, SOB, diaphoresis. pain anywhere. slept better 03/18/17 12:32 HR 140s-150s, Afib RVR. CCU Objective - Vital Signs / Intake & Output Vital Signs (Last 4 hours): Vital Signs Pulse Resp BP Pulse Ox 03/18/17 06:00 93 H 26 H 136/70 98 03/18/17 05:49 99 H 28 H 132/76 100 03/18/17 05:00 96 H 99 03/18/17 04:00 96 H 26 H 99 Intake and Output (Last 8hrs): Intake & Output 03/17/17 03/18/17 03/18/17 22:59 06:59 14:59 Intake Total 420 100 Output Total 100 Balance 320 100 Intake: IV 270 100 Right Forearm 120 Oral 150 Output: Urine 100 Urine, Voided 100 Other: Voiding Method Bedside Commode - Physical Exam Head: Positive for: Atraumatic, Normocephalic Pupils: Positive for: PERRL Extroacular Muscles: Positive for: EOMI Conjunctiva: Positive for: Normal Mouth: Positive for: Moist Mucous Membranes Neck: Positive for: Normal Range of Motion Respiratory/Chest: Positive for: Clear to Auscultation, Good Air Exchange. Negative for: Respiratory Distress, Accessory Muscle Use Cardiovascular: Positive for: Regular Rate and Rhythm, Normal S1, S2. Negative for: Murmurs Abdomen: Positive for: Tenderness (mild non focal ) Upper Extremity: Negative for: Tenderness Lower Extremity: Positive for: Normal Inspection. Negative for: Edema Neurological: Positive for: GCS=15, CN II-XII Intact, Speech Normal Skin: Positive for: Warm, Dry, Normal Color. Negative for: Rashes Psychiatric: Positive for: Alert, Oriented x 3, Normal Insight, Normal Concentration - Medications Active Medications: Active Medications Generic Name Dose Route Start Last Admin Trade Name Freq PRN Reason Stop Dose Admin Arformoterol Tartrate 15 mcg 03/16/17 20:00 03/18/17 07:37 Brovana IH 15 mcg [id number] LUCINA Administration Aspirin 81 mg 03/17/17 10:00 03/17/17 12:18 Ecotrin PO 81 mg DAILY LUCINA Administration Atorvastatin Calcium 80 mg 03/16/17 17:00 03/17/17 17:54 Lipitor PO 80 mg DIN LUCINA Administration Budesonide 0.5 mg 03/16/17 17:15 03/18/17 07:37 Pulmicort Respules IH 0.5 mg Q12H LUCINA Administration Clopidogrel Bisulfate 75 mg 03/17/17 10:00 03/17/17 12:18 Plavix PO 75 mg DAILY LUCINA Administration Nitroglycerin/Dextrose 50 mg in 250 mls @ 0.9 mls/hr 03/16/17 18:22 03/17/17 14:03 Nitroglycerin 50 Mg/250 Ml D5w IV 6.66 mcg/min .Q24H PRN 2 mls/hr Pain, moderate (4-7) Titration Protocol 3 MCG/MIN Heparin Sodium/Sodium Chloride 25,000 units in 250 mls @ 12.8 mls/hr 03/17/17 07:59 03/18/17 07:15 Heparin 83154 Units/250ml 1/2 Normal Saline IV 13 units/kg/hr .[id number] PRN 10.4 mls/hr ADJUST RATE PER PROTOCOL Administration Protocol 16 UNITS/KG/HR Insulin Human Lispro 0 units 03/17/17 11:30 03/17/17 22:05 Humalog Low SC Not Given [facility] Protocol Levothyroxine Sodium 125 mcg 03/18/17 06:00 03/18/17 07:21 Synthroid PO 125 mcg 0600 LUCINA Administration Metoprolol Tartrate 25 mg 03/16/17 17:00 03/17/17 17:54 Lopressor PO 25 mg BRKDIN LUCINA Administration Ondansetron HCl 4 mg 03/16/17 18:24 03/16/17 23:03 Zofran Inj IVP 4 mg Q6H PRN Administration Nausea/Vomiting Pantoprazole Sodium 40 mg 03/17/17 06:00 03/18/17 05:42 Protonix Ec Tab PO 40 mg 0600 LUCINA Administration Tiotropium [place] 18 mcg 03/17/17 10:00 03/17/17 12:18 Spiriva IH 18 mcg DAILY LUCINA Administration - Patient Studies Lab Studies: Microbiology Studies 03/16/17 18:45 MRSA Culture (Admit) - Final Naris MRSA NOT DETECTED Lab Studies 03/18/17 03/18/17 03/17/17 Range/Units 06:00 06:00 22:43 WBC 8.2 D (4.5-11.0) 10^3/ul RBC 4.99 (3.5-6.1) 10^6/uL Hgb 13.1 (12.0-16.0) gm/dL Hct 40.6 (36.0-48.0) % MCV 81.4 (80.0-105.0) fL MCH 26.3 (25.0-35.0) pg MCHC 32.3 (31.0-37.0) g/dl RDW 15.5 H (11.5-14.5) % Plt Count 245 (120.0-450.0) 10^3/uL MPV 11.1 H (7.0-11.0) fl Gran % 82.6 H (50.0-68.0) % Lymph % (Auto) 2.7 L (22.0-35.0) % [place] % (Auto) 14.7 H (1.0-6.0) % Eos % (Auto) 0.0 L (1.5-5.0) % Baso % (Auto) 0.0 (0.0-3.0) % Gran # 6.81 H (1.4-6.5) Lymph # 0.2 L (1.2-3.4) [place] # 1.2 H (0.1-0.6) Eos # 0.0 (0.0-0.7) Baso # 0.00 (0.0-2.0) K/mm3 Neutrophils % (Manual) (50.0-70.0) % Band Neutrophils % (0-2) % Lymphocytes % (Manual) (22.0-35.0) % Monocytes % (Manual) (1.0-6.0) % Platelet Evaluation (NORMAL) Anisocytosis (manual) APTT 102.8 H* (23.7-30.8) Seconds Sodium 133 (132-148) mmol/L Potassium 4.4 (3.6-5.0) mmol/L Chloride 99 (98-107) mmol/L Carbon Dioxide 28 (21-33) mmol/L Anion Gap 10 (10-20) BUN 21 (7-21) mg/dL Creatinine 0.7 (0.5-1.4) mg/dL Est GFR ( Amer) > 60 Est GFR (Non-Af Amer) > 60 POC Glucose (mg/dL) (65-110) mg/dL Random Glucose 219 H (70-110) mg/dL Calcium 8.5 (8.4-10.5) mg/dL Phosphorus 3.0 (2.5-4.5) mg/dL Magnesium 2.0 (1.7-2.2) mg/dL Total Bilirubin 1.4 H (0.2-1.3) mg/dL AST 191 H (15-39) U/L ALT 66 H (7-56) U/L Alkaline Phosphatase 94 (38-133) U/L Troponin I 46.20 H* D ng/mL Total Protein 6.1 (5.8-8.3) g/dL Albumin 3.3 (3.0-4.8) g/dL Globulin 2.8 gm/dL Albumin/Globulin Ratio 1.2 (1.1-1.8) Triglycerides 104 (35-160) mg/dL Cholesterol 163 (130-200) mg/dL LDL Cholesterol Direct 82 (0-129) mg/dL HDL Cholesterol 80 H (29-60) mg/dL Thyroxine (T4) (5.5-11.0) ug/dL T3 Uptake (23.0-41.0) % TSH 3rd Generation (0.46-4.68) mIU/mL 03/17/17 03/17/17 03/17/17 Range/Units 21:44 16:41 16:22 WBC (4.5-11.0) 10^3/ul RBC (3.5-6.1) 10^6/uL Hgb (12.0-16.0) gm/dL Hct (36.0-48.0) % MCV (80.0-105.0) fL MCH (25.0-35.0) pg MCHC (31.0-37.0) g/dl RDW (11.5-14.5) % Plt Count (120.0-450.0) 10^3/uL MPV (7.0-11.0) fl Gran % (50.0-68.0) % Lymph % (Auto) (22.0-35.0) % [place] % (Auto) (1.0-6.0) % Eos % (Auto) (1.5-5.0) % Baso % (Auto) (0.0-3.0) % Gran # (1.4-6.5) Lymph # (1.2-3.4) [place] # (0.1-0.6) Eos # (0.0-0.7) Baso # (0.0-2.0) K/mm3 Neutrophils % (Manual) (50.0-70.0) % Band Neutrophils % (0-2) % Lymphocytes % (Manual) (22.0-35.0) % Monocytes % (Manual) (1.0-6.0) % Platelet Evaluation (NORMAL) Anisocytosis (manual) APTT 75.3 H* (23.7-30.8) Seconds Sodium (132-148) mmol/L Potassium (3.6-5.0) mmol/L Chloride (98-107) mmol/L Carbon Dioxide (21-33) mmol/L Anion Gap (10-20) BUN (7-21) mg/dL Creatinine (0.5-1.4) mg/dL Est GFR ( Amer) Est GFR (Non-Af Amer) POC Glucose (mg/dL) 188 H 220 H (65-110) mg/dL Random Glucose (70-110) mg/dL Calcium (8.4-10.5) mg/dL Phosphorus (2.5-4.5) mg/dL Magnesium (1.7-2.2) mg/dL Total Bilirubin (0.2-1.3) mg/dL AST (15-39) U/L ALT (7-56) U/L Alkaline Phosphatase (38-133) U/L Troponin I ng/mL Total Protein (5.8-8.3) g/dL Albumin (3.0-4.8) g/dL Globulin gm/dL Albumin/Globulin Ratio (1.1-1.8) Triglycerides (35-160) mg/dL Cholesterol (130-200) mg/dL LDL Cholesterol Direct (0-129) mg/dL HDL Cholesterol (29-60) mg/dL Thyroxine (T4) (5.5-11.0) ug/dL T3 Uptake (23.0-41.0) % TSH 3rd Generation (0.46-4.68) mIU/mL 03/17/17 03/17/17 03/17/17 Range/Units 11:27 08:00 05:45 WBC (4.5-11.0) 10^3/ul RBC (3.5-6.1) 10^6/uL Hgb (12.0-16.0) gm/dL Hct (36.0-48.0) % MCV (80.0-105.0) fL MCH (25.0-35.0) pg MCHC (31.0-37.0) g/dl RDW (11.5-14.5) % Plt Count (120.0-450.0) 10^3/uL MPV (7.0-11.0) fl Gran % (50.0-68.0) % Lymph % (Auto) (22.0-35.0) % [place] % (Auto) (1.0-6.0) % Eos % (Auto) (1.5-5.0) % Baso % (Auto) (0.0-3.0) % Gran # (1.4-6.5) Lymph # (1.2-3.4) [place] # (0.1-0.6) Eos # (0.0-0.7) Baso # (0.0-2.0) K/mm3 Neutrophils % (Manual) 87 H (50.0-70.0) % Band Neutrophils % 4 H (0-2) % Lymphocytes % (Manual) 5 L (22.0-35.0) % Monocytes % (Manual) 4 (1.0-6.0) % Platelet Evaluation Normal (NORMAL) Anisocytosis (manual) Slight APTT (23.7-30.8) Seconds Sodium (132-148) mmol/L Potassium (3.6-5.0) mmol/L Chloride (98-107) mmol/L Carbon Dioxide (21-33) mmol/L Anion Gap (10-20) BUN (7-21) mg/dL Creatinine (0.5-1.4) mg/dL Est GFR ( Amer) Est GFR (Non-Af Amer) POC Glucose (mg/dL) 271 H (65-110) mg/dL Random Glucose (70-110) mg/dL Calcium (8.4-10.5) mg/dL Phosphorus (2.5-4.5) mg/dL Magnesium (1.7-2.2) mg/dL Total Bilirubin (0.2-1.3) mg/dL AST (15-39) U/L ALT (7-56) U/L Alkaline Phosphatase (38-133) U/L Troponin I ng/mL Total Protein (5.8-8.3) g/dL Albumin (3.0-4.8) g/dL Globulin gm/dL Albumin/Globulin Ratio (1.1-1.8) Triglycerides (35-160) mg/dL Cholesterol (130-200) mg/dL LDL Cholesterol Direct (0-129) mg/dL HDL Cholesterol (29-60) mg/dL Thyroxine (T4) 8.6 (5.5-11.0) ug/dL T3 Uptake 35.6 (23.0-41.0) % TSH 3rd Generation 0.71 (0.46-4.68) mIU/mL Laboratory Results - last 24 hr 03/17/17 03/17/17 03/17/17 05:45 08:00 11:27 WBC RBC Hgb Hct MCV MCH MCHC RDW Plt Count MPV Gran % Lymph % (Auto) [place] % (Auto) Eos % (Auto) Baso % (Auto) Gran # Lymph # [place] # Eos # Baso # Neutrophils % (Manual) 87 H Band Neutrophils % 4 H Lymphocytes % (Manual) 5 L Monocytes % (Manual) 4 Platelet Evaluation Normal Anisocytosis (manual) Slight APTT Sodium Potassium Chloride Carbon Dioxide Anion Gap BUN Creatinine Est GFR ( Amer) Est GFR (Non-Af Amer) POC Glucose (mg/dL) 271 H Random Glucose Calcium Phosphorus Magnesium Total Bilirubin AST ALT Alkaline Phosphatase Troponin I Total Protein Albumin Globulin Albumin/Globulin Ratio Triglycerides Cholesterol LDL Cholesterol Direct HDL Cholesterol Thyroxine (T4) 8.6 T3 Uptake 35.6 TSH 3rd Generation 0.71 03/17/17 03/17/17 03/17/17 16:22 16:41 21:44 WBC RBC Hgb Hct MCV MCH MCHC RDW Plt Count MPV Gran % Lymph % (Auto) [place] % (Auto) Eos % (Auto) Baso % (Auto) Gran # Lymph # [place] # Eos # Baso # Neutrophils % (Manual) Band Neutrophils % Lymphocytes % (Manual) Monocytes % (Manual) Platelet Evaluation Anisocytosis (manual) APTT 75.3 H* Sodium Potassium Chloride Carbon Dioxide Anion Gap BUN Creatinine Est GFR ( Amer) Est GFR (Non-Af Amer) POC Glucose (mg/dL) 220 H 188 H Random Glucose Calcium Phosphorus Magnesium Total Bilirubin AST ALT Alkaline Phosphatase Troponin I Total Protein Albumin Globulin Albumin/Globulin Ratio Triglycerides Cholesterol LDL Cholesterol Direct HDL Cholesterol Thyroxine (T4) T3 Uptake TSH 3rd Generation 03/17/17 03/18/17 03/18/17 22:43 06:00 06:00 WBC 8.2 D RBC 4.99 Hgb 13.1 Hct 40.6 MCV 81.4 MCH 26.3 MCHC 32.3 RDW 15.5 H Plt Count 245 MPV 11.1 H Gran % 82.6 H Lymph % (Auto) 2.7 L [place] % (Auto) 14.7 H Eos % (Auto) 0.0 L Baso % (Auto) 0.0 Gran # 6.81 H Lymph # 0.2 L [place] # 1.2 H Eos # 0.0 Baso # 0.00 Neutrophils % (Manual) Band Neutrophils % Lymphocytes % (Manual) Monocytes % (Manual) Platelet Evaluation Anisocytosis (manual) APTT 102.8 H* Sodium 133 Potassium 4.4 Chloride 99 Carbon Dioxide 28 Anion Gap 10 BUN 21 Creatinine 0.7 Est GFR ( Amer) > 60 Est GFR (Non-Af Amer) > 60 POC Glucose (mg/dL) Random Glucose 219 H Calcium 8.5 Phosphorus 3.0 Magnesium 2.0 Total Bilirubin 1.4 H AST 191 H ALT 66 H Alkaline Phosphatase 94 Troponin I 46.20 H* D Total Protein 6.1 Albumin 3.3 Globulin 2.8 Albumin/Globulin Ratio 1.2 Triglycerides 104 Cholesterol 163 LDL Cholesterol Direct 82 HDL Cholesterol 80 H Thyroxine (T4) T3 Uptake TSH 3rd Generation Fingerstick Blood Sugar Results: 188 Critical Care Progress Note - Nutrition Nutrition: Nutrition Category Date Time Status Liquid Diet [DIET] Diets 03/18/17 Breakfast Ordered Assessment/Plan - Assessment and Plan (Free Text) Plan: 86 F with HTN/HLD, non-IDDM, COPD/past-smoker [id number] years (quit 50 yr ago), Subtotal thyroidectomy for cancer, chronic colitis, admitted to ICU for NSTEMI. She has 1 episode of diarrhea in the setting of chronic colitis, transaminitis today, suspected 2/2 new high dose statin vs chronic condition vs vagal stimulation from ACS. New onset A-fib RVR @ 140s-150s. BP decreases from 100s to 80s. Amio IVP and cardizem IVP, x 1 each. BP improves to 115. Neuro No active issue Maintain normothermic Card Trops elevated to 6 -> 50 -> 71.6 --> 46 TWI in anteriolateral leads Chronic RBBB Questionable RUL PNA On heparin gtt, nitro gtt titrate per Sx (slow flow) Dual antiplatetes, BB, high dose statin Pulm Brovana, Pulmicort, Spiriva O2 as needed Bipap PRN GI Transaminitis improving. TB 1.4 HHD, Kosher Dietitian consult Hx of chronic colitis GI on board U/O 100. recording error vs incontinent? Cre 0.7 goal K4, Mg 2. Replete as needed Endo Glucosuria Pending A1c, TFT ISSS Goal BS 140-180 Heme Hb 12.4 ID Suspected PNA on CXR No cough, SOB, leukocytosis, PE negative Prophylasix On heparin gtt Disposition Transfer to [facility] for cardiac cath Talked to Dr. Casillas at 12:37pm. Pediatrician/Medical Doctor cleared for transfer. Consult Pulm = Seun Card = Sonja GI = Shilpa s/r/d/w Dr. Alan Hoffmann - Date & Time Date: 03/18/17 Time: 07:44 <Shun QUICK,Bonny H - Last Filed: 03/18/17 15:05> CCU Objective - Vital Signs / Intake & Output Vital Signs (Last 4 hours): Vital Signs Temp Pulse Resp BP Pulse Ox 03/18/17 12:32 126 H 25 H 113/67 100 03/18/17 12:30 142 H 24 90/59 L 99 03/18/17 12:28 130 H 16 92/57 L 87 L 03/18/17 12:15 121 H 44 H 110/58 L 100 03/18/17 12:13 97.3 F L 03/18/17 12:00 127 H 13 113/66 96 03/18/17 11:59 140 H 104/81 03/18/17 11:56 134 H 38 H 104/81 95 03/18/17 11:45 125 H 24 98/65 L 96 03/18/17 11:44 129 H 31 H 97/55 L 99 03/18/17 11:37 123 H 25 H 105/56 L 84 L 03/18/17 11:30 129 H 41 H 121/56 L 99 03/18/17 11:23 138 H 10 L 108/60 99 03/18/17 11:13 146 H 33 H 105/75 100 Intake and Output (Last 8hrs): Intake & Output 03/18/17 03/18/17 03/18/17 06:59 14:59 22:59 Intake Total 420 100 Output Total 100 Balance 320 100 Intake: IV 270 100 Right Forearm 120 Oral 150 Output: Urine 100 Urine, Voided 100 Other: Voiding Method Bedside Commode - Patient Studies Lab Studies: Microbiology Studies 03/16/17 18:45 MRSA Culture (Admit) - Final Naris MRSA NOT DETECTED Lab Studies 03/18/17 03/18/17 03/18/17 Range/Units 11:28 08:30 08:05 WBC (4.5-11.0) 10^3/ul RBC (3.5-6.1) 10^6/uL Hgb (12.0-16.0) gm/dL Hct (36.0-48.0) % MCV (80.0-105.0) fL MCH (25.0-35.0) pg MCHC (31.0-37.0) g/dl RDW (11.5-14.5) % Plt Count (120.0-450.0) 10^3/uL MPV (7.0-11.0) fl Gran % (50.0-68.0) % Lymph % (Auto) (22.0-35.0) % [place] % (Auto) (1.0-6.0) % Eos % (Auto) (1.5-5.0) % Baso % (Auto) (0.0-3.0) % Gran # (1.4-6.5) Lymph # (1.2-3.4) [place] # (0.1-0.6) Eos # (0.0-0.7) Baso # (0.0-2.0) K/mm3 APTT (23.7-30.8) Seconds Sodium (132-148) mmol/L Potassium (3.6-5.0) mmol/L Chloride (98-107) mmol/L Carbon Dioxide (21-33) mmol/L Anion Gap (10-20) BUN (7-21) mg/dL Creatinine (0.5-1.4) mg/dL Est GFR ( Amer) Est GFR (Non-Af Amer) POC Glucose (mg/dL) 276 H 228 H (65-110) mg/dL Random Glucose (70-110) mg/dL Hemoglobin A1c (4.2-6.5) % Calcium (8.4-10.5) mg/dL Phosphorus (2.5-4.5) mg/dL Magnesium (1.7-2.2) mg/dL Total Bilirubin (0.2-1.3) mg/dL AST (15-39) U/L ALT (7-56) U/L Alkaline Phosphatase (38-133) U/L Troponin I ng/mL NT-Pro-B Natriuret Pep 99055 H (0-450) pg/mL Total Protein (5.8-8.3) g/dL Albumin (3.0-4.8) g/dL Globulin gm/dL Albumin/Globulin Ratio (1.1-1.8) Triglycerides (35-160) mg/dL Cholesterol (130-200) mg/dL LDL Cholesterol Direct (0-129) mg/dL HDL Cholesterol (29-60) mg/dL 03/18/17 03/18/17 03/18/17 Range/Units 06:00 06:00 06:00 WBC (4.5-11.0) 10^3/ul RBC (3.5-6.1) 10^6/uL Hgb (12.0-16.0) gm/dL Hct (36.0-48.0) % MCV (80.0-105.0) fL MCH (25.0-35.0) pg MCHC (31.0-37.0) g/dl RDW (11.5-14.5) % Plt Count (120.0-450.0) 10^3/uL MPV (7.0-11.0) fl Gran % (50.0-68.0) % Lymph % (Auto) (22.0-35.0) % [place] % (Auto) (1.0-6.0) % Eos % (Auto) (1.5-5.0) % Baso % (Auto) (0.0-3.0) % Gran # (1.4-6.5) Lymph # (1.2-3.4) [place] # (0.1-0.6) Eos # (0.0-0.7) Baso # (0.0-2.0) K/mm3 APTT 77.3 H* (23.7-30.8) Seconds Sodium 133 (132-148) mmol/L Potassium 4.4 (3.6-5.0) mmol/L Chloride 99 (98-107) mmol/L Carbon Dioxide 28 (21-33) mmol/L Anion Gap 10 (10-20) BUN 21 (7-21) mg/dL Creatinine 0.7 (0.5-1.4) mg/dL Est GFR ( Amer) > 60 Est GFR (Non-Af Amer) > 60 POC Glucose (mg/dL) (65-110) mg/dL Random Glucose 219 H (70-110) mg/dL Hemoglobin A1c 7.6 H (4.2-6.5) % Calcium 8.5 (8.4-10.5) mg/dL Phosphorus 3.0 (2.5-4.5) mg/dL Magnesium 2.0 (1.7-2.2) mg/dL Total Bilirubin 1.4 H (0.2-1.3) mg/dL AST 191 H (15-39) U/L ALT 66 H (7-56) U/L Alkaline Phosphatase 94 (38-133) U/L Troponin I 46.20 H* D ng/mL NT-Pro-B Natriuret Pep (0-450) pg/mL Total Protein 6.1 (5.8-8.3) g/dL Albumin 3.3 (3.0-4.8) g/dL Globulin 2.8 gm/dL Albumin/Globulin Ratio 1.2 (1.1-1.8) Triglycerides 104 (35-160) mg/dL Cholesterol 163 (130-200) mg/dL LDL Cholesterol Direct 82 (0-129) mg/dL HDL Cholesterol 80 H (29-60) mg/dL 03/18/17 03/17/17 03/17/17 Range/Units 06:00 22:43 21:44 WBC 8.2 D (4.5-11.0) 10^3/ul RBC 4.99 (3.5-6.1) 10^6/uL Hgb 13.1 (12.0-16.0) gm/dL Hct 40.6 (36.0-48.0) % MCV 81.4 (80.0-105.0) fL MCH 26.3 (25.0-35.0) pg MCHC 32.3 (31.0-37.0) g/dl RDW 15.5 H (11.5-14.5) % Plt Count 245 (120.0-450.0) 10^3/uL MPV 11.1 H (7.0-11.0) fl Gran % 82.6 H (50.0-68.0) % Lymph % (Auto) 2.7 L (22.0-35.0) % [place] % (Auto) 14.7 H (1.0-6.0) % Eos % (Auto) 0.0 L (1.5-5.0) % Baso % (Auto) 0.0 (0.0-3.0) % Gran # 6.81 H (1.4-6.5) Lymph # 0.2 L (1.2-3.4) [place] # 1.2 H (0.1-0.6) Eos # 0.0 (0.0-0.7) Baso # 0.00 (0.0-2.0) K/mm3 APTT 102.8 H* (23.7-30.8) Seconds Sodium (132-148) mmol/L Potassium (3.6-5.0) mmol/L Chloride (98-107) mmol/L Carbon Dioxide (21-33) mmol/L Anion Gap (10-20) BUN (7-21) mg/dL Creatinine (0.5-1.4) mg/dL Est GFR ( Amer) Est GFR (Non-Af Amer) POC Glucose (mg/dL) 188 H (65-110) mg/dL Random Glucose (70-110) mg/dL Hemoglobin A1c (4.2-6.5) % Calcium (8.4-10.5) mg/dL Phosphorus (2.5-4.5) mg/dL Magnesium (1.7-2.2) mg/dL Total Bilirubin (0.2-1.3) mg/dL AST (15-39) U/L ALT (7-56) U/L Alkaline Phosphatase (38-133) U/L Troponin I ng/mL NT-Pro-B Natriuret Pep (0-450) pg/mL Total Protein (5.8-8.3) g/dL Albumin (3.0-4.8) g/dL Globulin gm/dL Albumin/Globulin Ratio (1.1-1.8) Triglycerides (35-160) mg/dL Cholesterol (130-200) mg/dL LDL Cholesterol Direct (0-129) mg/dL HDL Cholesterol (29-60) mg/dL 03/17/17 03/17/17 03/17/17 Range/Units 16:41 16:22 11:27 WBC (4.5-11.0) 10^3/ul RBC (3.5-6.1) 10^6/uL Hgb (12.0-16.0) gm/dL Hct (36.0-48.0) % MCV (80.0-105.0) fL MCH (25.0-35.0) pg MCHC (31.0-37.0) g/dl RDW (11.5-14.5) % Plt Count (120.0-450.0) 10^3/uL MPV (7.0-11.0) fl Gran % (50.0-68.0) % Lymph % (Auto) (22.0-35.0) % [place] % (Auto) (1.0-6.0) % Eos % (Auto) (1.5-5.0) % Baso % (Auto) (0.0-3.0) % Gran # (1.4-6.5) Lymph # (1.2-3.4) [place] # (0.1-0.6) Eos # (0.0-0.7) Baso # (0.0-2.0) K/mm3 APTT 75.3 H* (23.7-30.8) Seconds Sodium (132-148) mmol/L Potassium (3.6-5.0) mmol/L Chloride (98-107) mmol/L Carbon Dioxide (21-33) mmol/L Anion Gap (10-20) BUN (7-21) mg/dL Creatinine (0.5-1.4) mg/dL Est GFR ( Amer) Est GFR (Non-Af Amer) POC Glucose (mg/dL) 220 H 271 H (65-110) mg/dL Random Glucose (70-110) mg/dL Hemoglobin A1c (4.2-6.5) % Calcium (8.4-10.5) mg/dL Phosphorus (2.5-4.5) mg/dL Magnesium (1.7-2.2) mg/dL Total Bilirubin (0.2-1.3) mg/dL AST (15-39) U/L ALT (7-56) U/L Alkaline Phosphatase (38-133) U/L Troponin I ng/mL NT-Pro-B Natriuret Pep (0-450) pg/mL Total Protein (5.8-8.3) g/dL Albumin (3.0-4.8) g/dL Globulin gm/dL Albumin/Globulin Ratio (1.1-1.8) Triglycerides (35-160) mg/dL Cholesterol (130-200) mg/dL LDL Cholesterol Direct (0-129) mg/dL HDL Cholesterol (29-60) mg/dL Laboratory Results - last 24 hr 03/17/17 03/17/17 03/17/17 11:27 16:22 16:41 WBC RBC Hgb Hct MCV MCH MCHC RDW Plt Count MPV Gran % Lymph % (Auto) [place] % (Auto) Eos % (Auto) Baso % (Auto) Gran # Lymph # [place] # Eos # Baso # APTT 75.3 H* Sodium Potassium Chloride Carbon Dioxide Anion Gap BUN Creatinine Est GFR ( Amer) Est GFR (Non-Af Amer) POC Glucose (mg/dL) 271 H 220 H Random Glucose Hemoglobin A1c Calcium Phosphorus Magnesium Total Bilirubin AST ALT Alkaline Phosphatase Troponin I NT-Pro-B Natriuret Pep Total Protein Albumin Globulin Albumin/Globulin Ratio Triglycerides Cholesterol LDL Cholesterol Direct HDL Cholesterol 03/17/17 03/17/17 03/18/17 21:44 22:43 06:00 WBC 8.2 D RBC 4.99 Hgb 13.1 Hct 40.6 MCV 81.4 MCH 26.3 MCHC 32.3 RDW 15.5 H Plt Count 245 MPV 11.1 H Gran % 82.6 H Lymph % (Auto) 2.7 L [place] % (Auto) 14.7 H Eos % (Auto) 0.0 L Baso % (Auto) 0.0 Gran # 6.81 H Lymph # 0.2 L [place] # 1.2 H Eos # 0.0 Baso # 0.00 APTT 102.8 H* Sodium Potassium Chloride Carbon Dioxide Anion Gap BUN Creatinine Est GFR ( Amer) Est GFR (Non-Af Amer) POC Glucose (mg/dL) 188 H Random Glucose Hemoglobin A1c Calcium Phosphorus Magnesium Total Bilirubin AST ALT Alkaline Phosphatase Troponin I NT-Pro-B Natriuret Pep Total Protein Albumin Globulin Albumin/Globulin Ratio Triglycerides Cholesterol LDL Cholesterol Direct HDL Cholesterol 03/18/17 03/18/17 03/18/17 06:00 06:00 06:00 WBC RBC Hgb Hct MCV MCH MCHC RDW Plt Count MPV Gran % Lymph % (Auto) [place] % (Auto) Eos % (Auto) Baso % (Auto) Gran # Lymph # [place] # Eos # Baso # APTT 77.3 H* Sodium 133 Potassium 4.4 Chloride 99 Carbon Dioxide 28 Anion Gap 10 BUN 21 Creatinine 0.7 Est GFR ( Amer) > 60 Est GFR (Non-Af Amer) > 60 POC Glucose (mg/dL) Random Glucose 219 H Hemoglobin A1c 7.6 H Calcium 8.5 Phosphorus 3.0 Magnesium 2.0 Total Bilirubin 1.4 H AST 191 H ALT 66 H Alkaline Phosphatase 94 Troponin I 46.20 H* D NT-Pro-B Natriuret Pep Total Protein 6.1 Albumin 3.3 Globulin 2.8 Albumin/Globulin Ratio 1.2 Triglycerides 104 Cholesterol 163 LDL Cholesterol Direct 82 HDL Cholesterol 80 H 03/18/17 03/18/17 03/18/17 08:05 08:30 11:28 WBC RBC Hgb Hct MCV MCH MCHC RDW Plt Count MPV Gran % Lymph % (Auto) [place] % (Auto) Eos % (Auto) Baso % (Auto) Gran # Lymph # [place] # Eos # Baso # APTT Sodium Potassium Chloride Carbon Dioxide Anion Gap BUN Creatinine Est GFR ( Amer) Est GFR (Non-Af Amer) POC Glucose (mg/dL) 228 H 276 H Random Glucose Hemoglobin A1c Calcium Phosphorus Magnesium Total Bilirubin AST ALT Alkaline Phosphatase Troponin I NT-Pro-B Natriuret Pep 91102 H Total Protein Albumin Globulin Albumin/Globulin Ratio Triglycerides Cholesterol LDL Cholesterol Direct HDL Cholesterol EKG/Cardiology Studies: Cardiology / EKG Studies 03/18/17 11:00 EKG [ELECTROCARDIOGRAM] Routine Comment: Reason For Exam: new a-fib RVR Critical Care Progress Note - Nutrition Nutrition: Nutrition Category Date Time Status Liquid Diet [DIET] Diets 03/18/17 Breakfast Ordered Attending/Attestation - Attestation I have personally seen and examined this patient.: Yes I have fully participated in the care of the patient.: Yes I have reviewed all pertinent clinical information: Yes Notes (Text): 03/18/17 15:04 86 y/o F w/ NSTEMi high VIKTORIYA score Per cardiology , awaiting transfer to [facility] for PTCA. On heparin ggt, asprin, plavix, statin. A FIB new onset. Given Cardizem and Amiodarone bolus. Mild improvement HR 120- 130. Cardiology and PCP aware of the situation. Awaiting transfer. cc time 45 min
--- NOTE | 2017-03-18 07:50 | CARD ---
APPROVED REPORT EXAM: Two-dimensional and M-mode echocardiogram with Doppler and color Doppler. Other Information Quality : FairRhythm : INDICATION Chest Pain , acute DC. 2D DIMENSIONS Left Atrium (2D)4.0 (1.6-4.0cm)IVSd1.2 (0.7-1.1cm) LVDd4.2 (3.9-5.9cm)PWd1.0 (0.7-1.1cm) M-Mode DIMENSIONS Aortic Root3.10 (2.2-3.7cm)Aortic Cusp Exc.1.50 (1.5-2.0cm) Aortic Valve AoV Peak Ziogsokw99.7cm/s Mitral Valve E/A ratio0.0 TDI E/Lateral E'0.0E/Medial E'0.0 Tricuspid Valve TR Peak Pczxbmdn866xl/sRAP [id number] Peak Gr.44mmHg [id number] LEFT VENTRICLE The left ventricle is normal size. There is normal left ventricular wall thickness. Left ventricle systolic function is moderately to severely impaired. The Ejection Fraction is 30-35%. The rounded apex is akinetic. The septum is severely hypokinetic. RIGHT VENTRICLE The right ventricle is normal size. ATRIA The left atrium size is normal. The right atrium size is normal. The interatrial septum is intact with no evidence for an atrial septal defect. AORTIC VALVE The aortic valve is normal in structure. MITRAL VALVE The mitral valve is moderately thickened but opens well. TRICUSPID VALVE The tricuspid valve is normal in structure. There is moderate tricuspid regurgitation. There is moderate-severe pulmonary hypertension. PULMONIC VALVE The pulmonic valve is not well visualized. GREAT VESSELS The aortic root is normal in size. PERICARDIAL EFFUSION There is no pericardial effusion. <Conclusion> Limited study done in CCU. The left ventricle is normal size. There is normal left ventricular wall thickness. Left ventricle systolic function is moderately to severely impaired. The Ejection Fraction is 30-35%. The rounded apex is akinetic. The septum is severely hypokinetic. There is moderate tricuspid regurgitation. There is moderate-severe pulmonary hypertension.
--- NOTE | 2017-03-18 07:58 | CP.PCM.PN ---
Subjective - Date & Time of Evaluation Date of Evaluation: 03/18/17 Time of Evaluation: 07:00 - Subjective Subjective: Stable in CCU. No chest, abd. or shoulder pain. I spoke with Dr. Casillas and Dr. Rivera. Family wants cath at [facility] > this afternoon V/S noted. RSR/S. Tachy. PE: Lungs: clear Cor.: S1S2 Abd.: soft Ext.: no edema Neuro.: alert I/O N/A! Labs noted. Trop 46.2 today ECG's c/w ALMI with chronic RBBB CXR 03/17 noted. No CHF. RUL infiltrate CTA noted: No aortic dissection Echo noted. See report. Study c/w septal and apical infarct. Mod TR and Mod/Sev PH. Objective - Vital Signs/Intake and Output Vital Signs (last 24 hours): Temp Pulse Resp BP Pulse Ox 98.6 F 93 H 26 H 136/70 98 03/17/17 20:00 03/18/17 06:00 03/18/17 06:00 03/18/17 06:00 03/18/17 06:00 Intake and Output: 03/18/17 03/18/17 06:59 18:59 Intake Total 420 100 Output Total 100 Balance 320 100 - Medications Medications: Current Medications Arformoterol Tartrate (Brovana) 15 mcg IH [id number] [facility] Last Admin: 03/18/17 07:37 Dose: 15 mcg Aspirin (Ecotrin) 81 mg PO DAILY [facility] Last Admin: 03/17/17 12:18 Dose: 81 mg Atorvastatin Calcium (Lipitor) 80 mg PO DIN [facility] Last Admin: 03/17/17 17:54 Dose: 80 mg Budesonide (Pulmicort Respules) 0.5 mg IH Q12H [facility] Last Admin: 03/18/17 07:37 Dose: 0.5 mg Clopidogrel Bisulfate (Plavix) 75 mg PO DAILY [facility] Last Admin: 03/17/17 12:18 Dose: 75 mg Nitroglycerin/Dextrose (Nitroglycerin 50 Mg/250 Ml D5w) 50 mg in 250 mls @ 0.9 mls/hr IV .Q24H PRN; Protocol; 3 MCG/MIN PRN Reason: Pain, moderate (4-7) Last Titration: 03/17/17 14:03 Dose: 6.66 mcg/min, 2 mls/hr Heparin Sodium/Sodium Chloride (Heparin 19401 Units/250ml 1/2 Normal Saline) 25 ,000 units in 250 mls @ 12.8 mls/hr IV .[id number] PRN; Protocol; 16 UNITS/KG/HR PRN Reason: ADJUST RATE PER PROTOCOL Last Admin: 03/18/17 07:15 Dose: 13 units/kg/hr, 10.4 mls/hr Insulin Human Lispro (Humalog Low) 0 units SC ACHS [facility] PRN Reason: Protocol Last Admin: 03/17/17 22:05 Dose: Not Given Levothyroxine Sodium (Synthroid) 125 mcg PO 0600 [facility] Last Admin: 03/18/17 07:21 Dose: 125 mcg Metoprolol Tartrate (Lopressor) 25 mg PO BRKDIN [facility] Last Admin: 03/17/17 17:54 Dose: 25 mg Ondansetron HCl (Zofran Inj) 4 mg IVP Q6H PRN PRN Reason: Nausea/Vomiting Last Admin: 03/16/17 23:03 Dose: 4 mg Pantoprazole Sodium (Protonix Ec Tab) 40 mg PO 0600 [facility] Last Admin: 03/18/17 05:42 Dose: 40 mg Tiotropium Herrick (Spiriva) 18 mcg IH DAILY [facility] Last Admin: 03/17/17 12:18 Dose: 18 mcg - Labs Labs: 03/18/17 06:00 03/18/17 06:00 PT 10.6 Seconds (9.9-11.8) 03/16/17 08:00 INR 0.98 (0.93-1.08) 03/16/17 08:00 APTT 77.3 Seconds (23.7-30.8) H* 03/18/17 06:00 Assessment and Plan - Assessment and Plan (Free Text) Assessment: Abdominal and shoulder pain with nausea and diarrhea Acute septal and apical AR RBBB Diabetes Subtotal thyroidectomy S /P hysterectomy RUL Infiltrate Plan: ASA, Plavix, IV heparin, metoprolol, IV NTG AB as per Dr. Rivera Plan cardiac cath this afternoon at [facility] Monitor I/O, labs, stool for OB, sats, etc. Additional recs following cath.
[2017-03-18] MEDS: Insulin Lispro (humaLOG) LOW Coverage SC SCH ×2 (08:09→12:32)
[2017-03-18] MEDS: Tiotropium 18 mcg Cap For Inhalation IH SCH (09:55)
--- NOTE | 2017-03-18 10:10 | PQF CHF ---
This form is a permanent part of the medical record Dr. Rivera, Patient was admitted with NSTEMI. CXR on 03/17 shows developing RUL pneumonia. BNP elevated. Pulmonary customer service and sales consultant notes in his progress notes to treat for CHF, that he doubts pneumonia. franchise consultant notes in his progress notes that there is no CHF but a RUL infiltrate. Could you clarify if either or both is present or ruled out, undetermined? Clarification of your documentation is requested to better reflect the severity of illness and intensity of treatment of your patient. Indicators present [] Diagnosis of CHF and/or history of CHF [] BNP > 200 [] Imaging Finding of Pulmonary Edema /Pleural Effusions [] Fluid/Volume Overload [] Pitting edema [] Ejection Fraction < 40% (Indicative of Systolic Heart Failure) [] Ejection Fraction > 40% (Indicative of Diastolic Heart Failure) [] Dyspnea / Orthopenea / Paroxysmal Nocturnal Dyspnea [] Other: Location in the medical record that reflects the above clinical findings: [] Treatment Provided: [] PHYSICIAN'S RESPONSEPlease refer this query to the respective consultants. Based on your medical judgment of the clinical indicators outlined above, are you treating this patient for a known or suspected: [] Acute CHF [] Systolic [] Diastolic [] Combined [] Chronic CHF [] Systolic [] Diastolic [] Combined [] Acute on Chronic CHF []Systolic [] Diastolic [] Combined [] CHF due hypertension [] Acute systolic []Chronic systolic [] Acute/ chronic systolic [] Other, please indicate: [] [] If Unable to Determine, please check the box, sign and date. Present On Admission (POA) Indicator: [] Present at the time of admission [] Not present at the time of admission [] Clinically Undetermined In responding to this query, please exercise your independent professional judgment. The fact that a question is asked does not imply that any particular answer is desired or expected. Thank you for your clarification on this documentation. If you have any questions please call:[ ] * Thank you, [ ]Merissa Wiseman [facility] #[id number] resolution manager YARIEL
--- NOTE | 2017-03-18 10:35 | RAD ---
HISTORY: Rule out infiltrate COMPARISON: 03/17/2017 FINDINGS: LUNGS: Increasing extensive right-sided pulmonary infiltrate common now most prominent at the right base but also right perihilar and right upper lobe. No left-sided infiltrate. PLEURA: There very small right pleural effusion. No evidence of left pleural effusion. No pneumothorax. CARDIOVASCULAR: Normal. OSSEOUS STRUCTURES: No significant abnormalities. VISUALIZED UPPER ABDOMEN: Normal. OTHER FINDINGS: None. IMPRESSION: Increasing right-sided pulmonary infiltrate, multifocal. Small right pleural effusion.
--- NOTE | 2017-03-18 10:46 | PN ---
DATE: 03/18/2017 The case has been discussed with Dr. Doug Diaz as well as Dr. Patricia Rivera earlier today. I have revi ewed the patient's chart, discussed the case with the 2 previously mentioned physicians and discussed the patient's status with her and examined her carefully. She is feeling a little bit better. She is resting more comfortably. She is planned to go to [facility] later today f or her cardiac catheterization. She remains on IV Tridil. She denies having chest pain at this [facility]. She has no respiratory distress. No cough, expectoration or chest pain. PHYSICAL EXAMINATION: VITAL SIGNS: Stable with a blood pressure of 115/70, O2 saturation is 97% on supplemental oxygen, re spiratory rate 16. NECK: Supple, no JVD, no lymphadenopathy. CHEST: Minimal rales. No rhonchi, or wheezes noted. HEART: S1, S2. No gallop auscultated. ABDOMEN: Soft. Bowel sounds normoactive without mass, guarding, rebound or organomegaly. EXTREMITIES: Reveal no clubbing, cyanosis or edema. There is no Homans sign. NEUROLOGIC: Awake, alert, oriented, no focal findings. The patient was supposed to have an x-ray this morning, but this was not able to be found. I have di scussed this with the attending as well as the department of radiology. We will look at it in an shyanne r or so and perhaps it will hit the computer so that I can review the films and look at the report. DIAGNOSES: At this time include: 1. Acute myocardial infarction. 2. Chronic obstructive pulmonary disease. 3. Non-insulin dependent diabetes mellitus. 4. Hypothyroidism. 5. Possible bronchitis with pulmonary infection. PLAN: Dr. Diaz has discussed with Dr. Paulson and Dr. Rivera the need for antibiotic therapy, which has been instituted. The patient continues on inhaled bronchodilator and corticosteroids as well as her heparin and Tridil. She is on coverage with Humalog. All other medications remain the same. We will need to further evaluate this patient when she returns from [facility] a nd decide if any further intervention. I will be anxious to look at today's film once it is availabl e for my review, but will evaluate as soon as possible. Thank you for the opportunity to see this edwin patient. Serafin Bynum MD cc: [id number] TT: 03/18/2017 10:45:57 Confirmation # [id number] Dictation # [id number]
[2017-03-18] MEDS ORDERED: Amiodarone 150 mg/D5W 100 ml 150 MG/100 ML BAG IVPB ONE (11:06)
[2017-03-18] MEDS ORDERED: Aspirin 325 mg EC Tablets PO ONE (11:28)
--- NOTE | 2017-03-18 12:17 | RAD ---
HISTORY: Irregular rhythm COMPARISON: 03/18/2017 at 8:39 a.m. FINDINGS: LUNGS: Extensive right-sided pulmonary infiltrate unchanged from earlier examination of the same date. Predominantly at right base but also in right upper lobe. Questionable ill-defined left upper lobe opacity. PLEURA: Possible small right pleural effusion. Left costophrenic angle is obscured by patient's hand. No pneumothorax. CARDIOVASCULAR: Congestive change noted. Normal heart size. OSSEOUS STRUCTURES: No significant abnormalities. VISUALIZED UPPER ABDOMEN: Normal. OTHER FINDINGS: None. IMPRESSION: Extensive right-sided pulmonary infiltrate with possible left upper lobe opacity. Possible small right pleural effusion. Congestive change noted. Rule out pulmonary edema.
[2017-03-18] MEDS ORDERED: Insulin Lispro (humaLOG) LOW Coverage SC ONE (12:32)
[2017-03-18 13:28] VITALS: BP 113/67; PULSE 126; RESP 25; O2SAT 100
[2017-03-18 13:32] VITALS: TEMP 97.3
--- NOTE | 2017-03-18 14:27 | PN ---
DATE: 03/18/2017 Seen and examined at the bedside earlier today. The patient is going to be transferred to [facility] today for a cardiac catheterization. The patient denies any nausea now. It is better. No shortness of breath or complaints of chest pain. No reports of any diarrhea. Tolerating little liqu id. No reports of any bleeding. VITAL SIGNS: Temperature 98.3, blood pressure is 115/70, pulse 100, respirations 16, 100% room air. LABORATORIES: WBC is 8.2, H and H is 13.1, hematocrit is 40.6, platelets of 245. Her PTT is 77.3. She is on heparin drip per protocol. Sodium 133, K 4.4, BUN 21, creatinine 0.7. Troponin is down to 46.2. BNP is 15,700. LFTs: Total bilirubin 1.4, AST 191, ALT 66, alk phos is 94. Chest x-ray was done. It was a repeat from this morning and congestive change noted, normal heart si ze, possible small right pleural effusion, no pneumothorax, extensive right-sided pulmonary infiltrat e with possible left upper lobe opacity, rule out pulmonary edema. PHYSICAL EXAMINATION: HEENT: Sclera is anicteric. NECK: Supple. CARDIAC: S1, S2. LUNG SOUNDS: With decreased breath sounds, but positive air entry. ABDOMEN: With bowel sounds, soft, not distended, nontender on palpation. ASSESSMENT: An 86-year-old female with history of hypertension, hyperlipidemia, non-insulin dependen t diabetes, chronic obstructive pulmonary disease with non-ST elevation myocardial infarction. The p atient had episode of diarrhea in setting of chronic colitis, no further episodes of diarrhea. The p atient is noted to have transaminitis, may be secondary to hepatic congestion or consider medication induced. New onset atrial fibrillation with rapid ventricular response. Other comorbidities are hyp othyroidism, dyslipidemia. PLAN: Continue current treatment as per ICU medical team. The patient is awaiting to get transferre d to [facility] for cardiac catheterization. As per cardiology. The patient is on amiodaron e drip, getting IV antibiotics, is on Plavix, Cardizem, heparin drip and on liquid diet. The patient was seen and case discussed with Dr. Massey. Rosa Isela MEYER cc: [id number] TT: 03/18/2017 14:26:21 Confirmation # [id number] Dictation # [id number]
--- NOTE | 2017-03-18 17:52 | CARD ---
APPROVED REPORT EKG Measurement Heart [id number] <Conclusion> Atrial fibrillation with rapid ventricular response with premature ventricular or aberrantly conducted complexes Right bundle branch block Left posterior fascicular block Bifascicular block Inferior infarct, age undetermined Anteroseptal infarct, age undetermined Lateral ST segment elevation, Consider acute injury When ICU was called , patient has been already transferred for Cath Abnormal ECG
== END 2017-03-18 13:29 | disposition short-term general hospital (02) | DRG 282 ==
LOC: ED 07:36 → OBSVTOIN 10:17 → ERH 10:17 → CCU 17:35
PROVIDERS: ADMIT Internal Medicine; ATTEND Internal Medicine
PROC: 5A09357 Assistance with Respiratory Ventilation, Less than 24 Consecutive Hours, Continuous Positive Airway Pressure (ICD-10-PCS; principal; 2017-03-16)
PROC: 3E0F7GC Introduction of Other Therapeutic Substance into Respiratory Tract, Via Natural or Artificial Opening (ICD-10-PCS; 2017-03-16)
DX: I21.4 Non-ST elevation (NSTEMI) myocardial infarction (principal); I10 Essential (primary) hypertension; J44.9 Chronic obstructive pulmonary disease, unspecified; I48.91 Unspecified atrial fibrillation; E11.9 Type 2 diabetes mellitus without complications; J32.9 Chronic sinusitis, unspecified; E89.0 Postprocedural hypothyroidism; E78.5 Hyperlipidemia, unspecified; I45.10 Unspecified right bundle-branch block; R09.02 Hypoxemia; E78.00 Pure hypercholesterolemia, unspecified; Z85.850 Personal history of malignant neoplasm of thyroid; Z79.84 Long term (current) use of oral hypoglycemic drugs; Z90.710 Acquired absence of both cervix and uterus; Z87.891 Personal history of nicotine dependence; Z88.0 Allergy status to penicillin

== ENCOUNTER 2017-03-24 19:53 | Inpatient (IN) | payer MEDICARE ==
[2017-03-24] MEDS ORDERED: TDAP Vaccine 0.5 mL Syr IM ONE (20:01)
--- NOTE | 2017-03-24 20:09 | ED PDOC ---
Arrival/HPI - General Chief Complaint: Trauma Time Seen by Provider: 03/24/17 19:57 Historian: Patient, Family - History of Present Illness Narrative History of Present Illness (Text): 03/24/17 20:07 Patient is an 86 year old female recently discharged 1 week ago after stent to LAD, presenting after fall at home. PMD Dr. Rivera was at the patient's home when she lost her balance on the stairs and fell 3 steps backwards hitting the back of her head. No loss of consciousness. Currently patient is complaining of headache. Patient reports she is on Aspirin and Plavix. Patient also likely had heparin or other anticoagulants during recent hospitalization for stent (at [facility]). Last tetanus unknown. Denies alcohol or drug use. Time/Duration: Prior to Arrival Symptom Onset: Sudden Symptom Course: Unchanged Context: Home Past Medical History - Provider Review Nursing Documentation Reviewed: Yes - Infectious Disease Hx of Infectious Diseases: None - Pulmonary Other/Comment: ble variscosities - HEENT Hx HEENT Disorder: Yes ("runny nose" at times) - Endocrine/Metabolic Other/Comment: Diabetes with no medication - Musculoskeletal/Rheumatological Hx Falls: Yes - Psychiatric Hx Substance Use: No - Surgical History Hx Hysterectomy: Yes Other/Comment: thyroidectomy - Anesthesia Hx Anesthesia: Yes Hx Anesthesia Reactions: No Hx Malignant Hyperthermia: No Family/Social History - Physician Review Nursing Documentation Reviewed: Yes Family/Social History: Unknown Family HX Smoking Status: Never Smoked Hx Alcohol Use: No Hx Substance Use: No Allergies/Home Meds Allergies/Adverse Reactions: Allergies pcn Allergy (Uncoded 03/16/17 07:51) ITCHING Home Medications: Home Meds Medication Instructions Recorded Confirmed Amiodarone HCl [Pacerone] 200 mg PO DAILY 03/24/17 03/24/17 Aspirin [Glynn Aspirin] 81 mg PO DAILY 03/24/17 03/24/17 Atorvastatin [Lipitor] 80 mg PO DAILY 03/24/17 03/24/17 Clopidogrel [Plavix] 75 mg PO DAILY 03/24/17 03/24/17 Levothyroxine [Synthroid] 125 mcg PO DAILY 03/24/17 03/24/17 Lisinopril [Zestril] 2.5 mg PO DAILY 03/24/17 03/24/17 Review of Systems - Review of Systems Constitutional: absent: Fatigue, Fevers Eyes: absent: Vision Changes ENT: absent: Hearing Changes Respiratory: absent: SOB, Cough, Wheezing Cardiovascular: absent: Chest Pain, Palpitations Gastrointestinal: absent: Abdominal Pain, Nausea, Vomiting Genitourinary Female: absent: Dysuria, Urine Output Changes Musculoskeletal: absent: Back Pain, Neck Pain Skin: absent: Rash Neurological: Headache. absent: Dizziness Endocrine: absent: Diaphoresis Physical Exam Vital Signs Temp Pulse Resp BP Pulse Ox 03/24/17 20:05 97.7 F 65 14 107/48 L 99 Temperature: Afebrile Blood Pressure: Normal Pulse: Regular Respiratory Rate: Normal Appearance: Positive for: Well-Appearing Pain Distress: Mild Mental Status: Positive for: Alert and Oriented X 3 - Systems Exam Head: Present: Normocephalic, Laceration (Posterior scalp laceration 1 cm with no active bleeding, large hematoma) Pupils: Present: PERRL Extroacular Muscles: Present: EOMI Conjunctiva: Present: Normal Mouth: Present: Moist Mucous Membranes Nose (External): Present: Atraumatic Neck: Present: Normal Range of Motion. No: MIDLINE TENDERNESS (No c-spine midline tenderness) Respiratory/Chest: Present: Clear to Auscultation, Good Air Exchange. No: Respiratory Distress, Accessory Muscle Use, Tender to Palpation (No chest wall tenderness) Cardiovascular: Present: Regular Rate and Rhythm, Normal S1, S2. No: Murmurs Abdomen: Present: Normal Bowel Sounds. No: Tenderness, Distention, Peritoneal Signs Back: Present: Normal Inspection. No: Midline Tenderness Upper Extremity: Present: Normal Inspection, Normal ROM. No: Cyanosis, Edema Lower Extremity: Present: Normal Inspection, Normal ROM. No: Edema Neurological: Present: GCS=15, CN II-XII Intact, Speech Normal, Motor Func Grossly Intact, Normal Sensory Function Psychiatric: Present: Alert, Oriented x 3, Normal Insight, Normal Concentration Medical Decision Making ED Course and Treatment: 03/24/17 20:01 Patient neurologically intact on arrival. Dr. Rivera at bedside. Will obtain CT Head to evaluate for intracranial hemorrhage and update tetanus. EXAM: CT Head Without Intravenous Contrast FINDINGS: Brain: Moderate volume loss is seen in keeping with age. Moderate decrease in attenuation of the periventricular white matter likely related to small vessel ischemic change. The brain is otherwise unremarkable. Normal molina-white matter differentiation is present, without acute hemorrhage, or mass. Ventricles: Unremarkable. No ventriculomegaly. Bones/joints: Unremarkable. No acute fracture. Soft tissues: Soft tissue contusion of the posterior left occipital scalp without adjacent skull fracture. Sinuses: Unremarkable as visualized. No acute sinusitis. Mastoid air cells: Unremarkable as visualized. No mastoid effusion. IMPRESSION: Age-related atrophy and chronic white matter ischemic changes, with no evidence of an acute intracranial abnormality. Mild soft tissue contusion of the left posterior occipital scalp. Dictated and Authenticated by: Jonathon Thompson MD 03/24/2017 8:27 PM Eastern Time ([place] & [place]) 03/24/17 20:37 CT Head negative. Laceration repaired with non-absorbable stitches x 4. Dr. Rivera at bedside, requesting neurologic monitoring in ICU due to age and current anticoagulation use, with Dr. Hernandez (neurology) on consult. Spoke to Dr. Valdez and accepted by ICU. . - Lab Interpretations Lab Results: 03/24/17 20:30 03/24/17 20:30 Lab Results 03/24/17 20:30: Blood Type Pending, Antibody Screen Pending, BBK History Checked No verified bt 03/24/17 20:30: Sodium 135, Potassium 4.3, Chloride 103, Carbon Dioxide 26, Anion Gap 10, BUN 14, Creatinine 0.9, Est GFR ( Amer) > 60, Est GFR (Non- Af Amer) 60, Random Glucose 164 H, Calcium 9.2, Total Bilirubin 0.7, AST 38, ALT 52, Alkaline Phosphatase 100, Total Protein 5.8, Albumin 3.1, Globulin 2.8, Albumin/Globulin Ratio 1.1 03/24/17 20:30: PT 18.7 H, INR 1.73 H, APTT 27.5 03/24/17 20:30: WBC 9.5, RBC 3.97, Hgb 10.6 L, Hct 32.7 L, MCV 82.4, MCH 26.7, MCHC 32.4, RDW 15.9 H, Plt Count 208, MPV 11.4 H, Gran % 87.0 H, Lymph % (Auto) 5.7 L, [place] % (Auto) 5.7, Eos % (Auto) 1.4 L, Baso % (Auto) 0.2, Gran # 8.31 H, Lymph # 0.5 L, [place] # 0.5, Eos # 0.1, Baso # 0.02 - RAD Interpretation Radiology Orders: 03/24/17 19:59 HEAD W/O CONTRAST [CT] Stat - Medication Orders Current Medication Orders: Discontinued Medications Lidocaine/Epinephrine (Lidocaine 1%/Epinephrine 1:680055 30 Ml) 30 ml IJ ONCE ONE Stop: 03/24/17 20:49 Tetanus/Reduced Diphtheria/Acell Pertussis (Boostrix Vaccine Inj) 0.5 ml IM .ONCE ONE Stop: 03/24/17 20:02 Procedure: Wound Repair - Time Performed Time Performed: 21:20 - Time Out Time Out: Side verified - Consent Obtained Consent obtained: Verbal - Performed by Performed by: Attending Physician - Indications Indication(s):: Laceration - Location Location:: Scalp - Anesthetic Technique Anesthetic Technique: Local Local/Regional Anesthetic:: Lidocaine 1% - Debris Debris:: None - Irrigated Irrigated with ml of normal saline: 30 - Complexity Complexity:: Simple (one layer) (superficial) - Wound repair method Sutures:: # (4), Size (ethilon 4) - Patient tolerated procedure Patient Tolerated Procedure:: Well - Scribe Statement The provider has reviewed the documentation as recorded by the Moy Kilpatrick Provider Scribe Attestation: All medical record entries made by the Scribe were at my direction and personally dictated by me. I have reviewed the chart and agree that the record accurately reflects my personal performance of the history, physical exam, medical decision making, and the department course for this patient. I have also personally directed, reviewed, and agree with the discharge instructions and disposition. Disposition/Present on Arrival - Present on Arrival Any Indicators Present on Arrival: No History of DVT/PE: No History of Uncontrolled Diabetes: No Urinary Catheter: No History of Decub. Ulcer: No History Surgical Site Infection Following: None - Disposition Have Diagnosis and Disposition been Completed?: Yes Diagnosis: Fall, Hematoma of scalp, Current use of anticoagulant therapy Disposition: HOSPITALIZED Disposition Time: 20:46 Patient Plan: ICU Patient Problems: Current Active Problems Problem Status Onset Fall Acute Hematoma of scalp Acute Current use of anticoagulant therapy Acute Condition: GOOD
[2017-03-24 20:48] LABS: BASO # 0.02 K/mm3 (0.0-2.0); BASO % 0.2 % (0.0-3.0); EOS # 0.1 (0.0-0.7); EOS % 1.4 % (1.5-5.0); GRAN # 8.31 (1.4-6.5); HEMOGLOBIN 10.6 gm/dL (12.0-16.0); LYMPH # 0.5 (1.2-3.4); LYMPH % 5.7 % (22.0-35.0); MEAN CELL VOLUME 82.4 fL (80.0-105.0); MEAN CORPUSCULAR HEMOGLOBIN 26.7 pg (25.0-35.0); MEAN CORPUSCULAR HGB CONC 32.4 g/dl (31.0-37.0); MEAN PLATELET VOLUME 11.4 fl (7.0-11.0); MONO # 0.5 (0.1-0.6); MONO % 5.7 % (1.0-6.0); PLATELET COUNT 208 10^3/uL (120.0-450.0); RBC 3.97 10^6/uL (3.5-6.1); RED CELL DISTRIBUTION WIDTH 15.9 % (11.5-14.5); WHITE BLOOD COUNT 9.5 10^3/ul (4.5-11.0)
[2017-03-24] MEDS ORDERED: Lidocaine 1%/Epinephrine 1:100000 30 ml vial IJ ONE (20:48)
[2017-03-24] MEDS ORDERED: Lidocaine 1% w Epi 1:100,000 Inj IJ STA (20:56)
[2017-03-24 20:57] LABS: ALB/GLOB RATIO 1.1 (1.1-1.8); ALBUMIN 3.1 g/dL (3.0-4.8); ALT/SGPT 52 U/L (7-56); AST/SGOT 38 U/L (15-39); BLOOD UREA NITROGEN 14 mg/dL (7-21); CALCIUM 9.2 mg/dL (8.4-10.5); GFR AFRICAN-AMERICAN > 60; GFR NON-AFRICAN AMERICAN 60
[2017-03-24 21:00] LABS: INR 1.73 (0.93-1.08); PARTIAL THROMBOPLASTIN TIME 27.5 Seconds (23.7-30.8); PROTHROMBIN TIME 18.7 Seconds (9.9-11.8)
--- NOTE | 2017-03-24 23:35 | CP.PCM.CON ---
History of Present Illness - History of Present Illness History of Present Illness: The patient is an 86 year old woman with a history of hypothyroidism, paroxysmal atrial fibrillation, CAD (s/p LAD stent placed 1 week ago at [facility]), chronic colitis and COPD, who slipped and fell backwards while climbing stairs inside her home earlier in the evening. She ended up landing on the back of her head. Since the incident, she's had throbbing headache pain, swelling and intermittent bleeding from the occipital site of injury. She denies any associated CP, SOB, LOC, blurry vision, focal neuro deficits or altered mentation. Of note, since the placement of her LAD stent at [facility] ([facility]) about 1 week ago, she's been taking both ASA and Plavix daily. Also , while admitted at [facility], she was reportedly started on Coumadin for stroke prophylaxes given her newly diagnosed atrial fibrillation. However, after a small bloody bowel movement, it was ultimately discontinued prior to her discharge. Given this recent history of Coumadin use and current usage of dual anti-platelet therapy, there was initially a concern for acute ICH. However, the CT-head done in the ED was negative for any acute findings. Review of Systems - Review of Systems All systems: reviewed and no additional remarkable complaints except - Constitutional Constitutional: As Per HPI - EENT Eyes: As Per HPI Nose/Mouth/Throat: As Per HPI - Cardiovascular Cardiovascular: As Per HPI - Respiratory Respiratory: As Per HPI - Gastrointestinal Gastrointestinal: As Per HPI - Genitourinary Genitourinary: As Per HPI - Musculoskeletal Musculoskeletal: As Per HPI - Neurological Neurological: As Per HPI Past Patient History - Infectious Disease Hx of Infectious Diseases: None - Past Social History Smoking Status: Never Smoked - CARDIAC Hx Hypercholesterolemia: Yes - PULMONARY Other/Comment: ble variscosities - HEENT Hx HEENT Problems: Yes ("runny nose" at times) - ENDOCRINE/METABOLIC Other/Comment: Diabetes with no medication - MUSCULOSKELETAL/RHEUMATOLOGICAL Hx Falls: Yes - PSYCHIATRIC Hx Substance Use: No - SURGICAL HISTORY Hx Hysterectomy: Yes Other/Comment: thyroidectomy - ANESTHESIA Hx Anesthesia: Yes Hx Anesthesia Reactions: No Hx Malignant Hyperthermia: No Meds Allergies/Adverse Reactions: Allergies Allergy/AdvReac Type Severity Reaction Status Date / Time pcn Allergy ITCHING Uncoded 03/16/17 07:51 - Medications Medications: Current Medications Acetaminophen (Tylenol 325mg Tab) 650 mg PO Q6H PRN PRN Reason: Pain, Mild (1-3) Amiodarone HCl (Cordarone) 200 mg PO DAILY LUCINA Atorvastatin Calcium (Lipitor) 80 mg PO DAILY LUCINA Levothyroxine Sodium (Synthroid) 125 mcg PO ACB LUCINA Lisinopril (Zestril) 2.5 mg PO DAILY LUCINA Ondansetron HCl (Zofran Inj) 4 mg IVP Q6H PRN PRN Reason: Nausea/Vomiting Pantoprazole Sodium (Protonix Ec Tab) 40 mg PO 0600 LUCINA Tramadol HCl (Ultram) 50 mg PO Q6H PRN PRN Reason: Pain, severe (8-10) Physical Exam - Constitutional Additional comments: Pleasant elderly woman, in no acute distress; A&OX4 - Head Exam Additional comments: Occipital scalp contusion with associated edema, tenderness to palpation and bloody drainage. - Eye Exam Eye Exam: EOMI, Normal appearance, PERRL Pupil Exam: NORMAL ACCOMODATION, PERRL - ENT Exam ENT Exam: Mucous Membranes Moist, Normal Exam - Neck Exam Neck exam: Positive for: Normal Inspection - Respiratory Exam Respiratory Exam: Clear to Auscultation Bilateral, NORMAL BREATHING PATTERN - Cardiovascular Exam Cardiovascular Exam: REGULAR RHYTHM, +S1, +S2 - GI/Abdominal Exam GI & Abdominal Exam: Normal Bowel Sounds, Soft. absent: Tenderness - Rectal Exam Rectal Exam: Deferred - Extremities Exam Additional comments: Bilateral lower extremity, 1+ pitting edema and varicose veins - Neurological Exam Additional comments: Normal and equal handgrip bilaterally; 5/5 muscle strength in all four extremities; normal [id number] testing; Cranial nerves 2-12 grossly normal; Grossly normal vision; Results - Vital Signs Recent Vital Signs: Last Vital Signs Temp 97.7 F 03/24/17 20:05 Pulse 71 03/24/17 23:15 Resp 16 03/24/17 23:15 BP 112/47 L 03/24/17 23:15 Pulse Ox 98 03/24/17 23:15 - Labs Result Diagrams: 03/25/17 05:10 03/25/17 05:10 - Imaging and Cardiology CT scan - head Status: Report reviewed by me Assessment & Plan - Assessment and Plan (Free Text) Plan: A/P: The patient is an 86 year old woman with a history of hypothyroidism, paroxysmal atrial fibrillation, CAD (s/p recent stent placement and daily dual anti-platelet therapy), chronic colitis and COPD, who is being admitted to the ICU for hourly neuro checks and close monitoring of her recent traumatic scalp injury. 1. Occipital Scalp Contusion (s/p ground level fall): -ddx: Mechanical Fall vs Syncope vs Seizure vs CVA vs Orthostasis vs Infection -incidental mechanical fall appears to be highest on differential at this time -will check B12, TFT's, orthostatics and UA -CT-head negative for acute bleeding -repeat CT-head tomorrow at 7am to ensure there's no delayed bleeding -hourly neuro checks -keep HOB>30 degrees -fall precautions -neurology consult placed (Dr. Rosa Hernandez) -of course, will hold all anti-platelet and anti-coagulation meds -INR is 1.7 (likely due to recent, brief Coumadin use) -will recheck INR with AM labs to ensure it's normalizing -patient has no focal deficits -contusion site was sutured by ED physician -Tylenol and Ultram for pain control as needed 2. Paroxysmal Atrial Fibrillation: -as stated in HPI, pt no longer on anticoagulation -continue with home rate control meds 3. COPD: -no acute symptoms -PRN Duo-nebs -O2 via NC as needed to keep sats>92% 4. Hypothyroidism: -continue home dose of Synthroid -check TFT's with AM labs 5. CAD (s/p recent LAD stent): -hold ASA and Plavix -repeat CT-head in AM to ensure there's no delayed bleeding -otherwise, continue maintenance heart failure regimen -heart healthy (consistent carb) diet -monitor strict I/O's and daily weights -keep HOB>30 degrees 6. Chronic Colitis: -will check stool studies (including C.Diff) given pt's recent hospitalizations DVT PPx: SCD's GI PPx: Protonix
[2017-03-25 01:17] VITALS: BMI 20.6
[2017-03-25] MEDS ORDERED: Pneumococcal 23-Valent Vaccine IM ONE (01:17)
[2017-03-25 05:51] LABS: HEMOGLOBIN 10.5 gm/dL (12.0-16.0); MEAN CELL VOLUME 82.2 fL (80.0-105.0); MEAN CORPUSCULAR HEMOGLOBIN 26.4 pg (25.0-35.0); MEAN CORPUSCULAR HGB CONC 32.1 g/dl (31.0-37.0); MEAN PLATELET VOLUME 11.3 fl (7.0-11.0); PLATELET COUNT 191 10^3/uL (120.0-450.0); RBC 3.98 10^6/uL (3.5-6.1); RED CELL DISTRIBUTION WIDTH 15.9 % (11.5-14.5); WHITE BLOOD COUNT 7.6 10^3/ul (4.5-11.0)
[2017-03-25 06:00] LABS: ALBUMIN 2.8 g/dL (3.0-4.8); ALT/SGPT 43 U/L (7-56); AST/SGOT 32 U/L (15-39); BLOOD UREA NITROGEN 13 mg/dL (7-21); CALCIUM 8.8 mg/dL (8.4-10.5); GFR AFRICAN-AMERICAN > 60; GFR NON-AFRICAN AMERICAN > 60; MAGNESIUM 1.8 mg/dL (1.7-2.2)
[2017-03-25 06:14] LABS: FREE T4 1.39 ng/dL (0.78-2.19)
[2017-03-25 06:31] LABS: NEUTROPHIL 81 % (50.0-70.0)
[2017-03-25 06:32] LABS: BAND 15 % (0-2); LYMPHOCYTE 2 % (22.0-35.0); MONOCYTE 2 % (1.0-6.0); PLATELET ESTIMATE NORMAL (NORMAL)
[2017-03-25] MEDS: Levothyroxine 125 MCG TAB PO SCH (06:44)
[2017-03-25] MEDS: Pantoprazole 40 mg EC Tab PO SCH (06:44)
--- NOTE | 2017-03-25 07:00 | CP.CCUPN ---
<EthelNeelimaGiulia - Last Filed: 03/25/17 13:22> CCU Subjective - Physician Review Subjective (Free Text): 03/25/17 13:22 Pt was found to have non-bloody, watery diarrhea. No CP, SOB, N/V, dysuria. Rectal tube for skin protection CCU Objective - Vital Signs / Intake & Output Vital Signs (Last 4 hours): Vital Signs Temp Pulse Resp BP Pulse Ox 03/25/17 06:50 68 21 100 03/25/17 06:40 65 100 03/25/17 06:30 67 17 100 03/25/17 06:20 67 17 100 03/25/17 06:10 70 18 100 03/25/17 06:01 79 19 106/54 L 100 03/25/17 06:00 70 18 93 L 03/25/17 05:50 70 18 100 03/25/17 05:40 69 17 100 03/25/17 05:30 70 24 100 03/25/17 05:20 69 19 100 03/25/17 05:11 70 18 95/40 L 100 03/25/17 05:10 68 25 H 100 03/25/17 05:09 69 25 H 98 03/25/17 05:00 71 27 H 93/47 L 98 03/25/17 04:50 69 18 99 03/25/17 04:40 69 16 100 03/25/17 04:30 70 21 99 03/25/17 04:20 70 18 100 03/25/17 04:10 69 17 100 03/25/17 04:00 98.3 F 69 16 119/47 L 100 03/25/17 03:50 70 20 99 03/25/17 03:40 70 18 100 03/25/17 03:30 71 31 H 100 03/25/17 03:20 72 26 H 100 03/25/17 03:10 74 18 100 Intake and Output (Last 8hrs): Intake & Output 03/24/17 03/25/17 03/25/17 22:59 06:59 14:59 Intake Total 240 Balance 240 Weight 123 lb 12.8 oz Intake: Oral 240 Other: Voiding Method Bedpan # Bowel Movements 8 - Physical Exam Head: Positive for: Normocephalic, Laceration (Posterior scalp laceration 1 cm with no active bleeding, large hematoma) Pupils: Positive for: PERRL Extroacular Muscles: Positive for: EOMI Conjunctiva: Positive for: Normal Mouth: Positive for: Moist Mucous Membranes Nose (External): Positive for: Atraumatic Neck: Positive for: Normal Range of Motion. Negative for: MIDLINE TENDERNESS ( No c-spine midline tenderness) Respiratory/Chest: Positive for: Clear to Auscultation, Good Air Exchange. Negative for: Respiratory Distress, Accessory Muscle Use, Tender to Palpation ( No chest wall tenderness) Cardiovascular: Positive for: Regular Rate and Rhythm, Normal S1, S2. Negative for: Murmurs Abdomen: Positive for: Normal Bowel Sounds. Negative for: Tenderness, Distention, Peritoneal Signs Back: Positive for: Normal Inspection. Negative for: Midline Tenderness Upper Extremity: Positive for: Normal Inspection, Normal ROM. Negative for: Cyanosis, Edema Lower Extremity: Positive for: Normal Inspection, Normal ROM. Negative for: Edema Neurological: Positive for: GCS=15, CN II-XII Intact, Speech Normal, Motor Func Grossly Intact, Normal Sensory Function Psychiatric: Positive for: Alert, Oriented x 3, Normal Insight, Normal Concentration - Medications Active Medications: Active Medications Generic Name Dose Route Start Last Admin Trade Name Freq PRN Reason Stop Dose Admin Acetaminophen 650 mg 03/24/17 23:13 Tylenol 325mg Tab PO Q6H PRN Pain, Mild (1-3) Amiodarone HCl 200 mg 03/25/17 10:00 Cordarone PO DAILY LUCINA Atorvastatin Calcium 80 mg 03/25/17 10:00 Lipitor PO DAILY LUCINA Levothyroxine Sodium 125 mcg 03/25/17 07:30 03/25/17 06:44 Synthroid PO 125 mcg ACB LUCINA Administration Lisinopril 2.5 mg 03/25/17 10:00 Zestril PO DAILY LUCINA Ondansetron HCl 4 mg 03/24/17 23:13 Zofran Inj IVP Q6H PRN Nausea/Vomiting Pantoprazole Sodium 40 mg 03/25/17 06:00 03/25/17 06:44 Protonix Ec Tab PO 40 mg 0600 LUCINA Administration Tramadol HCl 50 mg 03/24/17 23:25 Ultram PO Q6H PRN Pain, severe (8-10) - Patient Studies Lab Studies: Lab Studies 03/25/17 03/25/17 03/25/17 Range/Units 05:10 05:10 05:10 WBC (4.5-11.0) 10^3/ul RBC (3.5-6.1) 10^6/uL Hgb (12.0-16.0) gm/dL Hct (36.0-48.0) % MCV (80.0-105.0) fL MCH (25.0-35.0) pg MCHC (31.0-37.0) g/dl RDW (11.5-14.5) % Plt Count (120.0-450.0) 10^3/uL MPV (7.0-11.0) fl Neutrophils % (Manual) (50.0-70.0) % Band Neutrophils % (0-2) % Lymphocytes % (Manual) (22.0-35.0) % Monocytes % (Manual) (1.0-6.0) % Platelet Evaluation (NORMAL) APTT 29.6 (23.7-30.8) Seconds Sodium 135 (132-148) mmol/L Potassium 4.5 (3.6-5.0) mmol/L Chloride 105 (98-107) mmol/L Carbon Dioxide 26 (21-33) mmol/L Anion Gap 9 L (10-20) BUN 13 (7-21) mg/dL Creatinine 0.7 (0.5-1.4) mg/dL Est GFR ( Amer) > 60 Est GFR (Non-Af Amer) > 60 Random Glucose 162 H (70-110) mg/dL Calcium 8.8 (8.4-10.5) mg/dL Phosphorus 3.3 (2.5-4.5) mg/dL Magnesium 1.8 (1.7-2.2) mg/dL Total Bilirubin 0.7 (0.2-1.3) mg/dL AST 32 (15-39) U/L ALT 43 (7-56) U/L Alkaline Phosphatase 84 (38-133) U/L Total Protein 5.5 L (5.8-8.3) g/dL Albumin 2.8 L (3.0-4.8) g/dL Globulin 2.7 gm/dL Albumin/Globulin Ratio 1.0 L (1.1-1.8) Free T4 1.39 (0.78-2.19) ng/dL TSH 3rd Generation 3.40 (0.46-4.68) mIU/mL 03/25/17 Range/Units 05:10 WBC 7.6 (4.5-11.0) 10^3/ul RBC 3.98 (3.5-6.1) 10^6/uL Hgb 10.5 L (12.0-16.0) gm/dL Hct 32.7 L (36.0-48.0) % MCV 82.2 (80.0-105.0) fL MCH 26.4 (25.0-35.0) pg MCHC 32.1 (31.0-37.0) g/dl RDW 15.9 H (11.5-14.5) % Plt Count 191 (120.0-450.0) 10^3/uL MPV 11.3 H (7.0-11.0) fl Neutrophils % (Manual) 81 H (50.0-70.0) % Band Neutrophils % 15 H* (0-2) % Lymphocytes % (Manual) 2 L (22.0-35.0) % Monocytes % (Manual) 2 (1.0-6.0) % Platelet Evaluation Normal (NORMAL) APTT (23.7-30.8) Seconds Sodium (132-148) mmol/L Potassium (3.6-5.0) mmol/L Chloride (98-107) mmol/L Carbon Dioxide (21-33) mmol/L Anion Gap (10-20) BUN (7-21) mg/dL Creatinine (0.5-1.4) mg/dL Est GFR ( Amer) Est GFR (Non-Af Amer) Random Glucose (70-110) mg/dL Calcium (8.4-10.5) mg/dL Phosphorus (2.5-4.5) mg/dL Magnesium (1.7-2.2) mg/dL Total Bilirubin (0.2-1.3) mg/dL AST (15-39) U/L ALT (7-56) U/L Alkaline Phosphatase (38-133) U/L Total Protein (5.8-8.3) g/dL Albumin (3.0-4.8) g/dL Globulin gm/dL Albumin/Globulin Ratio (1.1-1.8) Free T4 (0.78-2.19) ng/dL TSH 3rd Generation (0.46-4.68) mIU/mL Laboratory Results - last 24 hr 03/25/17 03/25/17 03/25/17 05:10 05:10 05:10 WBC 7.6 RBC 3.98 Hgb 10.5 L Hct 32.7 L MCV 82.2 MCH 26.4 MCHC 32.1 RDW 15.9 H Plt Count 191 MPV 11.3 H Neutrophils % (Manual) 81 H Band Neutrophils % 15 H* Lymphocytes % (Manual) 2 L Monocytes % (Manual) 2 Platelet Evaluation Normal APTT 29.6 Sodium 135 Potassium 4.5 Chloride 105 Carbon Dioxide 26 Anion Gap 9 L BUN 13 Creatinine 0.7 Est GFR ( Amer) > 60 Est GFR (Non-Af Amer) > 60 Random Glucose 162 H Calcium 8.8 Phosphorus 3.3 Magnesium 1.8 Total Bilirubin 0.7 AST 32 ALT 43 Alkaline Phosphatase 84 Total Protein 5.5 L Albumin 2.8 L Globulin 2.7 Albumin/Globulin Ratio 1.0 L Free T4 TSH 3rd Generation 03/25/17 05:10 WBC RBC Hgb Hct MCV MCH MCHC RDW Plt Count MPV Neutrophils % (Manual) Band Neutrophils % Lymphocytes % (Manual) Monocytes % (Manual) Platelet Evaluation APTT Sodium Potassium Chloride Carbon Dioxide Anion Gap BUN Creatinine Est GFR ( Amer) Est GFR (Non-Af Amer) Random Glucose Calcium Phosphorus Magnesium Total Bilirubin AST ALT Alkaline Phosphatase Total Protein Albumin Globulin Albumin/Globulin Ratio Free T4 1.39 TSH 3rd Generation 3.40 EKG/Cardiology Studies: Cardiology / EKG Studies 03/24/17 20:26 EKG [ELECTROCARDIOGRAM] Stat Comment: Reason For Exam: FALL/HEAD INJURY Critical Care Progress Note - Nutrition Nutrition: Nutrition Category Date Time Status Heart Healthy Diet [DIET] Diets 03/24/17 Breakfast Ordered Assessment/Plan - Assessment and Plan (Free Text) Plan: 86 F with PMH of hypothyroidism, paroxysmal atrial fibrillation, CAD (s/p LAD stent placed 1 week ago at [facility]), chronic colitis and COPD, who slipped and fell backwards while climbing stairs inside her home (03/24) . She landed on her back head, with subsequent throbbing headache pain, swelling and intermittent bleeding from the occipital site of injury. She was started on Coumadin for stroke prophylaxes due to newly diagnosed atrial fibrillation, which discontinued after a small bloody bowel movement. She is still on dual anti-platelet therapy, concern for acute ICH. no focal deficits. CT-head negative for any acute findings. She likely has an occipital Scalp contusion. Her fall 2/2 mechanical vs Syncope vs Seizure vs CVA vs Orthostasis vs Infection vs dehydration from diarrhea Neuro - AAOx3 - check B12, TFT's, orthostatics and UA - repeat CT-head negative for delayed bleeding - hourly neuro checks - keep HOB>30 degrees - fall precautions - contusion site was sutured by ED physician - Fiorecet PRN for headache; Tylenol and Ultram for pain control as needed Cardio - Off anticoagulant for Paroxysmal Atrial Fibrillation - rhythm control by amiodarone - resume ASA and Plavix s/p recent LAD stent per Cardio Pulm - Hx COPD - PRN Duo-nebs - b/l pleural effusion. lasix as needed - O2 via NC as needed to keep sats>92% GI - heart healthy (consistent carb) diet - f/u c.diff - diarrhea work up /Nep - strict i/o Endo - continue home dose of Synthroid - TFT wnl Heme - resume anti-platelet and anti-coagulation meds - INR is 1.7 (likely due to recent, brief Coumadin use) - Daily coags Infectious - Bandemia with normal WBC: sepsis vs hematologic malignancy given chronic colitis hx. Consider flow cytometry - Sepsis with colitis - IV flagul, PO vanco, IV azactam Prophylasix - GI - DVT - SCD S/r/d/w Dr. Hoffmann - Date & Time Date: 03/25/17 Time: 07:00 <Shun QUICK,Bonny H - Last Filed: 03/25/17 17:33> CCU Objective - Vital Signs / Intake & Output Vital Signs (Last 4 hours): Vital Signs Pulse Resp BP Pulse Ox 03/25/17 17:10 63 18 100 03/25/17 17:00 62 15 97/41 L 100 03/25/17 16:50 66 26 H 100 03/25/17 16:40 64 22 96 03/25/17 16:30 62 19 100 03/25/17 16:20 64 21 100 03/25/17 16:10 61 100 03/25/17 16:00 64 23 96/52 L 100 03/25/17 15:50 63 26 H 98 03/25/17 15:40 67 26 H 93 L 03/25/17 15:30 63 20 100 03/25/17 15:20 67 20 99 03/25/17 15:10 63 27 H 99 03/25/17 15:00 65 20 122/45 L 99 03/25/17 14:55 69 18 03/25/17 14:50 73 21 03/25/17 14:48 74 35 H 98/49 L 03/25/17 14:47 69 50 H 96/48 L 03/25/17 14:42 66 25 H 107/50 L 99 03/25/17 14:41 68 16 103/48 L 99 03/25/17 14:40 68 18 100 03/25/17 14:30 67 24 96 03/25/17 14:20 67 99 03/25/17 14:10 71 23 94 L 03/25/17 14:00 67 20 120/57 L 100 03/25/17 13:50 67 16 100 03/25/17 13:40 68 23 97 03/25/17 13:32 67 18 97 Intake and Output (Last 8hrs): Intake & Output 03/25/17 03/25/17 03/25/17 06:59 14:59 22:59 Intake Total 240 Balance 240 Weight 123 lb 12.8 oz Intake: Oral 240 Other: Voiding Method Bedpan Bedpan # Bowel Movements 8 - Medications Active Medications: Active Medications Generic Name Dose Route Start Last Admin Trade Name Freq PRN Reason Stop Dose Admin Acetaminophen 650 mg 03/24/17 23:13 Tylenol 325mg Tab PO Q6H PRN Pain, Mild (1-3) Amiodarone HCl 200 mg 03/25/17 10:00 03/25/17 09:55 Cordarone PO 200 mg DAILY LUCINA Administration Atorvastatin Calcium 80 mg 03/25/17 10:00 03/25/17 09:55 Lipitor PO 80 mg DAILY LUCINA Administration Aztreonam 100 mls @ 100 mls/hr 03/25/17 14:00 03/25/17 14:40 Azactam 1 Gm IVPB 04/02/17 14:01 100 mls/hr Q8 LUCINA Administration Protocol Metronidazole 500 mg in 100 mls @ 100 mls/hr 03/25/17 14:00 03/25/17 14:40 Flagyl IVPB 03/25/17 23:01 100 mls/hr Q8 LUCINA Administration Protocol Levothyroxine Sodium 125 mcg 03/25/17 07:30 03/25/17 06:44 Synthroid PO 125 mcg ACB LUCINA Administration Lisinopril 2.5 mg 03/25/17 10:00 03/25/17 09:56 Zestril PO 2.5 mg DAILY LUCINA Administration Ondansetron HCl 4 mg 03/24/17 23:13 03/25/17 08:25 Zofran Inj IVP 4 mg Q6H PRN Administration Nausea/Vomiting Pantoprazole Sodium 40 mg 03/25/17 06:00 03/25/17 06:44 Protonix Ec Tab PO 40 mg 0600 ULCINA Administration Tramadol HCl 50 mg 03/24/17 23:25 Ultram PO Q6H PRN Pain, severe (8-10) Vancomycin HCl 250 mg 03/25/17 14:00 03/25/17 15:16 Vancocin 25 Mg/Ml (Oral Use) PO 04/02/17 14:01 250 mg QID LUCINA Administration Protocol - Patient Studies Lab Studies: Microbiology Studies 03/25/17 00:25 C. difficile Antigen & Toxin A,B (M - Final Stool Lab Studies 03/25/17 03/25/17 03/25/17 Range/Units 16:49 05:10 05:10 WBC (4.5-11.0) 10^3/ul RBC (3.5-6.1) 10^6/uL Hgb (12.0-16.0) gm/dL Hct (36.0-48.0) % MCV (80.0-105.0) fL MCH (25.0-35.0) pg MCHC (31.0-37.0) g/dl RDW (11.5-14.5) % Plt Count (120.0-450.0) 10^3/uL MPV (7.0-11.0) fl Neutrophils % (Manual) (50.0-70.0) % Band Neutrophils % (0-2) % Lymphocytes % (Manual) (22.0-35.0) % Monocytes % (Manual) (1.0-6.0) % Platelet Evaluation (NORMAL) APTT (23.7-30.8) Seconds Sodium 135 (132-148) mmol/L Potassium 4.5 (3.6-5.0) mmol/L Chloride 105 (98-107) mmol/L Carbon Dioxide 26 (21-33) mmol/L Anion Gap 9 L (10-20) BUN 13 (7-21) mg/dL Creatinine 0.7 (0.5-1.4) mg/dL Est GFR ( Amer) > 60 Est GFR (Non-Af Amer) > 60 POC Glucose (mg/dL) 127 H (65-110) mg/dL Random Glucose 162 H (70-110) mg/dL Calcium 8.8 (8.4-10.5) mg/dL Phosphorus 3.3 (2.5-4.5) mg/dL Magnesium 1.8 (1.7-2.2) mg/dL Total Bilirubin 0.7 (0.2-1.3) mg/dL AST 32 (15-39) U/L ALT 43 (7-56) U/L Alkaline Phosphatase 84 (38-133) U/L Total Protein 5.5 L (5.8-8.3) g/dL Albumin 2.8 L (3.0-4.8) g/dL Globulin 2.7 gm/dL Albumin/Globulin Ratio 1.0 L (1.1-1.8) Vitamin B12 893 (239-931) pg/mL Free T4 1.39 (0.78-2.19) ng/dL TSH 3rd Generation 3.40 (0.46-4.68) mIU/mL 03/25/17 03/25/17 Range/Units 05:10 05:10 WBC 7.6 (4.5-11.0) 10^3/ul RBC 3.98 (3.5-6.1) 10^6/uL Hgb 10.5 L (12.0-16.0) gm/dL Hct 32.7 L (36.0-48.0) % MCV 82.2 (80.0-105.0) fL MCH 26.4 (25.0-35.0) pg MCHC 32.1 (31.0-37.0) g/dl RDW 15.9 H (11.5-14.5) % Plt Count 191 (120.0-450.0) 10^3/uL MPV 11.3 H (7.0-11.0) fl Neutrophils % (Manual) 81 H (50.0-70.0) % Band Neutrophils % 15 H* (0-2) % Lymphocytes % (Manual) 2 L (22.0-35.0) % Monocytes % (Manual) 2 (1.0-6.0) % Platelet Evaluation Normal (NORMAL) APTT 29.6 (23.7-30.8) Seconds Sodium (132-148) mmol/L Potassium (3.6-5.0) mmol/L Chloride (98-107) mmol/L Carbon Dioxide (21-33) mmol/L Anion Gap (10-20) BUN (7-21) mg/dL Creatinine (0.5-1.4) mg/dL Est GFR ( Amer) Est GFR (Non-Af Amer) POC Glucose (mg/dL) (65-110) mg/dL Random Glucose (70-110) mg/dL Calcium (8.4-10.5) mg/dL Phosphorus (2.5-4.5) mg/dL Magnesium (1.7-2.2) mg/dL Total Bilirubin (0.2-1.3) mg/dL AST (15-39) U/L ALT (7-56) U/L Alkaline Phosphatase (38-133) U/L Total Protein (5.8-8.3) g/dL Albumin (3.0-4.8) g/dL Globulin gm/dL Albumin/Globulin Ratio (1.1-1.8) Vitamin B12 (239-931) pg/mL Free T4 (0.78-2.19) ng/dL TSH 3rd Generation (0.46-4.68) mIU/mL Laboratory Results - last 24 hr 03/25/17 03/25/17 03/25/17 05:10 05:10 05:10 WBC 7.6 RBC 3.98 Hgb 10.5 L Hct 32.7 L MCV 82.2 MCH 26.4 MCHC 32.1 RDW 15.9 H Plt Count 191 MPV 11.3 H Neutrophils % (Manual) 81 H Band Neutrophils % 15 H* Lymphocytes % (Manual) 2 L Monocytes % (Manual) 2 Platelet Evaluation Normal APTT 29.6 Sodium 135 Potassium 4.5 Chloride 105 Carbon Dioxide 26 Anion Gap 9 L BUN 13 Creatinine 0.7 Est GFR ( Amer) > 60 Est GFR (Non-Af Amer) > 60 POC Glucose (mg/dL) Random Glucose 162 H Calcium 8.8 Phosphorus 3.3 Magnesium 1.8 Total Bilirubin 0.7 AST 32 ALT 43 Alkaline Phosphatase 84 Total Protein 5.5 L Albumin 2.8 L Globulin 2.7 Albumin/Globulin Ratio 1.0 L Vitamin B12 893 Free T4 TSH 3rd Generation 03/25/17 03/25/17 05:10 16:49 WBC RBC Hgb Hct MCV MCH MCHC RDW Plt Count MPV Neutrophils % (Manual) Band Neutrophils % Lymphocytes % (Manual) Monocytes % (Manual) Platelet Evaluation APTT Sodium Potassium Chloride Carbon Dioxide Anion Gap BUN Creatinine Est GFR ( Amer) Est GFR (Non-Af Amer) POC Glucose (mg/dL) 127 H Random Glucose Calcium Phosphorus Magnesium Total Bilirubin AST ALT Alkaline Phosphatase Total Protein Albumin Globulin Albumin/Globulin Ratio Vitamin B12 Free T4 1.39 TSH 3rd Generation 3.40 EKG/Cardiology Studies: Cardiology / EKG Studies 03/24/17 20:26 EKG [ELECTROCARDIOGRAM] Stat Comment: Reason For Exam: FALL/HEAD INJURY Critical Care Progress Note - Nutrition Nutrition: Nutrition Category Date Time Status Heart Healthy Diet [DIET] Diets 03/24/17 Breakfast Ordered Heart Healthy Diet [DIET] Diets 03/26/17 Breakfast Ordered Attending/Attestation - Attestation I have personally seen and examined this patient.: Yes I have fully participated in the care of the patient.: Yes I have reviewed all pertinent clinical information: Yes Notes (Text): 03/25/17 17:31 86 y/o F admitted after mechanical fall and scalp laceration. No ICH noted, No campos ein mental status no LOC. This morning found to have no complaints. Has been dealing with some watery stool in the past week . Recent ABX use from the hospital and is at risk for C DIFF. HGB stable without any further bleeding since taken off anticoagulants. Recent LAD stent and needs to be on Plavix , asprin. cc time 45 min
[2017-03-25] MEDS ORDERED: Meropenem 1g/NS 100mL IVPB 1 GM/100 ML PIGGYBACK IVPB STA (07:09)
[2017-03-25] MEDS ORDERED: Vancomycin 1gm in NS 250ml 1 GM/250 ML BAG IVPB STA (07:09)
--- NOTE | 2017-03-25 07:45 | CT ---
PROCEDURE: CT HEAD WITHOUT CONTRAST. HISTORY: head injury COMPARISON: None available. TECHNIQUE: Axial computed tomography images were obtained through the head/brain without intravenous contrast. Radiation dose: Total exam DLP = 725 mGy-cm. This CT exam was performed using one or more of the following dose reduction techniques: Automated exposure control, adjustment of the mA and/or kV according to patient size, and/or use of iterative reconstruction technique. FINDINGS: HEMORRHAGE: No intracranial hemorrhage. BRAIN: No mass effect or edema. No atrophy or chronic microvascular ischemic changes. VENTRICLES: Unremarkable. No hydrocephalus. CALVARIUM: Unremarkable. PARANASAL SINUSES: Unremarkable as visualized. No significant inflammatory changes. MASTOID AIR CELLS: Unremarkable as visualized. No inflammatory changes. OTHER FINDINGS: None. IMPRESSION: Normal CT of the Head.
[2017-03-25] MEDS ORDERED: Phytonadione 10 mg/ml Inj (Adult) SC STA (08:42)
--- NOTE | 2017-03-25 08:58 | CP.PCM.PN ---
Subjective - Date & Time of Evaluation Date of Evaluation: 03/25/17 Time of Evaluation: 07:00 - Subjective Subjective: Stable in CCU. Events noted. Fell at home with head trauma while on ASA, Plavix for recent Acute [place] and LAD PCI at [facility]. VANEGAS and occipital lac. No syncope. No CP or SOB. V/S noted. RSR PE: lungs: clear Cor.: S1S2 Abd.: soft Ext.: no edema Neuro.; alert Labs noted: INR 1.73 ECG: RSR, RBBB, LAHB, Ant. [place], STTW changes CXR no def infiltrate or CHF, my reading Objective - Vital Signs/Intake and Output Vital Signs (last 24 hours): Temp Pulse Resp BP Pulse Ox 98.3 F 68 21 106/54 L 100 03/25/17 04:00 03/25/17 06:50 03/25/17 06:50 03/25/17 06:01 03/25/17 06:50 Intake and Output: 03/25/17 03/25/17 06:59 18:59 Intake Total 240 Balance 240 - Medications Medications: Current Medications Acetaminophen (Tylenol 325mg Tab) 650 mg PO Q6H PRN PRN Reason: Pain, Mild (1-3) Amiodarone HCl (Cordarone) 200 mg PO DAILY [facility] Atorvastatin Calcium (Lipitor) 80 mg PO DAILY [facility] Levothyroxine Sodium (Synthroid) 125 mcg PO ACB [facility] Last Admin: 03/25/17 06:44 Dose: 125 mcg Lisinopril (Zestril) 2.5 mg PO DAILY [facility] Ondansetron HCl (Zofran Inj) 4 mg IVP Q6H PRN PRN Reason: Nausea/Vomiting Pantoprazole Sodium (Protonix Ec Tab) 40 mg PO 0600 [facility] Last Admin: 03/25/17 06:44 Dose: 40 mg Tramadol HCl (Ultram) 50 mg PO Q6H PRN PRN Reason: Pain, severe (8-10) - Labs Labs: 03/25/17 05:10 03/25/17 05:10 PT 18.7 Seconds (9.9-11.8) H 03/24/17 20:30 INR 1.73 (0.93-1.08) H 03/24/17 20:30 APTT 29.6 Seconds (23.7-30.8) 03/25/17 05:10 Assessment and Plan - Assessment and Plan (Free Text) Assessment: Fall at home. Probably mech. fall. Head trauma, occipital lac., VANEGAS S/P acute ant. M with LAD PCI 1 week ago at [facility] PAF, not on warfarin b/o GIB COPD RBBB Diabetes S/P subtotal thyroidectomy S/P hysterectomy Colitis Plan: Vit K. Neuro signs Neuro evaluation Check postural V/S Resume ASA and Plavix MICHAEL (recent stents), as per Neuro and repeat CT head Continue cardiac meds: amiod., metoprolol, Lipitor, lisinopril Monitor: labs, I/O, sats., neuro. signs, stool for OB, INR's, etc. Will follow
--- NOTE | 2017-03-25 09:29 | RAD ---
HISTORY: evaluate for PNA COMPARISON: 03/18/2017 FINDINGS: LUNGS: No active pulmonary disease. PLEURA: No significant pleural effusion identified, no pneumothorax apparent. CARDIOVASCULAR: Decreased vascular congestion. The heart is normal in size OSSEOUS STRUCTURES: No significant abnormalities. VISUALIZED UPPER ABDOMEN: Normal. OTHER FINDINGS: None. IMPRESSION: Decreased vascular congestion
--- NOTE | 2017-03-25 10:54 | CP.PCM.CON ---
History of Present Illness - History of Present Illness History of Present Illness: severe diarrhea Review of Systems - Constitutional Constitutional: Weakness - Gastrointestinal Gastrointestinal: Diarrhea - Neurological Neurological: Weakness Past Patient History - Infectious Disease Hx of Infectious Diseases: None - Past Medical History & Family History Past Medical History?: Yes - Past Social History Smoking Status: Never Smoked - CARDIAC Hx Hypercholesterolemia: Yes - PULMONARY Other/Comment: ble variscosities - HEENT Hx HEENT Problems: Yes ("runny nose" at times) - ENDOCRINE/METABOLIC Other/Comment: Diabetes with no medication - MUSCULOSKELETAL/RHEUMATOLOGICAL Hx Falls: Yes - GASTROINTESTINAL Other/Comment: ulcerative colitis,colectomy - PSYCHIATRIC Hx Substance Use: No - SURGICAL HISTORY Hx Hysterectomy: Yes Other/Comment: thyroidectomy - ANESTHESIA Hx Anesthesia: Yes Hx Anesthesia Reactions: No Hx Malignant Hyperthermia: No Meds Allergies/Adverse Reactions: Allergies Allergy/AdvReac Type Severity Reaction Status Date / Time pcn Allergy ITCHING Uncoded 03/16/17 07:51 - Medications Medications: Current Medications Acetaminophen (Tylenol 325mg Tab) 650 mg PO Q6H PRN PRN Reason: Pain, Mild (1-3) Amiodarone HCl (Cordarone) 200 mg PO DAILY [facility] Last Admin: 03/25/17 09:55 Dose: 200 mg Atorvastatin Calcium (Lipitor) 80 mg PO DAILY [facility] Last Admin: 03/25/17 09:55 Dose: 80 mg Aztreonam (Azactam 1 Gm) 100 mls @ 100 mls/hr IVPB Q8 [facility] PRN Reason: Protocol Stop: 04/02/17 14:01 Metronidazole (Flagyl) 500 mg in 100 mls @ 100 mls/hr IVPB Q8 [facility] PRN Reason: Protocol Stop: 03/25/17 23:01 Levothyroxine Sodium (Synthroid) 125 mcg PO ACB [facility] Last Admin: 03/25/17 06:44 Dose: 125 mcg Lisinopril (Zestril) 2.5 mg PO DAILY [facility] Last Admin: 03/25/17 09:56 Dose: 2.5 mg Ondansetron HCl (Zofran Inj) 4 mg IVP Q6H PRN PRN Reason: Nausea/Vomiting Last Admin: 03/25/17 08:25 Dose: 4 mg Pantoprazole Sodium (Protonix Ec Tab) 40 mg PO 0600 [facility] Last Admin: 03/25/17 06:44 Dose: 40 mg Tramadol HCl (Ultram) 50 mg PO Q6H PRN PRN Reason: Pain, severe (8-10) Vancomycin HCl (Vancocin 25 Mg/Ml (Oral Use)) 250 mg PO QID [facility] PRN Reason: Protocol Stop: 04/02/17 14:01 Physical Exam - Constitutional Appears: Well - Head Exam Head Exam: ATRAUMATIC, NORMAL INSPECTION, NORMOCEPHALIC - Eye Exam Eye Exam: EOMI, Normal appearance, PERRL Pupil Exam: NORMAL ACCOMODATION, PERRL - ENT Exam ENT Exam: Mucous Membranes Moist, Normal Exam - Neck Exam Neck exam: Positive for: Normal Inspection - Respiratory Exam Respiratory Exam: Clear to Auscultation Bilateral, NORMAL BREATHING PATTERN - Cardiovascular Exam Cardiovascular Exam: REGULAR RHYTHM - GI/Abdominal Exam GI & Abdominal Exam: Normal Bowel Sounds, Soft. absent: Tenderness - Rectal Exam Rectal Exam: NORMAL INSPECTION - Exam Exam: Circumcision, NORMAL INSPECTION External exam: NORMAL EXTERNAL EXAM Speculum exam: NORMAL SPECULUM EXAM Bimanual exam: NORMAL BIMANUAL EXAM - Extremities Exam Extremities exam: Positive for: normal inspection - Back Exam Back exam: NORMAL INSPECTION - Neurological Exam Neurological exam: Alert, CN II-XII Intact, Normal Gait, Oriented x3, Reflexes Normal - Psychiatric Exam Psychiatric exam: Normal Affect, Normal Mood - Skin Skin Exam: Dry, Intact, Normal Color, Warm Results - Vital Signs Recent Vital Signs: Last Vital Signs Temp 98.3 F 03/25/17 04:00 Pulse 68 03/25/17 09:56 Resp 21 03/25/17 06:50 BP 106/49 L 03/25/17 09:56 Pulse Ox 100 03/25/17 06:50 - Labs Result Diagrams: 03/25/17 05:10 03/25/17 05:10 Labs: Laboratory Results - last 24 hr 03/25/17 03/25/17 03/25/17 05:10 05:10 05:10 WBC 7.6 RBC 3.98 Hgb 10.5 L Hct 32.7 L MCV 82.2 MCH 26.4 MCHC 32.1 RDW 15.9 H Plt Count 191 MPV 11.3 H Neutrophils % (Manual) 81 H Band Neutrophils % 15 H* Lymphocytes % (Manual) 2 L Monocytes % (Manual) 2 Platelet Evaluation Normal APTT 29.6 Sodium 135 Potassium 4.5 Chloride 105 Carbon Dioxide 26 Anion Gap 9 L BUN 13 Creatinine 0.7 Est GFR ( Amer) > 60 Est GFR (Non-Af Amer) > 60 Random Glucose 162 H Calcium 8.8 Phosphorus 3.3 Magnesium 1.8 Total Bilirubin 0.7 AST 32 ALT 43 Alkaline Phosphatase 84 Total Protein 5.5 L Albumin 2.8 L Globulin 2.7 Albumin/Globulin Ratio 1.0 L Free T4 TSH 3rd Generation 03/25/17 05:10 WBC RBC Hgb Hct MCV MCH MCHC RDW Plt Count MPV Neutrophils % (Manual) Band Neutrophils % Lymphocytes % (Manual) Monocytes % (Manual) Platelet Evaluation APTT Sodium Potassium Chloride Carbon Dioxide Anion Gap BUN Creatinine Est GFR ( Amer) Est GFR (Non-Af Amer) Random Glucose Calcium Phosphorus Magnesium Total Bilirubin AST ALT Alkaline Phosphatase Total Protein Albumin Globulin Albumin/Globulin Ratio Free T4 1.39 TSH 3rd Generation 3.40 Assessment & Plan (1) Septic colitis Status: Acute (2) SIRS (systemic inflammatory response syndrome) Status: Acute (3) Bandemia Status: Acute (4) Bandemia Status: Acute - Assessment and Plan (Free Text) Plan: SEPSIS WITH COLITIS AND BANDEMIA IV FLAGYL, PO VANCO IV AZACTUM PENDING [place] CULTS - Date & Time Date: 03/25/17 Time: 10:50
--- NOTE | 2017-03-25 11:10 | CARD ---
APPROVED REPORT EKG Measurement Heart [id number] <Conclusion> Normal sinus rhythm Right bundle branch block Inferior infarct, age undetermined Anteroseptal infarct, age undetermined
--- NOTE | 2017-03-25 11:25 | CT ---
PROCEDURE: CT HEAD WITHOUT CONTRAST. HISTORY: evaluate for development of acute ICH COMPARISON: 03/24/2017 TECHNIQUE: Axial computed tomography images were obtained through the head/brain without intravenous contrast. Radiation dose: Total exam DLP = 734 mGy-cm. This CT exam was performed using one or more of the following dose reduction techniques: Automated exposure control, adjustment of the mA and/or kV according to patient size, and/or use of iterative reconstruction technique. FINDINGS: HEMORRHAGE: No intracranial hemorrhage. BRAIN: No mass effect or edema. No atrophy or chronic microvascular ischemic changes. VENTRICLES: Unremarkable. No hydrocephalus. CALVARIUM: Unremarkable. PARANASAL SINUSES: Unremarkable as visualized. No significant inflammatory changes. MASTOID AIR CELLS: Unremarkable as visualized. No inflammatory changes. OTHER FINDINGS: None. IMPRESSION: No acute findings
--- NOTE | 2017-03-25 12:20 | CT ---
PROCEDURE: CT Abdomen and Pelvis without intravenous contrast HISTORY: r/o obstruction COMPARISON: None. TECHNIQUE: Without contrast.. Contrast Dose: Radiation dose: Total exam DLP = 270 mGy-cm. This CT exam was performed using one or more of the following dose reduction techniques: Automated exposure control, adjustment of the mA and/or kV according to patient size, and/or use of iterative reconstruction technique. FINDINGS: LOWER THORAX: Small bilateral pleural effusions and bibasilar atelectasis LIVER: Large hypodense liver lesions are seen which were demonstrated on a previous contrast-enhanced study. The appearance on neck contrast-enhanced study was most consistent with hemangiomas GALLBLADDER AND BILE DUCTS: Large gallstones. PANCREAS: Unremarkable. No gross lesion or ductal dilatation. SPLEEN: Unremarkable. ADRENALS: Unremarkable. No mass. KIDNEYS AND URETERS: Unremarkable. No hydronephrosis. No solid mass. Nonobstructing renal stones VASCULATURE: Unremarkable. No aortic aneurysm. BOWEL: Unremarkable. No obstruction. No gross mural thickening. APPENDIX: Unremarkable. Normal appendix. PERITONEUM: Unremarkable. No free fluid. No free air. LYMPH NODES: Unremarkable. No enlarged lymph nodes. BLADDER: Unremarkable. REPRODUCTIVE: Unremarkable. BONES: No acute fracture. OTHER FINDINGS: None. IMPRESSION: No acute findings. No evidence of bowel obstruction. Bilateral pleural effusions
--- NOTE | 2017-03-25 12:44 | CP.PCM.CON ---
History of Present Illness - History of Present Illness History of Present Illness: NEURO CONSULT NOTE: 03/25/17 CHIEF COMPLAINT: S/P HEAD TRAUMA FROM FALL. HPI: The patient is an 86 year old woman with a history of hypothyroidism, paroxysmal atrial fibrillation, CAD (s/p LAD stent placed 1 week ago at [facility]), chronic colitis and COPD, who slipped and fell backwards while climbing stairs inside her home earlier in the evening. She ended up landing on the back of her head. Since the incident, she's had throbbing headache pain, swelling and intermittent bleeding from the occipital site of injury.Ct head showed no acute abnormality, just mild occipital scalp hematoma per my read. Currently she is in bed following commands, moving all extremities. Headache is much better, but is having diffuse diarrhea. No afib episodes. ROS: 14 POINT REVIEW OF SYMPTOMS IS NEGATIVE PER HPI. ALLERGIES:PCN. SOCIAL HISTORY: NO ILLICIT DRUG USE, SMOKING, OR ETOH USE. FAMILY: NON CONTRIBUTORY. MEDICATIONS: REVIEWED BY NURSE'S RECONCILIATION SHEET. PAST MEDICAL HISTORY: hYPOTHYROIDISM, PAROSYMAL AFIB, CAD S/P STENT, COPD, COLITIS. PHYSICAL EXAM: VITAL SIGNS: REVIEWED BY THE CHART GENERAL EXAM: PATIENT SEEN IN BED, IN NO ACUTE DISTRESS HEENT: PERRLA, EOMI, NECK SUPPLE, NO JVD, NO ADENOPATHY CVS: S1, S2, RRR, NO MURMURS NOTED LUNGS: CLEAR TO AUSCULTATION, NO ADVENTITIOUS SOUNDS ABDOMEN: SOFT AND NONTENDER EXTREMITIES: NO CLUBBING OR CYANOSIS. PP 2+ B/L NEURO: PT IS ALERT AND ORIENTED TO PERSON, PLACE, AND YEAR. , RECALL TO 5 MINUTES 3/3, SPEECH IS FLUENT WITHOUT ERRORS, CN II-XII INTACT, MOTOR EXAM: NORMAL TONE, NORMAL BULK OF MUSCLE, MOVES ALL EXTREMITIES EQUALLY, NO PRONATOR DRIFT SEEN. SENSORY EXAM: LIGHT TOUCH, PIN PRICK UP TO CALVES B/L, PROPRIOCEPTION , VIBRATION ARE INTACT B/L DEEP TENDON REFLEXES: 2+ THROUGHOUT. COORDINATION: FINGER TO NOSE IS INTACT. HEEL TO MORA IS INTACT GAIT: DEFERRED FOR NOW. LABS: REVIEWED BY THE CHART. ASSESSMENT AND PLAN: The patient is an 86 year old woman with a history of hypothyroidism, paroxysmal atrial fibrillation, CAD (s/p LAD stent placed 1 week ago at [facility]), chronic colitis and COPD, who slipped and fell backwards while climbing stairs inside her home earlier in the evening. She ended up landing on the back of her head. Since the incident, she's had throbbing headache pain, swelling and intermittent bleeding from the occipital site of injury.Ct head showed no acute abnormality, just mild occipital scalp hematoma per my read. Currently she is in bed following commands, moving all extremities. Headache is much better, but is having diffuse diarrhea. IMPRESSION: HEADACHE IS FROM S/P FALL S/P OCCIPITAL LACERATION WITHOUT LOC. SHE IS DOING MUCH BETTER EXCEPT FOR PROFUSE DIARRHEA. 1. ASA 81 MG AND PLAVIX 75 MG PO FOR STROKE PREVENTION 2.FIORECET AT THE ACUTE ONSET OF HEADACHE 3. REPEAT CT HEAD TO EVALUATE FOR DELAYED BLEEDING. 4. GI FOR DIARRHEA WORKUP. 5. PHYSICAL THERAPY EVALUATION. 6. MONITOR ELECTROLYTES AND CORRECT ACCORDINGLY. THANK YOU. Merissa WALTON MD Past Patient History - Infectious Disease Hx of Infectious Diseases: None - Past Medical History & Family History Past Medical History?: Yes - Past Social History Smoking Status: Never Smoked - CARDIAC Hx Hypercholesterolemia: Yes - PULMONARY Other/Comment: ble variscosities - HEENT Hx HEENT Problems: Yes ("runny nose" at times) - ENDOCRINE/METABOLIC Other/Comment: Diabetes with no medication - MUSCULOSKELETAL/RHEUMATOLOGICAL Hx Falls: Yes - GASTROINTESTINAL Other/Comment: ulcerative colitis,colectomy - PSYCHIATRIC Hx Substance Use: No - SURGICAL HISTORY Hx Hysterectomy: Yes Other/Comment: thyroidectomy - ANESTHESIA Hx Anesthesia: Yes Hx Anesthesia Reactions: No Hx Malignant Hyperthermia: No Meds Allergies/Adverse Reactions: Allergies Allergy/AdvReac Type Severity Reaction Status Date / Time pcn Allergy ITCHING Uncoded 03/16/17 07:51 - Medications Medications: Current Medications Acetaminophen (Tylenol 325mg Tab) 650 mg PO Q6H PRN PRN Reason: Pain, Mild (1-3) Amiodarone HCl (Cordarone) 200 mg PO DAILY [facility] Last Admin: 03/25/17 09:55 Dose: 200 mg Atorvastatin Calcium (Lipitor) 80 mg PO DAILY [facility] Last Admin: 03/25/17 09:55 Dose: 80 mg Aztreonam (Azactam 1 Gm) 100 mls @ 100 mls/hr IVPB Q8 [facility] PRN Reason: Protocol Stop: 04/02/17 14:01 Metronidazole (Flagyl) 500 mg in 100 mls @ 100 mls/hr IVPB Q8 [facility] PRN Reason: Protocol Stop: 03/25/17 23:01 Levothyroxine Sodium (Synthroid) 125 mcg PO ACB [facility] Last Admin: 03/25/17 06:44 Dose: 125 mcg Lisinopril (Zestril) 2.5 mg PO DAILY [facility] Last Admin: 03/25/17 09:56 Dose: 2.5 mg Ondansetron HCl (Zofran Inj) 4 mg IVP Q6H PRN PRN Reason: Nausea/Vomiting Last Admin: 03/25/17 08:25 Dose: 4 mg Pantoprazole Sodium (Protonix Ec Tab) 40 mg PO 0600 [facility] Last Admin: 03/25/17 06:44 Dose: 40 mg Tramadol HCl (Ultram) 50 mg PO Q6H PRN PRN Reason: Pain, severe (8-10) Vancomycin HCl (Vancocin 25 Mg/Ml (Oral Use)) 250 mg PO QID [facility] PRN Reason: Protocol Stop: 04/02/17 14:01 Results - Vital Signs Recent Vital Signs: Last Vital Signs Temp 98.3 F 03/25/17 04:00 Pulse 62 03/25/17 10:50 Resp 143 H 03/25/17 11:24 BP 100/51 L 03/25/17 10:00 Pulse Ox 100 03/25/17 10:50 - Labs Result Diagrams: 03/25/17 05:10 03/25/17 05:10 Labs: Laboratory Results - last 24 hr 03/25/17 03/25/17 03/25/17 05:10 05:10 05:10 WBC 7.6 RBC 3.98 Hgb 10.5 L Hct 32.7 L MCV 82.2 MCH 26.4 MCHC 32.1 RDW 15.9 H Plt Count 191 MPV 11.3 H Neutrophils % (Manual) 81 H Band Neutrophils % 15 H* Lymphocytes % (Manual) 2 L Monocytes % (Manual) 2 Platelet Evaluation Normal APTT 29.6 Sodium 135 Potassium 4.5 Chloride 105 Carbon Dioxide 26 Anion Gap 9 L BUN 13 Creatinine 0.7 Est GFR ( Amer) > 60 Est GFR (Non-Af Amer) > 60 Random Glucose 162 H Calcium 8.8 Phosphorus 3.3 Magnesium 1.8 Total Bilirubin 0.7 AST 32 ALT 43 Alkaline Phosphatase 84 Total Protein 5.5 L Albumin 2.8 L Globulin 2.7 Albumin/Globulin Ratio 1.0 L Free T4 TSH 3rd Generation 03/25/17 05:10 WBC RBC Hgb Hct MCV MCH MCHC RDW Plt Count MPV Neutrophils % (Manual) Band Neutrophils % Lymphocytes % (Manual) Monocytes % (Manual) Platelet Evaluation APTT Sodium Potassium Chloride Carbon Dioxide Anion Gap BUN Creatinine Est GFR ( Amer) Est GFR (Non-Af Amer) Random Glucose Calcium Phosphorus Magnesium Total Bilirubin AST ALT Alkaline Phosphatase Total Protein Albumin Globulin Albumin/Globulin Ratio Free T4 1.39 TSH 3rd Generation 3.40
[2017-03-25] MEDS: Aztreonam 1 Gm in NS 100mL 100 ML IVPB SCH ×2 (14:40→22:20)
[2017-03-25] MEDS: metroNIDAZOLE IV 500 mg/100 ml 500 MG/100 ML BAG IVPB SCH ×2 (14:40→21:24)
[2017-03-25] MEDS: Vancomycin 25 MG/ML PO SCH ×3 (15:16→21:24)
--- NOTE | 2017-03-25 18:10 | CP.PCM.PN ---
Subjective - Date & Time of Evaluation Date of Evaluation: 03/25/17 Time of Evaluation: 08:30 - Subjective Subjective: S/p fall Head trauma Diarrhea S/p NSTEMI/LAD stent A.fibrillation history Objective - Vital Signs/Intake and Output Vital Signs (last 24 hours): Temp Pulse Resp BP Pulse Ox 98.3 F 63 18 97/41 L 100 03/25/17 04:00 03/25/17 17:10 03/25/17 17:10 03/25/17 17:00 03/25/17 17:10 Intake and Output: 03/25/17 03/25/17 06:59 18:59 Intake Total 240 Balance 240 - Medications Medications: Current Medications Acetaminophen (Tylenol 325mg Tab) 650 mg PO Q6H PRN PRN Reason: Pain, Mild (1-3) Amiodarone HCl (Cordarone) 200 mg PO DAILY [facility] Last Admin: 03/25/17 09:55 Dose: 200 mg Atorvastatin Calcium (Lipitor) 80 mg PO DAILY [facility] Last Admin: 03/25/17 09:55 Dose: 80 mg Aztreonam (Azactam 1 Gm) 100 mls @ 100 mls/hr IVPB Q8 [facility] PRN Reason: Protocol Stop: 04/02/17 14:01 Last Admin: 03/25/17 14:40 Dose: 100 mls/hr Metronidazole (Flagyl) 500 mg in 100 mls @ 100 mls/hr IVPB Q8 [facility] PRN Reason: Protocol Stop: 03/25/17 23:01 Last Admin: 03/25/17 14:40 Dose: 100 mls/hr Levothyroxine Sodium (Synthroid) 125 mcg PO ACB [facility] Last Admin: 03/25/17 06:44 Dose: 125 mcg Lisinopril (Zestril) 2.5 mg PO DAILY [facility] Last Admin: 03/25/17 09:56 Dose: 2.5 mg Ondansetron HCl (Zofran Inj) 4 mg IVP Q6H PRN PRN Reason: Nausea/Vomiting Last Admin: 03/25/17 08:25 Dose: 4 mg Pantoprazole Sodium (Protonix Ec Tab) 40 mg PO 0600 [facility] Last Admin: 03/25/17 06:44 Dose: 40 mg Tramadol HCl (Ultram) 50 mg PO Q6H PRN PRN Reason: Pain, severe (8-10) Vancomycin HCl (Vancocin 25 Mg/Ml (Oral Use)) 250 mg PO QID [facility] PRN Reason: Protocol Stop: 04/02/17 14:01 Last Admin: 03/25/17 15:16 Dose: 250 mg - Labs Labs: 03/25/17 05:10 03/25/17 05:10 PT 18.7 Seconds (9.9-11.8) H 03/24/17 20:30 INR 1.73 (0.93-1.08) H 03/24/17 20:30 APTT 29.6 Seconds (23.7-30.8) 03/25/17 05:10 - Head Exam Additional comments: Scalp lacertion - Respiratory Exam Respiratory Exam: NORMAL BREATHING PATTERN. absent: Respiratory Distress - GI/Abdominal Exam GI & Abdominal Exam: Normal Bowel Sounds - Rectal Exam Rectal Exam: Deferred - Extremities Exam Extremities Exam: Normal Inspection - Neurological Exam Neurological Exam: Oriented x3 Assessment and Plan - Assessment and Plan (Free Text) Assessment: Await repeat head CT/Neuro eval GI/Cardiol/ID eval pending Check stool occult blood/C.diff
[2017-03-25 22:41] LABS: BASO # 0.02 K/mm3 (0.0-2.0); BASO % 0.4 % (0.0-3.0); EOS # 0.2 (0.0-0.7); EOS % 2.9 % (1.5-5.0); GRAN # 4.09 (1.4-6.5); GRAN % 79.3 % (50.0-68.0); HEMOGLOBIN 9.3 gm/dL (12.0-16.0); LYMPH # 0.5 (1.2-3.4); LYMPH % 8.9 % (22.0-35.0); MEAN CELL VOLUME 84.4 fL (80.0-105.0); MEAN CORPUSCULAR HGB CONC 30.8 g/dl (31.0-37.0); MEAN PLATELET VOLUME 11.3 fl (7.0-11.0); MONO # 0.4 (0.1-0.6); MONO % 8.5 % (1.0-6.0); PLATELET COUNT 184 10^3/uL (120.0-450.0); RBC 3.58 10^6/uL (3.5-6.1); RED CELL DISTRIBUTION WIDTH 16.3 % (11.5-14.5); WHITE BLOOD COUNT 5.2 10^3/ul (4.5-11.0)
[2017-03-26] MEDS: Aztreonam 1 Gm in NS 100mL 100 ML IVPB SCH ×2 (05:15→22:02)
[2017-03-26] MEDS: Pantoprazole 40 mg EC Tab PO SCH (05:15)
[2017-03-26 06:00] LABS: ALBUMIN 2.5 g/dL (3.0-4.8); ALT/SGPT 41 U/L (7-56); AST/SGOT 31 U/L (15-39); BLOOD UREA NITROGEN 13 mg/dL (7-21); CALCIUM 8.5 mg/dL (8.4-10.5); GFR AFRICAN-AMERICAN > 60; GFR NON-AFRICAN AMERICAN > 60
[2017-03-26 06:01] LABS: INR 1.36 (0.93-1.08); PROTHROMBIN TIME 14.7 Seconds (9.9-11.8)
[2017-03-26 06:08] LABS: BASO # 0.01 K/mm3 (0.0-2.0); BASO % 0.2 % (0.0-3.0); EOS # 0.3 (0.0-0.7); EOS % 6.2 % (1.5-5.0); GRAN # 2.85 (1.4-6.5); GRAN % 67.7 % (50.0-68.0); HEMOGLOBIN 9.7 gm/dL (12.0-16.0); LYMPH # 0.4 (1.2-3.4); MEAN CELL VOLUME 84.6 fL (80.0-105.0); MEAN CORPUSCULAR HEMOGLOBIN 26.1 pg (25.0-35.0); MEAN CORPUSCULAR HGB CONC 30.9 g/dl (31.0-37.0); MEAN PLATELET VOLUME 11.3 fl (7.0-11.0); MONO # 0.7 (0.1-0.6); MONO % 15.9 % (1.0-6.0); PLATELET COUNT 185 10^3/uL (120.0-450.0); RBC 3.71 10^6/uL (3.5-6.1); RED CELL DISTRIBUTION WIDTH 16.5 % (11.5-14.5); WHITE BLOOD COUNT 4.2 10^3/ul (4.5-11.0)
--- NOTE | 2017-03-26 08:36 | CP.PCM.PN ---
Subjective - Date & Time of Evaluation Date of Evaluation: 03/26/17 Time of Evaluation: 08:20 - Subjective Subjective: "I feel better" Objective - Vital Signs/Intake and Output Vital Signs (last 24 hours): Temp Pulse Resp BP Pulse Ox 98.8 F 63 14 117/55 L 100 03/25/17 22:33 03/26/17 08:10 03/26/17 08:10 03/26/17 08:00 03/26/17 08:10 Intake and Output: 03/26/17 03/26/17 06:59 18:59 Intake Total 300 Output Total 300 Balance 0 - Medications Medications: Current Medications Acetaminophen (Tylenol 325mg Tab) 650 mg PO Q6H PRN PRN Reason: Pain, Mild (1-3) Amiodarone HCl (Cordarone) 200 mg PO DAILY [facility] Last Admin: 03/25/17 09:55 Dose: 200 mg Atorvastatin Calcium (Lipitor) 80 mg PO DAILY [facility] Last Admin: 03/25/17 09:55 Dose: 80 mg Aztreonam (Azactam 1 Gm) 100 mls @ 100 mls/hr IVPB Q8 [facility] PRN Reason: Protocol Stop: 04/02/17 14:01 Last Admin: 03/26/17 05:15 Dose: 100 mls/hr Levothyroxine Sodium (Synthroid) 125 mcg PO ACB [facility] Last Admin: 03/25/17 06:44 Dose: 125 mcg Lisinopril (Zestril) 2.5 mg PO DAILY [facility] Last Admin: 03/25/17 09:56 Dose: 2.5 mg Ondansetron HCl (Zofran Inj) 4 mg IVP Q6H PRN PRN Reason: Nausea/Vomiting Last Admin: 03/25/17 08:25 Dose: 4 mg Pantoprazole Sodium (Protonix Ec Tab) 40 mg PO 0600 [facility] Last Admin: 03/26/17 05:15 Dose: 40 mg Tramadol HCl (Ultram) 50 mg PO Q6H PRN PRN Reason: Pain, severe (8-10) Vancomycin HCl (Vancocin 25 Mg/Ml (Oral Use)) 250 mg PO QID [facility] PRN Reason: Protocol Stop: 04/02/17 14:01 Last Admin: 03/25/17 21:24 Dose: 250 mg - Labs Labs: 03/26/17 05:20 03/26/17 05:20 PT 14.7 Seconds (9.9-11.8) H 03/26/17 05:20 INR 1.36 (0.93-1.08) H 03/26/17 05:20 APTT 29.6 Seconds (23.7-30.8) 03/25/17 05:10 - Constitutional Appears: Non-toxic - Head Exam Additional comments: Scalp laceration no bleeding reported - Respiratory Exam Respiratory Exam: NORMAL BREATHING PATTERN - Cardiovascular Exam Cardiovascular Exam: REGULAR RHYTHM - GI/Abdominal Exam GI & Abdominal Exam: Normal Bowel Sounds Additional comments: Liquid stools green color as per staff - Extremities Exam Extremities Exam: Normal Inspection - Neurological Exam Neurological Exam: Oriented x3 Assessment and Plan - Assessment and Plan (Free Text) Assessment: Repeat stool for c.diff Check stool guiac Continue antibiotics as per ID GI eval in progress Cardiology:S/p NSTEMI LAD stent Plavix Aspirin as per cardiology History of A.fib Head trauma:Neurology eval in progress Repeat head CT noted Plan: Follow up labs,OOB as tolerated As per ID,NEURO,CARDIOLOGY
--- NOTE | 2017-03-26 10:41 | CP.PCM.PN ---
Subjective - Date & Time of Evaluation Date of Evaluation: 03/26/17 Time of Evaluation: 07:30 - Subjective Subjective: DOING BETTER Objective - Vital Signs/Intake and Output Vital Signs (last 24 hours): Temp Pulse Resp BP Pulse Ox 98.8 F 63 14 117/55 L 100 03/25/17 22:33 03/26/17 08:10 03/26/17 08:10 03/26/17 08:00 03/26/17 08:10 Intake and Output: 03/26/17 03/26/17 06:59 18:59 Intake Total 300 200 Output Total 300 100 Balance 0 100 - Medications Medications: Current Medications Acetaminophen (Tylenol 325mg Tab) 650 mg PO Q6H PRN PRN Reason: Pain, Mild (1-3) Amiodarone HCl (Cordarone) 200 mg PO DAILY [facility] Last Admin: 03/25/17 09:55 Dose: 200 mg Aspirin (Ecotrin) 81 mg PO DAILY [facility] Atorvastatin Calcium (Lipitor) 80 mg PO DAILY [facility] Last Admin: 03/25/17 09:55 Dose: 80 mg Clopidogrel Bisulfate (Plavix) 75 mg PO DAILY [facility] Aztreonam (Azactam 1 Gm) 100 mls @ 100 mls/hr IVPB Q8 [facility] PRN Reason: Protocol Stop: 04/02/17 14:01 Last Admin: 03/26/17 05:15 Dose: 100 mls/hr Levothyroxine Sodium (Synthroid) 125 mcg PO ACB [facility] Last Admin: 03/25/17 06:44 Dose: 125 mcg Lisinopril (Zestril) 2.5 mg PO DAILY [facility] Last Admin: 03/25/17 09:56 Dose: 2.5 mg Ondansetron HCl (Zofran Inj) 4 mg IVP Q6H PRN PRN Reason: Nausea/Vomiting Last Admin: 03/25/17 08:25 Dose: 4 mg Pantoprazole Sodium (Protonix Ec Tab) 40 mg PO 0600 [facility] Last Admin: 03/26/17 05:15 Dose: 40 mg Tramadol HCl (Ultram) 50 mg PO Q6H PRN PRN Reason: Pain, severe (8-10) - Labs Labs: 03/26/17 05:20 03/26/17 05:20 PT 14.7 Seconds (9.9-11.8) H 03/26/17 05:20 INR 1.36 (0.93-1.08) H 03/26/17 05:20 APTT 29.6 Seconds (23.7-30.8) 03/25/17 05:10 - Constitutional Appears: Well - Head Exam Head Exam: ATRAUMATIC, NORMAL INSPECTION, NORMOCEPHALIC - Eye Exam Eye Exam: EOMI, Normal appearance, PERRL Pupil Exam: NORMAL ACCOMODATION, PERRL - ENT Exam ENT Exam: Mucous Membranes Moist, Normal Exam - Neck Exam Neck Exam: Full ROM, Normal Inspection. absent: Lymphadenopathy - Respiratory Exam Respiratory Exam: Clear to Ausculation Bilateral, NORMAL BREATHING PATTERN - Cardiovascular Exam Cardiovascular Exam: REGULAR RHYTHM, +S1, +S2. absent: Murmur - GI/Abdominal Exam GI & Abdominal Exam: Soft, Normal Bowel Sounds. absent: Tenderness - Rectal Exam Rectal Exam: NORMAL INSPECTION - Exam Exam: Circumcision, NORMAL INSPECTION External exam: NORMAL EXTERNAL EXAM Speculum exam: NORMAL SPECULUM EXAM Bimanual exam: NORMAL BIMANUAL EXAM - Extremities Exam Extremities Exam: Full ROM, Normal Capillary Refill, Normal Inspection. absent : Joint Swelling, Pedal Edema - Back Exam Back Exam: NORMAL INSPECTION - Neurological Exam Neurological Exam: Alert, Awake, CN II-XII Intact, Normal Gait, Oriented x3 - Psychiatric Exam Psychiatric exam: Normal Affect, Normal Mood - Skin Skin Exam: Dry, Intact, Normal Color, Warm Assessment and Plan (1) Septic colitis Status: Acute (2) SIRS (systemic inflammatory response syndrome) Status: Acute (3) Bandemia Status: Acute (4) Bandemia Status: Acute - Assessment and Plan (Free Text) Plan: CDIFF NEGATIVE DC VANCO PENDING STOOL CULTS
[2017-03-26 22:54] LABS: BASO # 0.01 K/mm3 (0.0-2.0); BASO % 0.2 % (0.0-3.0); EOS # 0.2 (0.0-0.7); GRAN # 4.38 (1.4-6.5); HEMOGLOBIN 9.5 gm/dL (12.0-16.0); LYMPH # 0.7 (1.2-3.4); LYMPH % 10.9 % (22.0-35.0); MEAN CELL VOLUME 84.4 fL (80.0-105.0); MEAN CORPUSCULAR HEMOGLOBIN 26.4 pg (25.0-35.0); MEAN CORPUSCULAR HGB CONC 31.3 g/dl (31.0-37.0); MEAN PLATELET VOLUME 10.5 fl (7.0-11.0); MONO # 0.8 (0.1-0.6); MONO % 12.9 % (1.0-6.0); PLATELET COUNT 181 10^3/uL (120.0-450.0); RED CELL DISTRIBUTION WIDTH 16.3 % (11.5-14.5)
[2017-03-27] MEDS: Pantoprazole 40 mg EC Tab PO SCH (05:10)
[2017-03-27] MEDS: Aztreonam 1 Gm in NS 100mL 100 ML IVPB SCH ×3 (05:10→21:44)
[2017-03-27 07:19] LABS: BASO # 0.01 K/mm3 (0.0-2.0); BASO % 0.2 % (0.0-3.0); EOS # 0.2 (0.0-0.7); EOS % 3.5 % (1.5-5.0); GRAN # 4.24 (1.4-6.5); GRAN % 75.1 % (50.0-68.0); HEMOGLOBIN 9.4 gm/dL (12.0-16.0); LYMPH # 0.6 (1.2-3.4); LYMPH % 10.4 % (22.0-35.0); MEAN CELL VOLUME 84.3 fL (80.0-105.0); MEAN CORPUSCULAR HEMOGLOBIN 25.9 pg (25.0-35.0); MEAN CORPUSCULAR HGB CONC 30.7 g/dl (31.0-37.0); MEAN PLATELET VOLUME 11.1 fl (7.0-11.0); MONO # 0.6 (0.1-0.6); MONO % 10.8 % (1.0-6.0); PLATELET COUNT 188 10^3/uL (120.0-450.0); RBC 3.63 10^6/uL (3.5-6.1); RED CELL DISTRIBUTION WIDTH 16.4 % (11.5-14.5); WHITE BLOOD COUNT 5.7 10^3/ul (4.5-11.0)
[2017-03-27 07:43] LABS: ALB/GLOB RATIO 1.1 (1.1-1.8); ALBUMIN 2.5 g/dL (3.0-4.8); ALT/SGPT 36 U/L (7-56); AST/SGOT 29 U/L (15-39); BLOOD UREA NITROGEN 13 mg/dL (7-21); CALCIUM 8.3 mg/dL (8.4-10.5); GFR AFRICAN-AMERICAN > 60; GFR NON-AFRICAN AMERICAN > 60
[2017-03-27] MEDS: Levothyroxine 125 MCG TAB PO SCH (08:10)
--- NOTE | 2017-03-27 10:31 | CP.PCM.PN ---
Subjective - Date & Time of Evaluation Date of Evaluation: 03/27/17 Time of Evaluation: 08:00 - Subjective Subjective: WELL NO GI C/O Objective - Vital Signs/Intake and Output Vital Signs (last 24 hours): Temp Pulse Resp BP Pulse Ox 98.2 F 66 20 109/48 L 96 03/27/17 05:41 03/27/17 09:43 03/27/17 05:41 03/27/17 09:43 03/27/17 05:41 Intake and Output: 03/27/17 03/27/17 06:59 18:59 Intake Total 540 Balance 540 - Medications Medications: Current Medications Acetaminophen (Tylenol 325mg Tab) 650 mg PO Q6H PRN PRN Reason: Pain, Mild (1-3) Last Admin: 03/26/17 22:00 Dose: 650 mg Amiodarone HCl (Cordarone) 200 mg PO DAILY [facility] Last Admin: 03/27/17 09:43 Dose: 200 mg Aspirin (Ecotrin) 81 mg PO DAILY [facility] Last Admin: 03/27/17 09:43 Dose: 81 mg Atorvastatin Calcium (Lipitor) 80 mg PO DAILY [facility] Last Admin: 03/27/17 09:41 Dose: 80 mg Clopidogrel Bisulfate (Plavix) 75 mg PO DAILY [facility] Last Admin: 03/27/17 09:42 Dose: 75 mg Aztreonam (Azactam 1 Gm) 100 mls @ 100 mls/hr IVPB Q8 [facility] PRN Reason: Protocol Stop: 04/02/17 14:01 Last Admin: 03/27/17 05:10 Dose: 100 mls/hr Levothyroxine Sodium (Synthroid) 125 mcg PO ACB [facility] Last Admin: 03/27/17 08:10 Dose: 125 mcg Lisinopril (Zestril) 2.5 mg PO DAILY [facility] Last Admin: 03/27/17 09:42 Dose: 2.5 mg Ondansetron HCl (Zofran Inj) 4 mg IVP Q6H PRN PRN Reason: Nausea/Vomiting Last Admin: 03/25/17 08:25 Dose: 4 mg Pantoprazole Sodium (Protonix Ec Tab) 40 mg PO 0600 [facility] Last Admin: 03/27/17 05:10 Dose: 40 mg Tramadol HCl (Ultram) 50 mg PO Q6H PRN PRN Reason: Pain, severe (8-10) - Labs Labs: 03/27/17 07:10 03/27/17 07:10 PT 14.7 Seconds (9.9-11.8) H 03/26/17 05:20 INR 1.36 (0.93-1.08) H 03/26/17 05:20 APTT 29.6 Seconds (23.7-30.8) 03/25/17 05:10 - Constitutional Appears: Well - Head Exam Head Exam: ATRAUMATIC, NORMAL INSPECTION, NORMOCEPHALIC - Eye Exam Eye Exam: EOMI, Normal appearance, PERRL Pupil Exam: NORMAL ACCOMODATION, PERRL - ENT Exam ENT Exam: Mucous Membranes Moist, Normal Exam - Neck Exam Neck Exam: Full ROM, Normal Inspection. absent: Lymphadenopathy - Respiratory Exam Respiratory Exam: Clear to Ausculation Bilateral, NORMAL BREATHING PATTERN - Cardiovascular Exam Cardiovascular Exam: REGULAR RHYTHM, +S1, +S2. absent: Murmur - GI/Abdominal Exam GI & Abdominal Exam: Soft, Normal Bowel Sounds. absent: Tenderness - Rectal Exam Rectal Exam: NORMAL INSPECTION - Exam Exam: Circumcision, NORMAL INSPECTION External exam: NORMAL EXTERNAL EXAM Speculum exam: NORMAL SPECULUM EXAM Bimanual exam: NORMAL BIMANUAL EXAM - Extremities Exam Extremities Exam: Full ROM, Normal Capillary Refill, Normal Inspection. absent : Joint Swelling, Pedal Edema - Back Exam Back Exam: NORMAL INSPECTION - Neurological Exam Neurological Exam: Alert, Awake, CN II-XII Intact, Normal Gait, Oriented x3 - Psychiatric Exam Psychiatric exam: Normal Affect, Normal Mood - Skin Skin Exam: Dry, Intact, Normal Color, Warm Assessment and Plan (1) Septic colitis Status: Acute (2) SIRS (systemic inflammatory response syndrome) Status: Acute (3) Bandemia Status: Acute (4) Bandemia Status: Acute - Assessment and Plan (Free Text) Plan: UPON D/C MAY USE PO FLAYL AWAITING STOOL CULTURES
--- NOTE | 2017-03-27 11:56 | CP.PCM.PN ---
Subjective - Date & Time of Evaluation Date of Evaluation: 03/27/17 Time of Evaluation: 09:25 - Subjective Subjective: I ate a good breakfast and feel better today. Objective - Vital Signs/Intake and Output Vital Signs (last 24 hours): Temp Pulse Resp BP Pulse Ox 98.2 F 57 L 20 109/48 L 96 03/27/17 05:41 03/27/17 10:00 03/27/17 05:41 03/27/17 09:43 03/27/17 05:41 Intake and Output: 03/27/17 03/27/17 06:59 18:59 Intake Total 540 Balance 540 - Medications Medications: Current Medications Acetaminophen (Tylenol 325mg Tab) 650 mg PO Q6H PRN PRN Reason: Pain, Mild (1-3) Last Admin: 03/26/17 22:00 Dose: 650 mg Amiodarone HCl (Cordarone) 200 mg PO DAILY [facility] Last Admin: 03/27/17 09:43 Dose: 200 mg Aspirin (Ecotrin) 81 mg PO DAILY [facility] Last Admin: 03/27/17 09:43 Dose: 81 mg Atorvastatin Calcium (Lipitor) 80 mg PO DAILY [facility] Last Admin: 03/27/17 09:41 Dose: 80 mg Clopidogrel Bisulfate (Plavix) 75 mg PO DAILY [facility] Last Admin: 03/27/17 09:42 Dose: 75 mg Aztreonam (Azactam 1 Gm) 100 mls @ 100 mls/hr IVPB Q8 [facility] PRN Reason: Protocol Stop: 04/02/17 14:01 Last Admin: 03/27/17 05:10 Dose: 100 mls/hr Levothyroxine Sodium (Synthroid) 125 mcg PO ACB [facility] Last Admin: 03/27/17 08:10 Dose: 125 mcg Lisinopril (Zestril) 2.5 mg PO DAILY [facility] Last Admin: 03/27/17 09:42 Dose: 2.5 mg Ondansetron HCl (Zofran Inj) 4 mg IVP Q6H PRN PRN Reason: Nausea/Vomiting Last Admin: 03/25/17 08:25 Dose: 4 mg Pantoprazole Sodium (Protonix Ec Tab) 40 mg PO 0600 [facility] Last Admin: 03/27/17 05:10 Dose: 40 mg Tramadol HCl (Ultram) 50 mg PO Q6H PRN PRN Reason: Pain, severe (8-10) - Labs Labs: 03/27/17 07:10 03/27/17 07:10 PT 14.7 Seconds (9.9-11.8) H 03/26/17 05:20 INR 1.36 (0.93-1.08) H 03/26/17 05:20 APTT 29.6 Seconds (23.7-30.8) 03/25/17 05:10 - Constitutional Appears: Non-toxic - Head Exam Additional comments: Scalp lesion no bleeding reported - Neck Exam Neck Exam: Full ROM - Respiratory Exam Respiratory Exam: Clear to Ausculation Bilateral, NORMAL BREATHING PATTERN - Cardiovascular Exam Cardiovascular Exam: REGULAR RHYTHM - GI/Abdominal Exam GI & Abdominal Exam: Normal Bowel Sounds Additional comments: Reports stool more formed - Extremities Exam Extremities Exam: Normal Inspection - Neurological Exam Neurological Exam: Oriented x3 Assessment and Plan - Assessment and Plan (Free Text) Assessment: Neurologic CT head reported no acute findings/f/u with neuro requested GI Off vancomycin,as per GI/ID PT requested
[2017-03-27 22:15] LABS: BASO # 0.02 K/mm3 (0.0-2.0); BASO % 0.3 % (0.0-3.0); EOS # 0.1 (0.0-0.7); EOS % 1.9 % (1.5-5.0); GRAN # 5.62 (1.4-6.5); GRAN % 80.1 % (50.0-68.0); HEMOGLOBIN 9.7 gm/dL (12.0-16.0); LYMPH # 0.6 (1.2-3.4); LYMPH % 8.7 % (22.0-35.0); MEAN CORPUSCULAR HEMOGLOBIN 26.3 pg (25.0-35.0); MEAN CORPUSCULAR HGB CONC 31.3 g/dl (31.0-37.0); MONO # 0.6 (0.1-0.6); PLATELET COUNT 198 10^3/uL (120.0-450.0); RBC 3.69 10^6/uL (3.5-6.1); RED CELL DISTRIBUTION WIDTH 16.1 % (11.5-14.5)
[2017-03-28 05:37] VITALS: O2SAT 98
[2017-03-28] MEDS: Pantoprazole 40 mg EC Tab PO SCH (06:24)
[2017-03-28] MEDS: Aztreonam 1 Gm in NS 100mL 100 ML IVPB SCH (06:28)
[2017-03-28] MEDS: Levothyroxine 125 MCG TAB PO SCH (07:56)
[2017-03-28 08:14] LABS: ALBUMIN 2.4 g/dL (3.0-4.8); ALT/SGPT 33 U/L (7-56); AST/SGOT 21 U/L (15-39); BLOOD UREA NITROGEN 13 mg/dL (7-21); CALCIUM 8.2 mg/dL (8.4-10.5); GFR AFRICAN-AMERICAN > 60; GFR NON-AFRICAN AMERICAN > 60
--- NOTE | 2017-03-28 09:04 | CP.PCM.PN ---
Subjective - Date & Time of Evaluation Date of Evaluation: 03/28/17 Time of Evaluation: 07:00 - Subjective Subjective: Stable on 2R. No CP or SOB. V/S noted. S. Alfredo 50 -60's PE: Lungs: clear Cor.: S1S2 Abd.: soft Ext. no edema Neuro.; alert Stool + OB BC x2 NG at [address]'s noted Labs 03/26 and 03/27 noted Objective - Vital Signs/Intake and Output Vital Signs (last 24 hours): Temp Pulse Resp BP Pulse Ox 97.8 F 57 L 20 111/59 L 98 03/28/17 05:37 03/28/17 05:37 03/28/17 05:37 03/28/17 05:37 03/28/17 00:01 Intake and Output: 03/28/17 03/28/17 06:59 18:59 Intake Total 420 Output Total 4 Balance 416 - Medications Medications: Current Medications Acetaminophen (Tylenol 325mg Tab) 650 mg PO Q6H PRN PRN Reason: Pain, Mild (1-3) Last Admin: 03/26/17 22:00 Dose: 650 mg Amiodarone HCl (Cordarone) 200 mg PO DAILY [facility] Last Admin: 03/27/17 09:43 Dose: 200 mg Aspirin (Ecotrin) 81 mg PO DAILY [facility] Last Admin: 03/27/17 09:43 Dose: 81 mg Atorvastatin Calcium (Lipitor) 80 mg PO DAILY [facility] Last Admin: 03/27/17 09:41 Dose: 80 mg Clopidogrel Bisulfate (Plavix) 75 mg PO DAILY [facility] Last Admin: 03/27/17 09:42 Dose: 75 mg Aztreonam (Azactam 1 Gm) 100 mls @ 100 mls/hr IVPB Q8 [facility] PRN Reason: Protocol Stop: 04/02/17 14:01 Last Admin: 03/28/17 06:28 Dose: 100 mls/hr Levothyroxine Sodium (Synthroid) 125 mcg PO ACB [facility] Last Admin: 03/28/17 07:56 Dose: 125 mcg Lisinopril (Zestril) 2.5 mg PO DAILY [facility] Last Admin: 03/27/17 09:42 Dose: 2.5 mg Ondansetron HCl (Zofran Inj) 4 mg IVP Q6H PRN PRN Reason: Nausea/Vomiting Last Admin: 03/25/17 08:25 Dose: 4 mg Pantoprazole Sodium (Protonix Ec Tab) 40 mg PO 0600 [facility] Last Admin: 03/28/17 06:24 Dose: 40 mg Tramadol HCl (Ultram) 50 mg PO Q6H PRN PRN Reason: Pain, severe (8-10) - Labs Labs: 03/27/17 21:55 03/28/17 07:15 PT 14.7 Seconds (9.9-11.8) H 03/26/17 05:20 INR 1.36 (0.93-1.08) H 03/26/17 05:20 APTT 29.6 Seconds (23.7-30.8) 03/25/17 05:10 Assessment and Plan - Assessment and Plan (Free Text) Assessment: Fall at home. Probably mech. fall. Head trauma, occipital lac., VANEGAS S/P acute ant. M with LAD PCI 1 week ago at [facility] PA[facility], not on warfarin b/o GIB COPD RBBB Diabetes S/P subtotal thyroidectomy S/P hysterectomy Colitis Plan: Continue ASA and Plavix (for recent stent) and monitor H/H. If sign GIB and drop in H/H may have to d/c ASA and or Plavix but this would be risky given recent PCI Resume metoprolol ER 12.5 daily (recent ant DC) Continue cardiac meds: amiod.,Lipitor, lisinopril Monitor: labs, I/O, sats., neuro. signs, stool for OB, INR's, etc. Case D/W Dr. Rivera today TCU Eval. Will follow
[2017-03-28 09:08] LABS: HEMOGLOBIN 9.6 gm/dL (12.0-16.0); MEAN CORPUSCULAR HEMOGLOBIN 26.5 pg (25.0-35.0); MEAN CORPUSCULAR HGB CONC 31.6 g/dl (31.0-37.0); MEAN PLATELET VOLUME 11.5 fl (7.0-11.0); PLATELET COUNT 189 10^3/uL (120.0-450.0); RBC 3.62 10^6/uL (3.5-6.1); RED CELL DISTRIBUTION WIDTH 16.3 % (11.5-14.5); WHITE BLOOD COUNT 5.9 10^3/ul (4.5-11.0)
[2017-03-28 09:09] LABS: BASO # 0.02 K/mm3 (0.0-2.0); BASO % 0.3 % (0.0-3.0); EOS # 0.2 (0.0-0.7); EOS % 2.7 % (1.5-5.0); GRAN # 4.34 (1.4-6.5); GRAN % 73.1 % (50.0-68.0); LYMPH # 0.8 (1.2-3.4); LYMPH % 13.5 % (22.0-35.0); MONO # 0.6 (0.1-0.6); MONO % 10.4 % (1.0-6.0)
--- NOTE | 2017-03-28 09:58 | CP.PCM.PN ---
Subjective - Date & Time of Evaluation Date of Evaluation: 03/28/17 Time of Evaluation: 08:35 - Subjective Subjective: WEAK Objective - Vital Signs/Intake and Output Vital Signs (last 24 hours): Temp Pulse Resp BP Pulse Ox 97.8 F 61 20 106/54 L 98 03/28/17 05:37 03/28/17 09:26 03/28/17 05:37 03/28/17 09:26 03/28/17 00:01 Intake and Output: 03/28/17 03/28/17 06:59 18:59 Intake Total 420 Output Total 4 Balance 416 - Medications Medications: Current Medications Acetaminophen (Tylenol 325mg Tab) 650 mg PO Q6H PRN PRN Reason: Pain, Mild (1-3) Last Admin: 03/26/17 22:00 Dose: 650 mg Amiodarone HCl (Cordarone) 200 mg PO DAILY [facility] Last Admin: 03/28/17 09:24 Dose: 200 mg Aspirin (Ecotrin) 81 mg PO DAILY [facility] Last Admin: 03/28/17 09:25 Dose: 81 mg Atorvastatin Calcium (Lipitor) 80 mg PO DAILY [facility] Last Admin: 03/28/17 09:25 Dose: 80 mg Clopidogrel Bisulfate (Plavix) 75 mg PO DAILY [facility] Last Admin: 03/28/17 09:25 Dose: 75 mg Levothyroxine Sodium (Synthroid) 125 mcg PO ACB [facility] Last Admin: 03/28/17 07:56 Dose: 125 mcg Lisinopril (Zestril) 2.5 mg PO DAILY [facility] Last Admin: 03/28/17 09:26 Dose: 2.5 mg Metoprolol Succinate (Toprol Xl) 12.5 mg PO BRK [facility] Last Admin: 03/28/17 09:25 Dose: 12.5 mg Ondansetron HCl (Zofran Inj) 4 mg IVP Q6H PRN PRN Reason: Nausea/Vomiting Last Admin: 03/25/17 08:25 Dose: 4 mg Pantoprazole Sodium (Protonix Ec Tab) 40 mg PO 0600 [facility] Last Admin: 03/28/17 06:24 Dose: 40 mg Tramadol HCl (Ultram) 50 mg PO Q6H PRN PRN Reason: Pain, severe (8-10) - Labs Labs: 03/28/17 08:40 03/28/17 07:15 PT 14.7 Seconds (9.9-11.8) H 03/26/17 05:20 INR 1.36 (0.93-1.08) H 03/26/17 05:20 APTT 29.6 Seconds (23.7-30.8) 03/25/17 05:10 - Constitutional Appears: Well - Head Exam Head Exam: ATRAUMATIC, NORMAL INSPECTION, NORMOCEPHALIC - Eye Exam Eye Exam: EOMI, Normal appearance, PERRL Pupil Exam: NORMAL ACCOMODATION, PERRL - ENT Exam ENT Exam: Mucous Membranes Moist, Normal Exam - Neck Exam Neck Exam: Full ROM, Normal Inspection. absent: Lymphadenopathy - Respiratory Exam Respiratory Exam: Clear to Ausculation Bilateral, NORMAL BREATHING PATTERN - Cardiovascular Exam Cardiovascular Exam: REGULAR RHYTHM, +S1, +S2. absent: Murmur - GI/Abdominal Exam GI & Abdominal Exam: Soft, Normal Bowel Sounds. absent: Tenderness - Rectal Exam Rectal Exam: NORMAL INSPECTION - Exam Exam: Circumcision, NORMAL INSPECTION External exam: NORMAL EXTERNAL EXAM Speculum exam: NORMAL SPECULUM EXAM Bimanual exam: NORMAL BIMANUAL EXAM - Extremities Exam Extremities Exam: Full ROM, Normal Capillary Refill, Normal Inspection. absent : Joint Swelling, Pedal Edema - Back Exam Back Exam: NORMAL INSPECTION - Neurological Exam Neurological Exam: Alert, Awake, CN II-XII Intact, Normal Gait, Oriented x3 - Psychiatric Exam Psychiatric exam: Normal Affect, Normal Mood - Skin Skin Exam: Dry, Intact, Normal Color, Warm Assessment and Plan (1) Septic colitis Status: Acute (2) SIRS (systemic inflammatory response syndrome) Status: Acute (3) Bandemia Status: Acute (4) Bandemia Status: Acute - Assessment and Plan (Free Text) Plan: DC AZACTUM PO FLAGYL DAY#4 OF 7 AWAIITNG STOOL CULTURES
[2017-03-28] MEDS ORDERED: Metoprolol Succinate 25 mg XL Tab PO SCH (10:00)
--- NOTE | 2017-03-28 10:05 | CP.PCM.PN ---
Subjective - Date & Time of Evaluation Date of Evaluation: 03/28/17 Time of Evaluation: 09:40 - Subjective Subjective: Neurology progress note for Dr Hernandez. Patient seating comfortably on the chair. Patient states she is feeling much better. Patient states the head pain has resolved. Patient denies headache, denies n/v/d. Denies fever or chills. Denies cp or sob. Objective - Vital Signs/Intake and Output Vital Signs (last 24 hours): Temp Pulse Resp BP Pulse Ox 97.8 F 61 20 106/54 L 98 03/28/17 05:37 03/28/17 09:26 03/28/17 05:37 03/28/17 09:26 03/28/17 00:01 Intake and Output: 03/28/17 03/28/17 06:59 18:59 Intake Total 420 Output Total 4 Balance 416 - Medications Medications: Current Medications Acetaminophen (Tylenol 325mg Tab) 650 mg PO Q6H PRN PRN Reason: Pain, Mild (1-3) Last Admin: 03/26/17 22:00 Dose: 650 mg Amiodarone HCl (Cordarone) 200 mg PO DAILY [facility] Last Admin: 03/28/17 09:24 Dose: 200 mg Aspirin (Ecotrin) 81 mg PO DAILY [facility] Last Admin: 03/28/17 09:25 Dose: 81 mg Atorvastatin Calcium (Lipitor) 80 mg PO DAILY [facility] Last Admin: 03/28/17 09:25 Dose: 80 mg Clopidogrel Bisulfate (Plavix) 75 mg PO DAILY [facility] Last Admin: 03/28/17 09:25 Dose: 75 mg Levothyroxine Sodium (Synthroid) 125 mcg PO ACB [facility] Last Admin: 03/28/17 07:56 Dose: 125 mcg Lisinopril (Zestril) 2.5 mg PO DAILY [facility] Last Admin: 03/28/17 09:26 Dose: 2.5 mg Metoprolol Succinate (Toprol Xl) 12.5 mg PO BRK [facility] Last Admin: 03/28/17 09:25 Dose: 12.5 mg Ondansetron HCl (Zofran Inj) 4 mg IVP Q6H PRN PRN Reason: Nausea/Vomiting Last Admin: 03/25/17 08:25 Dose: 4 mg Pantoprazole Sodium (Protonix Ec Tab) 40 mg PO 0600 [facility] Last Admin: 03/28/17 06:24 Dose: 40 mg Tramadol HCl (Ultram) 50 mg PO Q6H PRN PRN Reason: Pain, severe (8-10) - Labs Labs: 03/28/17 08:40 03/28/17 07:15 PT 14.7 Seconds (9.9-11.8) H 03/26/17 05:20 INR 1.36 (0.93-1.08) H 03/26/17 05:20 APTT 29.6 Seconds (23.7-30.8) 03/25/17 05:10 - Constitutional Appears: Well, Non-toxic, No Acute Distress, Cachectic - Head Exam Head Exam: NORMOCEPHALIC. absent: ATRAUMATIC (occipital hematoma and laceration with suturing in place. no drainage. ) - Eye Exam Eye Exam: EOMI, Normal appearance, PERRL Pupil Exam: NORMAL ACCOMODATION, PERRL - ENT Exam ENT Exam: Mucous Membranes Moist, Normal Exam - Neck Exam Neck Exam: Full ROM, Normal Inspection. absent: Meningismus, Tenderness - Respiratory Exam Respiratory Exam: Clear to Ausculation Bilateral, NORMAL BREATHING PATTERN. absent: Rales, Rhonchi, Wheezes, Respiratory Distress, Stridor - Cardiovascular Exam Cardiovascular Exam: REGULAR RHYTHM, RRR, +S1, +S2 - GI/Abdominal Exam GI & Abdominal Exam: Soft, Normal Bowel Sounds. absent: Tenderness - Extremities Exam Extremities Exam: Full ROM, Normal Capillary Refill, Normal Inspection. absent : Joint Swelling, Pedal Edema, Tenderness - Back Exam Back Exam: NORMAL INSPECTION. absent: muscle spasm, rash noted, tenderness, vertebral tenderness - Neurological Exam Neurological Exam: Alert, Awake, CN II-XII Intact, Oriented x3, Reflexes Normal. absent: Motor Sensory Deficit, Normal Gait (unstable.) Neuro motor strength exam: Left Upper Extremity: 5, Right Upper Extremity: 5, Left Lower Extremity: 5, Right Lower Extremity: 5 - Psychiatric Exam Psychiatric exam: Normal Affect, Normal Mood - Skin Skin Exam: Dry, Intact, Warm Assessment and Plan - Assessment and Plan (Free Text) Assessment: Patient is a 86 y/o with PMH of hypothyroidism, paroxysmal atrial fibrillation, CAD (s/p LAD stent placed 1 week ago at [facility] chronic colitis and COPD, who slipped and fell backwards while climbing stairs inside her home. Patient had throbbing headache on presentation which has since resolved. Patient also had CT on presentation with no acute ischemic changes. Patient also had a repeat CT on 03/25 with no changes. Plan: 1) Continue plavix and asa 2) PT for gait instability 3) wound care as per primary 4) Patient with labile hypotension, monitor BP and consider adjusting BP meds 5) Patient on synthroid for hypothyroidism. 6) On amiodorone and lopressor for Afib, patient not on anticoags.
[2017-03-28 12:06] VITALS: BP 104/59; RESP 16; TEMP 97.9
--- NOTE | 2017-03-28 12:35 | CP.PCM.PN ---
<Rosa Isela Fields - Last Filed: 03/28/17 13:08> Subjective - Date & Time of Evaluation Date of Evaluation: 03/28/17 Time of Evaluation: 09:10 - Subjective Subjective: Seen and examined at the bedside earlier today. The chart was reviewed. Adequate bed to chair, tolerated breakfast, diarrhea is much improved, denies any melena or bright red blood per rectum. No complaints of any nausea , vomiting, shortness of breath ,chest pain or abdominal pain. Positive guaiac noted, no active bleeding Objective - Vital Signs/Intake and Output Vital Signs (last 24 hours): Temp Pulse Resp BP Pulse Ox 97.9 F 55 L 16 104/59 L 98 03/28/17 12:00 03/28/17 12:00 03/28/17 12:00 03/28/17 12:00 03/28/17 00:01 Intake and Output: 03/28/17 03/28/17 06:59 18:59 Intake Total 420 Output Total 4 Balance 416 - Medications Medications: Current Medications Acetaminophen (Tylenol 325mg Tab) 650 mg PO Q6H PRN PRN Reason: Pain, Mild (1-3) Last Admin: 03/26/17 22:00 Dose: 650 mg Amiodarone HCl (Cordarone) 200 mg PO DAILY [facility] Last Admin: 03/28/17 09:24 Dose: 200 mg Aspirin (Ecotrin) 81 mg PO DAILY [facility] Last Admin: 03/28/17 09:25 Dose: 81 mg Atorvastatin Calcium (Lipitor) 80 mg PO DAILY [facility] Last Admin: 03/28/17 09:25 Dose: 80 mg Clopidogrel Bisulfate (Plavix) 75 mg PO DAILY [facility] Last Admin: 03/28/17 09:25 Dose: 75 mg Levothyroxine Sodium (Synthroid) 125 mcg PO ACB [facility] Last Admin: 03/28/17 07:56 Dose: 125 mcg Lisinopril (Zestril) 2.5 mg PO DAILY [facility] Last Admin: 03/28/17 09:26 Dose: 2.5 mg Metoprolol Succinate (Toprol Xl) 12.5 mg PO BRK [facility] Last Admin: 03/28/17 09:25 Dose: 12.5 mg Ondansetron HCl (Zofran Inj) 4 mg IVP Q6H PRN PRN Reason: Nausea/Vomiting Last Admin: 03/25/17 08:25 Dose: 4 mg Pantoprazole Sodium (Protonix Ec Tab) 40 mg PO 0600 [facility] Last Admin: 03/28/17 06:24 Dose: 40 mg Tramadol HCl (Ultram) 50 mg PO Q6H PRN PRN Reason: Pain, severe (8-10) - Labs Labs: 03/28/17 08:40 03/28/17 07:15 PT 14.7 Seconds (9.9-11.8) H 03/26/17 05:20 INR 1.36 (0.93-1.08) H 03/26/17 05:20 APTT 29.6 Seconds (23.7-30.8) 03/25/17 05:10 - Constitutional Appears: No Acute Distress - Head Exam Head Exam: NORMAL INSPECTION - Eye Exam Eye Exam: Normal appearance. absent: Scleral icterus - Neck Exam Neck Exam: Normal Inspection - Respiratory Exam Respiratory Exam: Clear to Ausculation Bilateral, NORMAL BREATHING PATTERN. absent: Respiratory Distress - Cardiovascular Exam Cardiovascular Exam: +S1, +S2 - GI/Abdominal Exam GI & Abdominal Exam: Soft, Normal Bowel Sounds. absent: Guarding, Tenderness, Rebound - Extremities Exam Extremities Exam: absent: Calf Tenderness, Pedal Edema - Neurological Exam Neurological Exam: Alert, Awake, Oriented x3 - Skin Skin Exam: Dry, Warm Assessment and Plan - Assessment and Plan (Free Text) Assessment: Assessment: Status post fall Diarrhea, CT scan negative no acute findings History of Crohn's disease Anemia, h/h steady S/P MD, Cardiac cath, stent Plan: Continue diet as tolerated Continue PPI On aspirin and Plavix On amiodarone eval for TCU Monitor H&H, patient guaiac positive, no no overt GI bleed, status post recent stent on anticoagulants, will continue to monitor closely, discussed with Dr. Rivera. Seen and discussed with Dr. Massey. <Susan Massey V - Last Filed: 03/29/17 00:01> Objective - Vital Signs/Intake and Output Vital Signs (last 24 hours): Temp Pulse Resp BP Pulse Ox 97.9 F 54 L 16 104/59 L 98 03/28/17 12:00 03/28/17 14:00 03/28/17 12:00 03/28/17 12:00 03/28/17 00:01 Intake and Output: 03/28/17 03/29/17 18:59 06:59 Intake Total 400 Output Total 750 Balance -350 - Labs Labs: 03/28/17 08:40 03/28/17 07:15 PT 14.7 Seconds (9.9-11.8) H 03/26/17 05:20 INR 1.36 (0.93-1.08) H 03/26/17 05:20 APTT 29.6 Seconds (23.7-30.8) 03/25/17 05:10 Attending/Attestation - Attestation I have personally seen and examined this patient.: Yes I have fully participated in the care of the patient.: Yes I have reviewed all pertinent clinical information, including history, physical exam and plan: Yes Notes (Text): this
--- NOTE | 2017-03-28 13:08 | CP.PCM.PN ---
Subjective - Date & Time of Evaluation Date of Evaluation: 03/27/17 - Subjective Subjective: th Objective - Vital Signs/Intake and Output Vital Signs (last 24 hours): Temp Pulse Resp BP Pulse Ox 98.1 F 58 L 19 96/47 L 96 03/27/17 17:34 03/27/17 21:15 03/27/17 17:34 03/27/17 17:34 03/27/17 05:41 - Medications Medications: Current Medications Acetaminophen (Tylenol 325mg Tab) 650 mg PO Q6H PRN PRN Reason: Pain, Mild (1-3) Last Admin: 03/26/17 22:00 Dose: 650 mg Amiodarone HCl (Cordarone) 200 mg PO DAILY [facility] Last Admin: 03/27/17 09:43 Dose: 200 mg Aspirin (Ecotrin) 81 mg PO DAILY [facility] Last Admin: 03/27/17 09:43 Dose: 81 mg Atorvastatin Calcium (Lipitor) 80 mg PO DAILY [facility] Last Admin: 03/27/17 09:41 Dose: 80 mg Clopidogrel Bisulfate (Plavix) 75 mg PO DAILY [facility] Last Admin: 03/27/17 09:42 Dose: 75 mg Aztreonam (Azactam 1 Gm) 100 mls @ 100 mls/hr IVPB Q8 [facility] PRN Reason: Protocol Stop: 04/02/17 14:01 Last Admin: 03/27/17 21:44 Dose: 100 mls/hr Levothyroxine Sodium (Synthroid) 125 mcg PO ACB [facility] Last Admin: 03/27/17 08:10 Dose: 125 mcg Lisinopril (Zestril) 2.5 mg PO DAILY [facility] Last Admin: 03/27/17 09:42 Dose: 2.5 mg Ondansetron HCl (Zofran Inj) 4 mg IVP Q6H PRN PRN Reason: Nausea/Vomiting Last Admin: 03/25/17 08:25 Dose: 4 mg Pantoprazole Sodium (Protonix Ec Tab) 40 mg PO 0600 [facility] Last Admin: 03/27/17 05:10 Dose: 40 mg Tramadol HCl (Ultram) 50 mg PO Q6H PRN PRN Reason: Pain, severe (8-10) - Labs Labs: 03/27/17 21:55 03/27/17 07:10 PT 14.7 Seconds (9.9-11.8) H 07/01/17 05:20 INR 1.36 (0.93-1.08) H 03/26/17 05:20 APTT 29.6 Seconds (23.7-30.8) 03/25/17 05:10 Assessment and Plan - Assessment and Plan (Free Text) Plan: th
--- NOTE | 2017-03-28 13:09 | CP.PCM.CON ---
History of Present Illness - History of Present Illness History of Present Illness: th Past Patient History - Infectious Disease Hx of Infectious Diseases: None - Past Medical History & Family History Past Medical History?: Yes - Past Social History Smoking Status: Never Smoked - CARDIAC Hx Hypercholesterolemia: Yes - PULMONARY Other/Comment: ble variscosities - HEENT Hx HEENT Problems: Yes ("runny nose" at times) - ENDOCRINE/METABOLIC Other/Comment: Diabetes with no medication - MUSCULOSKELETAL/RHEUMATOLOGICAL Hx Falls: Yes - GASTROINTESTINAL Other/Comment: ulcerative colitis,colectomy - PSYCHIATRIC Hx Substance Use: No - SURGICAL HISTORY Hx Hysterectomy: Yes Other/Comment: thyroidectomy - ANESTHESIA Hx Anesthesia: Yes Hx Anesthesia Reactions: No Hx Malignant Hyperthermia: No Meds Allergies/Adverse Reactions: Allergies Allergy/AdvReac Type Severity Reaction Status Date / Time pcn Allergy ITCHING Uncoded 03/16/17 07:51 - Medications Medications: Current Medications Acetaminophen (Tylenol 325mg Tab) 650 mg PO Q6H PRN PRN Reason: Pain, Mild (1-3) Amiodarone HCl (Cordarone) 200 mg PO DAILY [facility] Last Admin: 03/25/17 09:55 Dose: 200 mg Atorvastatin Calcium (Lipitor) 80 mg PO DAILY [facility] Last Admin: 03/25/17 09:55 Dose: 80 mg Aztreonam (Azactam 1 Gm) 100 mls @ 100 mls/hr IVPB Q8 [facility] PRN Reason: Protocol Stop: 04/02/17 14:01 Last Admin: 03/25/17 22:20 Dose: 100 mls/hr Levothyroxine Sodium (Synthroid) 125 mcg PO ACB [facility] Last Admin: 03/25/17 06:44 Dose: 125 mcg Lisinopril (Zestril) 2.5 mg PO DAILY [facility] Last Admin: 03/25/17 09:56 Dose: 2.5 mg Ondansetron HCl (Zofran Inj) 4 mg IVP Q6H PRN PRN Reason: Nausea/Vomiting Last Admin: 03/25/17 08:25 Dose: 4 mg Pantoprazole Sodium (Protonix Ec Tab) 40 mg PO 0600 [facility] Last Admin: 03/25/17 06:44 Dose: 40 mg Tramadol HCl (Ultram) 50 mg PO Q6H PRN PRN Reason: Pain, severe (8-10) Vancomycin HCl (Vancocin 25 Mg/Ml (Oral Use)) 250 mg PO QID [facility] PRN Reason: Protocol Stop: 04/02/17 14:01 Last Admin: 03/25/17 21:24 Dose: 250 mg Results - Vital Signs Recent Vital Signs: Last Vital Signs Temp 98.8 F 03/25/17 22:33 Pulse 63 03/25/17 22:20 Resp 14 03/25/17 22:20 BP 95/37 L 03/25/17 22:00 Pulse Ox 100 03/25/17 22:20 - Labs Result Diagrams: 03/25/17 22:15 03/25/17 05:10 Labs: Laboratory Results - last 24 hr 03/25/17 03/25/17 03/25/17 05:10 05:10 05:10 WBC 7.6 RBC 3.98 Hgb 10.5 L Hct 32.7 L MCV 82.2 MCH 26.4 MCHC 32.1 RDW 15.9 H Plt Count 191 MPV 11.3 H Gran % Lymph % (Auto) [place] % (Auto) Eos % (Auto) Baso % (Auto) Gran # Lymph # [place] # Eos # Baso # Neutrophils % (Manual) 81 H Band Neutrophils % 15 H* Lymphocytes % (Manual) 2 L Monocytes % (Manual) 2 Platelet Evaluation Normal APTT 29.6 Sodium 135 Potassium 4.5 Chloride 105 Carbon Dioxide 26 Anion Gap 9 L BUN 13 Creatinine 0.7 Est GFR ( Amer) > 60 Est GFR (Non-Af Amer) > 60 POC Glucose (mg/dL) Random Glucose 162 H Calcium 8.8 Phosphorus 3.3 Magnesium 1.8 Total Bilirubin 0.7 AST 32 ALT 43 Alkaline Phosphatase 84 Total Protein 5.5 L Albumin 2.8 L Globulin 2.7 Albumin/Globulin Ratio 1.0 L Vitamin B12 893 Free T4 TSH 3rd Generation 03/25/17 03/25/17 03/25/17 05:10 16:49 21:28 WBC RBC Hgb Hct MCV MCH MCHC RDW Plt Count MPV Gran % Lymph % (Auto) [place] % (Auto) Eos % (Auto) Baso % (Auto) Gran # Lymph # [place] # Eos # Baso # Neutrophils % (Manual) Band Neutrophils % Lymphocytes % (Manual) Monocytes % (Manual) Platelet Evaluation APTT Sodium Potassium Chloride Carbon Dioxide Anion Gap BUN Creatinine Est GFR ( Amer) Est GFR (Non-Af Amer) POC Glucose (mg/dL) 127 H 223 H Random Glucose Calcium Phosphorus Magnesium Total Bilirubin AST ALT Alkaline Phosphatase Total Protein Albumin Globulin Albumin/Globulin Ratio Vitamin B12 Free T4 1.39 TSH 3rd Generation 3.40 03/25/17 22:15 WBC 5.2 D RBC 3.58 Hgb 9.3 L Hct 30.2 L MCV 84.4 MCH 26.0 MCHC 30.8 L RDW 16.3 H Plt Count 184 MPV 11.3 H Gran % 79.3 H Lymph % (Auto) 8.9 L [place] % (Auto) 8.5 H Eos % (Auto) 2.9 Baso % (Auto) 0.4 Gran # 4.09 Lymph # 0.5 L [place] # 0.4 Eos # 0.2 Baso # 0.02 Neutrophils % (Manual) Band Neutrophils % Lymphocytes % (Manual) Monocytes % (Manual) Platelet Evaluation APTT Sodium Potassium Chloride Carbon Dioxide Anion Gap BUN Creatinine Est GFR ( Amer) Est GFR (Non-Af Amer) POC Glucose (mg/dL) Random Glucose Calcium Phosphorus Magnesium Total Bilirubin AST ALT Alkaline Phosphatase Total Protein Albumin Globulin Albumin/Globulin Ratio Vitamin B12 Free T4 TSH 3rd Generation Assessment & Plan - Assessment and Plan (Free Text) Plan: thi
[2017-03-28 14:37] VITALS: PULSE 54
== END 2017-03-28 15:30 | DRG 605 ==
LOC: ED 19:53 → ERH 20:35 → CCU 23:23 → 2RNO 03-26 21:35
PROVIDERS: ADMIT Internal Medicine; ATTEND Internal Medicine
PROC: 0HQ0XZZ Repair Scalp Skin, External Approach (ICD-10-PCS; principal; 2017-03-24)
PROC: 3E0234Z Introduction of Serum, Toxoid and Vaccine into Muscle, Percutaneous Approach (ICD-10-PCS; 2017-03-24)
DX: S01.01XA Laceration without foreign body of scalp, initial encounter (principal); K50.90 Crohn's disease, unspecified, without complications; R65.10 Systemic inflammatory response syndrome (SIRS) of non-infectious origin without acute organ dysfunction; I48.0 Paroxysmal atrial fibrillation; K51.90 Ulcerative colitis, unspecified, without complications; J44.9 Chronic obstructive pulmonary disease, unspecified; A09 Infectious gastroenteritis and colitis, unspecified; W10.9XXA Fall (on) (from) unspecified stairs and steps, initial encounter; E11.9 Type 2 diabetes mellitus without complications; D64.9 Anemia, unspecified; E89.0 Postprocedural hypothyroidism; D72.825 Bandemia; I25.2 Old myocardial infarction; I45.10 Unspecified right bundle-branch block; S00.03XA Contusion of scalp, initial encounter; Y92.009 Unspecified place in unspecified non-institutional (private) residence as the place of occurrence of the external cause; Z88.0 Allergy status to penicillin; Z79.82 Long term (current) use of aspirin; Z79.02 Long term (current) use of antithrombotics/antiplatelets; Z79.899 Other long term (current) drug therapy; Z90.710 Acquired absence of both cervix and uterus; Z95.5 Presence of coronary angioplasty implant and graft; Y93.01 Activity, walking, marching and hiking; E78.00 Pure hypercholesterolemia, unspecified; I25.10 Atherosclerotic heart disease of native coronary artery without angina pectoris; Z90.49 Acquired absence of other specified parts of digestive tract; Z85.850 Personal history of malignant neoplasm of thyroid; R40.2412 Glasgow coma scale score 13-15, at arrival to emergency department; Z23 Encounter for immunization

== ENCOUNTER 2017-03-28 15:40 | Inpatient (IN) | payer OTHER, MEDICARE ==
[2017-03-28 17:00] VITALS: BMI 19.4
[2017-03-28] MEDS ORDERED: Pneumococcal 23-Valent Vaccine IM ONE (17:13)
[2017-03-28] MEDS ORDERED: Insulin Regular 1 UNITS/0.01 ML ML SC STA (19:26)
[2017-03-28] MEDS ORDERED: Insulin Reg-LOW-Coverage SC SCH (22:00)
[2017-03-28] MEDS: Insulin Reg-LOW-Coverage SC SCH (22:06)
[2017-03-29] MEDS: Levothyroxine 125 MCG TAB PO SCH ×2 (06:02→11:25)
[2017-03-29] MEDS: Pantoprazole 40 mg EC Tab PO SCH (06:02)
[2017-03-29] MEDS: Insulin Reg-LOW-Coverage SC SCH ×4 (06:44→21:49)
[2017-03-29] MEDS: Metoprolol Succinate 25 mg XL Tab PO SCH (08:08)
--- NOTE | 2017-03-29 09:54 | CP.PCM.PN ---
Subjective - Date & Time of Evaluation Date of Evaluation: 03/29/17 Time of Evaluation: 09:00 - Subjective Subjective: Seen for followup on the transitional care unit. Feeling better. Has had no lightheadedness. Remains weak. Participating in rehabilitation. Denies any chest pain or exertional dyspnea. Objective - Vital Signs/Intake and Output Vital Signs (last 24 hours): Temp Pulse Resp BP Pulse Ox 97.2 F L 62 18 100/62 03/28/17 16:59 03/29/17 08:08 03/28/17 16:59 03/29/17 08:08 - Medications Medications: Current Medications Acetaminophen (Tylenol 325mg Tab) 650 mg PO Q6H PRN PRN Reason: Pain, Mild (1-3) Amiodarone HCl (Cordarone) 200 mg PO DAILY [facility] Aspirin (Aspirin Chewable) 81 mg PO DAILY [facility] PRN Reason: Protocol Atorvastatin Calcium (Lipitor) 80 mg PO DAILY [facility] PRN Reason: Protocol Clopidogrel Bisulfate (Plavix) 75 mg PO DAILY [facility] PRN Reason: Protocol Insulin Human Regular (Humulin R Low) 0 units SC ACHS [facility] PRN Reason: Protocol Last Admin: 03/29/17 06:44 Dose: Not Given Levothyroxine Sodium (Synthroid) 125 mcg PO DAILY [facility] PRN Reason: Protocol Last Admin: 03/29/17 06:02 Dose: 125 mcg Lisinopril (Zestril) 2.5 mg PO DAILY [facility] PRN Reason: Protocol Metoprolol Succinate (Toprol Xl) 12.5 mg PO BRK [facility] Last Admin: 03/29/17 08:08 Dose: 12.5 mg Metronidazole (Flagyl) 500 mg PO Q8 [facility] PRN Reason: Protocol Last Admin: 03/29/17 06:01 Dose: 500 mg Ondansetron HCl (Zofran Inj) 4 mg IVP Q6H PRN; Protocol PRN Reason: Nausea/Vomiting Pantoprazole Sodium (Protonix Ec Tab) 40 mg PO 0600 [facility] PRN Reason: Protocol Last Admin: 03/29/17 06:02 Dose: 40 mg Tramadol HCl (Ultram) 50 mg PO Q6H PRN; Protocol PRN Reason: Pain, moderate (4-7) - Constitutional Appears: Well, No Acute Distress - Neck Exam Additional comments: No JVD. - Respiratory Exam Respiratory Exam: Clear to Ausculation Bilateral - Cardiovascular Exam Cardiovascular Exam: REGULAR RHYTHM, +S1, +S2 - GI/Abdominal Exam GI & Abdominal Exam: Soft, Normal Bowel Sounds - Extremities Exam Extremities Exam: Full ROM, Normal Capillary Refill, Normal Inspection. absent : Joint Swelling, Pedal Edema Assessment and Plan - Assessment and Plan (Free Text) Assessment: . Impression: * Recent fall, no evidence of loss of consciousness. * Status post recent myocardial infarction, status post PCI of LAD, clinically stable * Paroxysmal atrial fibrillation following infarction, and no evidence of recurrence * Gait instability Recommendations: * Continue current cardiac medications. * Continue physical therapy as able. * Increase activities as tolerated. * If issues with gait instability and falls becomes a chronic problem, may need to consider assisted living arrangements or 24-hour in-home care.
--- NOTE | 2017-03-29 11:08 | CP.PCM.CON ---
History of Present Illness - History of Present Illness History of Present Illness: DOING WELL Review of Systems - Constitutional Constitutional: Weakness - EENT Eyes: absent: As Per HPI, Blind Spots, Blurred Vision, Change in Vision, Decreased Night Vision, Diplopia, Discharge, Dry Eye, Exophthalmos, Floaters, Irritation, Itchy Eyes, Loss of Peripheral Vision, Pain, Photophobia, Requires Corrective Lenses, Sees Flashes, Spots in Vision, Tunnel Vision, Other Visual Disturbances, Loss of Vision, Other Ears: absent: As Per HPI, Decreased Hearing, Ear Discharge, Ear Pain, Tinnitus, Abnormal Hearing, Disequilibrium, Dizziness, Other Nose/Mouth/Throat: absent: As Per HPI, Epistaxis, Nasal Congestion, Nasal Discharge, Nasal Obstruction, Nasal Trauma, Nose Pain, Post Nasal Drip, Sinus Pain, Sinus Pressure, Bleeding Gums, Change in Voice, Dental Pain, Dry Mouth, Dysphagia, Halitosis, Hoarsness, Lip Swelling, Mouth Lesions, Mouth Pain, Odynophagia, Sore Throat, Throat Swelling, Tongue Swelling, Facial Pain, Neck Pain, Neck Mass, Other - Cardiovascular Cardiovascular: absent: As Per HPI, Acrocyanosis, Chest Pain, Chest Pain at Rest , Chest Pain with Activity, Claudication, Diaphoresis, Dyspnea, Dyspnea on Exertion, Edema, Irregular Heart Rhythm, Pain Radiating to Arm/Neck/Jaw, Leg Edema, Leg Ulcers, Lightheadedness, Orthopnea, Palpitations, Paroxysmal Nocturnal Dyspnea, Pedal Edema, Radiating Pain, Rapid Heart Rate, Slow Heart Rate, Syncope, Other - Gastrointestinal Gastrointestinal: absent: As Per HPI, Abdominal Pain, Belching, Bloating, Change in Bowel Habits, Change in Stool Character, Coffee Ground Emesis, Constipation, Cramping, Diarrhea, Dyspepsia, Dysphagia, Early Satiety, Excessive Flatus, Fecal Incontinence, Heartburn, Hematemesis, Hematochezia, Loose Stools, Melena, Nausea, Odynophagia, Temesmus, Vomiting, Other - Reproductive: Female Reproductive:Female: absent: As Per HPI, Amenorrhea, Amenorrhea/ Control, Currently Menstual, Cycle <21 Days, Cycle >35 Days, Cycle Variable, Menses 1-7 Days, Menses >/= 8 Days, Menses Variable, Cycle > 4 Weeks Between, No Menses for 6 Months, Heavy Menses, Light Menses, Normal Menses, Spotting Between Cycles , S/P Hysterectomy, Menopausal, Post Menopausal, Premenarche, Abnormal Vaginal Bleeding, Dysmenorrhea, Dyspareunia, Genital Lesions, Genital Pruritis, Pelvic Pain, Prolapse Symptoms, Sexual Dysfunction, Vaginal Discharge, Vaginal Dryness , Vaginal Odor, Vaginal Pruritis, Other Past Patient History - Infectious Disease Hx of Infectious Diseases: None - Past Medical History & Family History Past Medical History?: Yes - Past Social History Smoking Status: Never Smoked - CARDIAC Hx Hypercholesterolemia: Yes - PULMONARY Hx Chronic Obstructive Pulmonary Disease (COPD): Yes - HEENT Hx HEENT Problems: Yes ("runny nose" at times) - ENDOCRINE/METABOLIC Hx Diabetes Mellitus Type 2: Yes - MUSCULOSKELETAL/RHEUMATOLOGICAL Hx Falls: Yes - GASTROINTESTINAL Hx Gastrointestinal Disorders: Yes (loose stools) - GENITOURINARY/GYNECOLOGICAL Hx Reproductive Disorders: Yes (hysterectomy) - PSYCHIATRIC Hx Substance Use: No - SURGICAL HISTORY Hx Hysterectomy: Yes Other/Comment: thyroidectomy - ANESTHESIA Hx Anesthesia: Yes Hx Anesthesia Reactions: No Hx Malignant Hyperthermia: No Meds Allergies/Adverse Reactions: Allergies Allergy/AdvReac Type Severity Reaction Status Date / Time pcn Allergy ITCHING Uncoded 03/28/17 16:59 - Medications Medications: Current Medications Acetaminophen (Tylenol 325mg Tab) 650 mg PO Q6H PRN PRN Reason: Pain, Mild (1-3) Amiodarone HCl (Cordarone) 200 mg PO DAILY [facility] Aspirin (Aspirin Chewable) 81 mg PO DAILY [facility] PRN Reason: Protocol Atorvastatin Calcium (Lipitor) 80 mg PO DAILY [facility] PRN Reason: Protocol Clopidogrel Bisulfate (Plavix) 75 mg PO DAILY [facility] PRN Reason: Protocol Insulin Human Regular (Humulin R Low) 0 units SC ACHS [facility] PRN Reason: Protocol Last Admin: 03/29/17 06:44 Dose: Not Given Levothyroxine Sodium (Synthroid) 125 mcg PO DAILY [facility] PRN Reason: Protocol Last Admin: 03/29/17 06:02 Dose: 125 mcg Lisinopril (Zestril) 2.5 mg PO DAILY [facility] PRN Reason: Protocol Metoprolol Succinate (Toprol Xl) 12.5 mg PO BRK [facility] Last Admin: 03/29/17 08:08 Dose: 12.5 mg Metronidazole (Flagyl) 500 mg PO Q8 [facility] PRN Reason: Protocol Last Admin: 03/29/17 06:01 Dose: 500 mg Ondansetron HCl (Zofran Inj) 4 mg IVP Q6H PRN; Protocol PRN Reason: Nausea/Vomiting Pantoprazole Sodium (Protonix Ec Tab) 40 mg PO 0600 [facility] PRN Reason: Protocol Last Admin: 03/29/17 06:02 Dose: 40 mg Tramadol HCl (Ultram) 50 mg PO Q6H PRN; Protocol PRN Reason: Pain, moderate (4-7) Physical Exam - Constitutional Appears: Well - Head Exam Head Exam: ATRAUMATIC, NORMAL INSPECTION, NORMOCEPHALIC - Eye Exam Eye Exam: EOMI, Normal appearance, PERRL Pupil Exam: NORMAL ACCOMODATION, PERRL - ENT Exam ENT Exam: Mucous Membranes Moist, Normal Exam - Neck Exam Neck exam: Positive for: Normal Inspection - Respiratory Exam Respiratory Exam: Clear to Auscultation Bilateral, NORMAL BREATHING PATTERN - Cardiovascular Exam Cardiovascular Exam: REGULAR RHYTHM - GI/Abdominal Exam GI & Abdominal Exam: Normal Bowel Sounds, Soft. absent: Tenderness - Rectal Exam Rectal Exam: NORMAL INSPECTION - Exam Exam: Circumcision, NORMAL INSPECTION External exam: NORMAL EXTERNAL EXAM Speculum exam: NORMAL SPECULUM EXAM Bimanual exam: NORMAL BIMANUAL EXAM - Extremities Exam Extremities exam: Positive for: normal inspection - Back Exam Back exam: NORMAL INSPECTION - Neurological Exam Neurological exam: Alert, CN II-XII Intact, Normal Gait, Oriented x3, Reflexes Normal - Psychiatric Exam Psychiatric exam: Normal Affect, Normal Mood - Skin Skin Exam: Dry, Intact, Normal Color, Warm Results - Vital Signs Recent Vital Signs: Last Vital Signs Temp 97.2 F L 03/28/17 16:59 Pulse 62 03/29/17 08:08 Resp 18 03/28/17 16:59 BP 100/62 03/29/17 08:08 Pulse Ox Assessment & Plan (1) Bandemia Status: Acute (2) Chest pain Status: Acute (3) Diarrhea Status: Acute (4) SIRS (systemic inflammatory response syndrome) Status: Acute (5) Septic colitis Status: Acute - Assessment and Plan (Free Text) Plan: PO FLAGYL DAY 5 OF 7 AWAIING STOOL CULTURES - Date & Time Date: 03/29/17 Time: 07:00
[2017-03-30] MEDS: Pantoprazole 40 mg EC Tab PO SCH (05:49)
[2017-03-30] MEDS: Levothyroxine 125 MCG TAB PO SCH (06:27)
[2017-03-30] MEDS: Insulin Reg-LOW-Coverage SC SCH ×4 (06:35→21:32)
[2017-03-30 07:12] LABS: BASO # 0.03 K/mm3 (0.0-2.0); BASO % 0.6 % (0.0-3.0); EOS # 0.1 (0.0-0.7); EOS % 2.5 % (1.5-5.0); HEMOGLOBIN 9.4 gm/dL (12.0-16.0); LYMPH # 0.7 (1.2-3.4); LYMPH % 13.3 % (22.0-35.0); MEAN CELL VOLUME 82.4 fL (80.0-105.0); MEAN CORPUSCULAR HEMOGLOBIN 25.8 pg (25.0-35.0); MEAN CORPUSCULAR HGB CONC 31.3 g/dl (31.0-37.0); MEAN PLATELET VOLUME 10.7 fl (7.0-11.0); MONO # 0.4 (0.1-0.6); MONO % 7.6 % (1.0-6.0); PLATELET COUNT 185 10^3/uL (120.0-450.0); RBC 3.64 10^6/uL (3.5-6.1); RED CELL DISTRIBUTION WIDTH 16.1 % (11.5-14.5); WHITE BLOOD COUNT 5.1 10^3/ul (4.5-11.0)
--- NOTE | 2017-03-30 07:21 | CP.PCM.CON ---
<Mai Sher - Last Filed: 03/30/17 12:02> History of Present Illness - History of Present Illness History of Present Illness: PGY2 neurology consult note for Dr Hernandez. Reason for consult: Fall Patient is an 86 y/o with PMH of hypothyroidism, paroxysmal atrial fibrillation , CAD (s/p LAD stent placed 1 week ago at [facility] ([facility] chronic colitis and COPD whom presented to [facility] s/p slip and fall backward, with occipital head hematoma. Patient was admitted to [facility], had extensive work up for possible CVA/ Syncope. CT head w/o contrast x2 was negative for acute ischemic changes, chemistry was unremarkable, including normal TSH. Orthostatic vital signs were also normal . Patient had occipital scalp hematoma and laceration which was sutured in the ED. Patient has anemia with positive FOBT pending work up by Gi. Patient c/o headache on admission, but states the headache has resolved. Patient is currently in TCU for rehab, reprots she's doing well with the PT. Patient currently denies cp, sob, n/v/d, denies headache or dizziness. Review of Systems - Constitutional Constitutional: Frequent Falls. absent: Fatigue, Fever, Headache, Lethargy - EENT Eyes: absent: Blurred Vision Ears: absent: Decreased Hearing Nose/Mouth/Throat: absent: Neck Pain - Cardiovascular Cardiovascular: absent: Chest Pain, Dyspnea on Exertion - Respiratory Respiratory: absent: Cough, Wheezing - Gastrointestinal Gastrointestinal: absent: Abdominal Pain, Nausea, Vomiting - Genitourinary Genitourinary: absent: Dysuria - Musculoskeletal Musculoskeletal: Abnormal Gait. absent: Back Pain, Muscle Weakness, Neck Pain, Numbness, Radiating Pain into Limb - Neurological Neurological: Abnormal Gait, Frequent Falls. absent: Abnormal Hearing, Abnormal Movements, Abnormal Speech, Behavioral Changes, Confusion, Convulsions , Headaches, Lack of Coordination, Loss of Vision, Paresthesias, Radicular Pain , Sensory Deficit, Syncope, Tingling, Tremor, Vertigo, Weakness - Psychiatric Psychiatric: absent: Anxiety, Depression - Endocrine Endocrine: absent: Fatigue, Palpitations Past Patient History - Infectious Disease Hx of Infectious Diseases: None - Past Medical History & Family History Past Medical History?: Yes - Past Social History Smoking Status: Never Smoked Alcohol: None Drugs: Denies Home Situation {Lives}: With Family - CARDIAC Hx Hypercholesterolemia: Yes - PULMONARY Hx Chronic Obstructive Pulmonary Disease (COPD): Yes - HEENT Hx HEENT Problems: Yes ("runny nose" at times) - ENDOCRINE/METABOLIC Hx Diabetes Mellitus Type 2: Yes - MUSCULOSKELETAL/RHEUMATOLOGICAL Hx Falls: Yes - GASTROINTESTINAL Hx Gastrointestinal Disorders: Yes (loose stools) - GENITOURINARY/GYNECOLOGICAL Hx Reproductive Disorders: Yes (hysterectomy) - PSYCHIATRIC Hx Substance Use: No - SURGICAL HISTORY Hx Hysterectomy: Yes Other/Comment: thyroidectomy - ANESTHESIA Hx Anesthesia: Yes Hx Anesthesia Reactions: No Hx Malignant Hyperthermia: No Meds Allergies/Adverse Reactions: Allergies Allergy/AdvReac Type Severity Reaction Status Date / Time pcn Allergy ITCHING Uncoded 03/28/17 16:59 - Medications Medications: Current Medications Acetaminophen (Tylenol 325mg Tab) 650 mg PO Q6H PRN PRN Reason: Pain, Mild (1-3) Amiodarone HCl (Cordarone) 200 mg PO DAILY [facility] Last Admin: 03/29/17 11:27 Dose: 200 mg Aspirin (Aspirin Chewable) 81 mg PO DAILY [facility] PRN Reason: Protocol Last Admin: 03/29/17 11:25 Dose: 81 mg Atorvastatin Calcium (Lipitor) 80 mg PO DAILY [facility] PRN Reason: Protocol Last Admin: 03/29/17 11:29 Dose: 80 mg Clopidogrel Bisulfate (Plavix) 75 mg PO DAILY [facility] PRN Reason: Protocol Last Admin: 03/29/17 11:30 Dose: 75 mg Insulin Human Regular (Humulin R Low) 0 units SC ACHS [facility] PRN Reason: Protocol Last Admin: 03/30/17 06:35 Dose: 1 units Levothyroxine Sodium (Synthroid) 125 mcg PO 0600 [facility] PRN Reason: Protocol Last Admin: 03/30/17 06:27 Dose: 125 mcg Lisinopril (Zestril) 2.5 mg PO DAILY [facility] PRN Reason: Protocol Last Admin: 03/29/17 11:31 Dose: Not Given Metoprolol Succinate (Toprol Xl) 12.5 mg PO BRK [facility] Last Admin: 03/29/17 08:08 Dose: 12.5 mg Metronidazole (Flagyl) 500 mg PO Q8 [facility] PRN Reason: Protocol Last Admin: 03/30/17 05:49 Dose: 500 mg Ondansetron HCl (Zofran Inj) 4 mg IVP Q6H PRN; Protocol PRN Reason: Nausea/Vomiting Pantoprazole Sodium (Protonix Ec Tab) 40 mg PO 0600 [facility] PRN Reason: Protocol Last Admin: 03/30/17 05:49 Dose: 40 mg Tramadol HCl (Ultram) 50 mg PO Q6H PRN; Protocol PRN Reason: Pain, moderate (4-7) Physical Exam - Constitutional Appears: No Acute Distress, Cachectic - Head Exam Head Exam: NORMAL INSPECTION, NORMOCEPHALIC. absent: ATRAUMATIC (occipital laceration/hematoma) - Eye Exam Eye Exam: EOMI, Normal appearance, PERRL. absent: Scleral icterus Pupil Exam: NORMAL ACCOMODATION, PERRL - ENT Exam ENT Exam: Mucous Membranes Moist - Neck Exam Neck exam: Positive for: Full Rom, Normal Inspection. Negative for: Lymphadenopathy, Meningismus, Tenderness, Thyromegaly - Respiratory Exam Respiratory Exam: Clear to Auscultation Bilateral, NORMAL BREATHING PATTERN. absent: Prolonged Expiratory Phase, Rales, Rhonchi, Wheezes, Respiratory Distress, Stridor - Cardiovascular Exam Cardiovascular Exam: Irregular Rhythm, +S1, +S2. absent: Systolic Murmur - GI/Abdominal Exam GI & Abdominal Exam: Normal Bowel Sounds, Soft. absent: Distended, Guarding, Tenderness - Extremities Exam Extremities exam: Positive for: normal inspection. Negative for: pedal edema - Back Exam Back exam: NORMAL INSPECTION. absent: muscle spasm, paraspinal tenderness, tenderness, vertebral tenderness - Neurological Exam Neurological exam: Abnormal Gait (unsteady ), Alert, CN II-XII Intact, Oriented x3, Reflexes Normal Additional comments: FROMX4 5/5 Motor strengths x4 Normal babinski sensation to pinprick and dull object intact negative dysmetria - Psychiatric Exam Psychiatric exam: Normal Affect, Normal Mood - Skin Skin Exam: Normal Color, Warm Additional comments: occipital laceration with sutures, no drainage, no signs of infection. Results - Vital Signs Recent Vital Signs: Last Vital Signs Temp 97.8 F 03/29/17 16:00 Pulse 54 L 03/29/17 16:00 Resp 18 03/29/17 16:00 BP 102/48 L 03/29/17 16:00 Pulse Ox 97 03/29/17 16:00 - Labs Result Diagrams: 03/30/17 06:20 Assessment & Plan - Assessment and Plan (Free Text) Assessment: he patient is an 86 year old woman with a history of hypothyroidism, paroxysmal atrial fibrillation, CAD (s/p LAD stent placed 1 week ago at [facility] ([facility] , chronic colitis and COPD, who slipped and fell backwards while climbing stairs inside her home earlier in the evening. She ended up landing on the back of her head. Patient had headache after the event, which has since resolved. In TCU for PT. Plan: 1) C/w asa 81 mg and plavix 75 mg for stroke prevention. 2) Continue with PT. 3) Stable for neuro perspective 2) F/u outpatient to assess further gait issues if reoccurred. Patient seen, examined, case discussed with Dr Hernandez. - Date & Time Date: 03/30/17 Time: 10:00 <Jacob Hernandez - Last Filed: 03/30/17 12:13> Meds - Medications Medications: Current Medications Acetaminophen (Tylenol 325mg Tab) 650 mg PO Q6H PRN PRN Reason: Pain, Mild (1-3) Amiodarone HCl (Cordarone) 200 mg PO DAILY [facility] Last Admin: 03/30/17 10:46 Dose: 200 mg Aspirin (Aspirin Chewable) 81 mg PO DAILY [facility] PRN Reason: Protocol Last Admin: 03/30/17 10:23 Dose: 81 mg Atorvastatin Calcium (Lipitor) 80 mg PO DAILY [facility] PRN Reason: Protocol Last Admin: 03/30/17 10:24 Dose: 80 mg Clopidogrel Bisulfate (Plavix) 75 mg PO DAILY [facility] PRN Reason: Protocol Last Admin: 03/30/17 10:24 Dose: 75 mg Insulin Human Regular (Humulin R Low) 0 units SC ACHS [facility] PRN Reason: Protocol Last Admin: 03/30/17 06:35 Dose: 1 units Levothyroxine Sodium (Synthroid) 125 mcg PO 0600 [facility] PRN Reason: Protocol Last Admin: 03/30/17 06:27 Dose: 125 mcg Lisinopril (Zestril) 2.5 mg PO DAILY [facility] PRN Reason: Protocol Last Admin: 03/29/17 11:31 Dose: Not Given Metoprolol Succinate (Toprol Xl) 12.5 mg PO BRK [facility] Last Admin: 03/30/17 08:36 Dose: 12.5 mg Metronidazole (Flagyl) 500 mg PO Q8 [facility] PRN Reason: Protocol Last Admin: 03/30/17 05:49 Dose: 500 mg Ondansetron HCl (Zofran Inj) 4 mg IVP Q6H PRN; Protocol PRN Reason: Nausea/Vomiting Pantoprazole Sodium (Protonix Ec Tab) 40 mg PO 0600 [facility] PRN Reason: Protocol Last Admin: 03/30/17 05:49 Dose: 40 mg Tramadol HCl (Ultram) 50 mg PO Q6H PRN; Protocol PRN Reason: Pain, moderate (4-7) Results - Vital Signs Recent Vital Signs: Last Vital Signs Temp 97.5 F L 03/30/17 10:00 Pulse 60 03/30/17 10:46 Resp 18 03/30/17 10:00 BP 135/62 03/30/17 10:46 Pulse Ox 98 03/30/17 10:00 - Labs Result Diagrams: 03/30/17 06:20 Labs: Laboratory Results - last 24 hr 03/30/17 06:20 WBC 5.1 RBC 3.64 Hgb 9.4 L Hct 30.0 L MCV 82.4 MCH 25.8 MCHC 31.3 RDW 16.1 H Plt Count 185 MPV 10.7 Gran % 76.0 H Lymph % (Auto) 13.3 L [place] % (Auto) 7.6 H Eos % (Auto) 2.5 Baso % (Auto) 0.6 Gran # 3.90 Lymph # 0.7 L [place] # 0.4 Eos # 0.1 Baso # 0.03 Attending/Attestation - Attestation I have personally seen and examined this patient.: Yes I have fully participated in the care of the patient.: Yes I have reviewed all pertinent clinical information: Yes
[2017-03-30] MEDS: Metoprolol Succinate 25 mg XL Tab PO SCH (08:36)
--- NOTE | 2017-03-30 09:41 | CP.PCM.PN ---
Subjective - Date & Time of Evaluation Date of Evaluation: 03/30/17 Time of Evaluation: 09:05 - Subjective Subjective: . Seen for followup on transitional care unit. Feeling well. Participating in exercise program. Has some fatigue. Denies any lightheadedness. Has had no chest pain or dyspnea. Objective - Vital Signs/Intake and Output Vital Signs (last 24 hours): Temp Pulse Resp BP Pulse Ox 98.0 F 62 16 98/59 L 97 03/30/17 06:00 03/30/17 08:36 03/30/17 06:00 03/30/17 08:36 03/30/17 06:00 Intake and Output: 03/30/17 03/30/17 06:59 18:59 Intake Total 600 Balance 600 - Medications Medications: Current Medications Acetaminophen (Tylenol 325mg Tab) 650 mg PO Q6H PRN PRN Reason: Pain, Mild (1-3) Amiodarone HCl (Cordarone) 200 mg PO DAILY [facility] Last Admin: 03/29/17 11:27 Dose: 200 mg Aspirin (Aspirin Chewable) 81 mg PO DAILY [facility] PRN Reason: Protocol Last Admin: 03/29/17 11:25 Dose: 81 mg Atorvastatin Calcium (Lipitor) 80 mg PO DAILY [facility] PRN Reason: Protocol Last Admin: 03/29/17 11:29 Dose: 80 mg Clopidogrel Bisulfate (Plavix) 75 mg PO DAILY [facility] PRN Reason: Protocol Last Admin: 03/29/17 11:30 Dose: 75 mg Insulin Human Regular (Humulin R Low) 0 units SC ACHS [facility] PRN Reason: Protocol Last Admin: 03/30/17 06:35 Dose: 1 units Levothyroxine Sodium (Synthroid) 125 mcg PO 0600 [facility] PRN Reason: Protocol Last Admin: 03/30/17 06:27 Dose: 125 mcg Lisinopril (Zestril) 2.5 mg PO DAILY [facility] PRN Reason: Protocol Last Admin: 03/29/17 11:31 Dose: Not Given Metoprolol Succinate (Toprol Xl) 12.5 mg PO BRK [facility] Last Admin: 03/30/17 08:36 Dose: 12.5 mg Metronidazole (Flagyl) 500 mg PO Q8 [facility] PRN Reason: Protocol Last Admin: 03/30/17 05:49 Dose: 500 mg Ondansetron HCl (Zofran Inj) 4 mg IVP Q6H PRN; Protocol PRN Reason: Nausea/Vomiting Pantoprazole Sodium (Protonix Ec Tab) 40 mg PO 0600 [facility] PRN Reason: Protocol Last Admin: 03/30/17 05:49 Dose: 40 mg Tramadol HCl (Ultram) 50 mg PO Q6H PRN; Protocol PRN Reason: Pain, moderate (4-7) - Labs Labs: 03/30/17 06:20 - Constitutional Appears: Well - Neck Exam Neck Exam: Full ROM, Normal Inspection. absent: Lymphadenopathy - Cardiovascular Exam Cardiovascular Exam: REGULAR RHYTHM, +S1, +S2. absent: Murmur - GI/Abdominal Exam GI & Abdominal Exam: Soft, Normal Bowel Sounds. absent: Tenderness - Extremities Exam Extremities Exam: Full ROM, Normal Capillary Refill, Normal Inspection. absent : Joint Swelling, Pedal Edema - Skin Skin Exam: Dry, Intact, Normal Color, Warm Assessment and Plan - Assessment and Plan (Free Text) Assessment: . Impression: * Stable cardiac status, status post recent anterolateral myocardial infarction and PCI of LAD. * Recent fall, clinically improved * Gait instability and deconditioning, improved Plan: . Recommendations: * Stable from cardiac standpoint for discharge home once arrangements made for home care. * Continue current medications. * Continue risk factor control. * Reviewed fall precautions.
--- NOTE | 2017-03-30 12:21 | CP.PCM.PN ---
Subjective - Date & Time of Evaluation Date of Evaluation: 03/30/17 Time of Evaluation: 11:20 - Subjective Subjective: Comfortable, not in distress, afebrile. Objective - Vital Signs/Intake and Output Vital Signs (last 24 hours): Temp Pulse Resp BP Pulse Ox 98.0 F 62 16 98/58 L 97 03/30/17 06:00 03/30/17 06:00 03/30/17 06:00 03/30/17 06:00 03/30/17 06:00 Intake and Output: 03/30/17 03/30/17 06:59 18:59 Intake Total 600 Balance 600 - Medications Medications: Current Medications Acetaminophen (Tylenol 325mg Tab) 650 mg PO Q6H PRN PRN Reason: Pain, Mild (1-3) Amiodarone HCl (Cordarone) 200 mg PO DAILY [facility] Last Admin: 03/29/17 11:27 Dose: 200 mg Aspirin (Aspirin Chewable) 81 mg PO DAILY [facility] PRN Reason: Protocol Last Admin: 03/29/17 11:25 Dose: 81 mg Atorvastatin Calcium (Lipitor) 80 mg PO DAILY [facility] PRN Reason: Protocol Last Admin: 03/29/17 11:29 Dose: 80 mg Clopidogrel Bisulfate (Plavix) 75 mg PO DAILY [facility] PRN Reason: Protocol Last Admin: 03/29/17 11:30 Dose: 75 mg Insulin Human Regular (Humulin R Low) 0 units SC ACHS [facility] PRN Reason: Protocol Last Admin: 03/30/17 06:35 Dose: 1 units Levothyroxine Sodium (Synthroid) 125 mcg PO 0600 [facility] PRN Reason: Protocol Last Admin: 03/30/17 06:27 Dose: 125 mcg Lisinopril (Zestril) 2.5 mg PO DAILY [facility] PRN Reason: Protocol Last Admin: 03/29/17 11:31 Dose: Not Given Metoprolol Succinate (Toprol Xl) 12.5 mg PO BRK [facility] Last Admin: 03/29/17 08:08 Dose: 12.5 mg Metronidazole (Flagyl) 500 mg PO Q8 [facility] PRN Reason: Protocol Last Admin: 03/30/17 05:49 Dose: 500 mg Ondansetron HCl (Zofran Inj) 4 mg IVP Q6H PRN; Protocol PRN Reason: Nausea/Vomiting Pantoprazole Sodium (Protonix Ec Tab) 40 mg PO 0600 [facility] PRN Reason: Protocol Last Admin: 03/30/17 05:49 Dose: 40 mg Tramadol HCl (Ultram) 50 mg PO Q6H PRN; Protocol PRN Reason: Pain, moderate (4-7) - Labs Labs: 03/30/17 06:20 - Constitutional Appears: Non-toxic, No Acute Distress - Head Exam Head Exam: NORMAL INSPECTION - ENT Exam ENT Exam: Mucous Membranes Moist - Neck Exam Neck Exam: absent: Lymphadenopathy, Meningismus - Respiratory Exam Respiratory Exam: Decreased Breath Sounds - Cardiovascular Exam Cardiovascular Exam: +S1, +S2 - GI/Abdominal Exam GI & Abdominal Exam: Soft. absent: Tenderness Assessment and Plan - Assessment and Plan (Free Text) Plan: Assessment R/O C. diff. colitis hypothyroidism CAD S/P PCI paroxysmal atrial fibrillation COPD Plan Continue PO Flagyl (day 6 of 7-10 days) will continue to monitor clinically
--- NOTE | 2017-03-30 12:28 | CP.PCM.PN ---
Subjective - Date & Time of Evaluation Date of Evaluation: 03/30/17 Time of Evaluation: 09:10 - Subjective Subjective: S&E in TCU, OOB to chair, no reports of acute overnight events. Patient report formed BM, no melena or BRBPR. No new complaints. Objective - Vital Signs/Intake and Output Vital Signs (last 24 hours): Temp Pulse Resp BP Pulse Ox 97.5 F L 60 18 135/62 98 03/30/17 10:00 03/30/17 10:46 03/30/17 10:00 03/30/17 10:46 03/30/17 10:00 Intake and Output: 03/30/17 03/30/17 06:59 18:59 Intake Total 600 Balance 600 - Medications Medications: Current Medications Acetaminophen (Tylenol 325mg Tab) 650 mg PO Q6H PRN PRN Reason: Pain, Mild (1-3) Amiodarone HCl (Cordarone) 200 mg PO DAILY [facility] Last Admin: 03/30/17 10:46 Dose: 200 mg Aspirin (Aspirin Chewable) 81 mg PO DAILY [facility] PRN Reason: Protocol Last Admin: 03/30/17 10:23 Dose: 81 mg Atorvastatin Calcium (Lipitor) 80 mg PO DAILY [facility] PRN Reason: Protocol Last Admin: 03/30/17 10:24 Dose: 80 mg Clopidogrel Bisulfate (Plavix) 75 mg PO DAILY [facility] PRN Reason: Protocol Last Admin: 03/30/17 10:24 Dose: 75 mg Insulin Human Regular (Humulin R Low) 0 units SC ACHS [facility] PRN Reason: Protocol Last Admin: 03/30/17 06:35 Dose: 1 units Levothyroxine Sodium (Synthroid) 125 mcg PO 0600 [facility] PRN Reason: Protocol Last Admin: 03/30/17 06:27 Dose: 125 mcg Lisinopril (Zestril) 2.5 mg PO DAILY [facility] PRN Reason: Protocol Last Admin: 03/29/17 11:31 Dose: Not Given Metoprolol Succinate (Toprol Xl) 12.5 mg PO BRK [facility] Last Admin: 03/30/17 08:36 Dose: 12.5 mg Metronidazole (Flagyl) 500 mg PO Q8 [facility] PRN Reason: Protocol Last Admin: 03/30/17 05:49 Dose: 500 mg Ondansetron HCl (Zofran Inj) 4 mg IVP Q6H PRN; Protocol PRN Reason: Nausea/Vomiting Pantoprazole Sodium (Protonix Ec Tab) 40 mg PO 0600 [facility] PRN Reason: Protocol Last Admin: 03/30/17 05:49 Dose: 40 mg Tramadol HCl (Ultram) 50 mg PO Q6H PRN; Protocol PRN Reason: Pain, moderate (4-7) - Labs Labs: 03/30/17 06:20 - Constitutional Appears: No Acute Distress - Eye Exam Eye Exam: Normal appearance. absent: Scleral icterus - ENT Exam ENT Exam: Mucous Membranes Moist - Neck Exam Neck Exam: Normal Inspection - Respiratory Exam Respiratory Exam: Clear to Ausculation Bilateral, NORMAL BREATHING PATTERN. absent: Respiratory Distress - Cardiovascular Exam Cardiovascular Exam: +S1, +S2 - GI/Abdominal Exam GI & Abdominal Exam: Soft, Normal Bowel Sounds. absent: Distended, Guarding, Tenderness, Rebound - Extremities Exam Extremities Exam: absent: Calf Tenderness, Pedal Edema - Neurological Exam Neurological Exam: Alert, Awake, Oriented x3 Assessment and Plan - Assessment and Plan (Free Text) Assessment: Assessment: Status post Fall Diarrhea, CT scan negative no acute findings, now resolved History of Crohn's disease Anemia, h/h steady S/P MA, Cardiac cath, stent Plan: Continue diet as tolerated Continue PPI On aspirin and Plavix On amiodarone continue to monitor H&H, patient guiac positive, no no overt GI bleed, status post recent stent on anticoagulants, will continue to monitor closely, discussed Seen and discussed with Dr. Massey.
[2017-03-31] MEDS: Pantoprazole 40 mg EC Tab PO SCH (05:28)
[2017-03-31] MEDS: Levothyroxine 125 MCG TAB PO SCH (05:28)
[2017-03-31] MEDS: Insulin Reg-LOW-Coverage SC SCH ×4 (08:33→23:57)
[2017-03-31] MEDS: Metoprolol Succinate 25 mg XL Tab PO SCH (08:45)
--- NOTE | 2017-03-31 19:12 | CP.PCM.PN ---
Subjective - Date & Time of Evaluation Date of Evaluation: 03/31/17 Time of Evaluation: 08:45 - Subjective Subjective: Pt with no pain. Eating ok. Objective - Vital Signs/Intake and Output Vital Signs (last 24 hours): Temp Pulse Resp BP Pulse Ox 97.6 F 69 18 112/59 L 96 03/31/17 16:00 03/31/17 16:00 03/31/17 16:00 03/31/17 16:00 03/31/17 10:00 Intake and Output: 03/31/17 04/01/17 18:59 06:59 Intake Total 420 Balance 420 - Medications Medications: Current Medications Acetaminophen (Tylenol 325mg Tab) 650 mg PO Q6H PRN PRN Reason: Pain, Mild (1-3) Amiodarone HCl (Cordarone) 200 mg PO DAILY [facility] Last Admin: 03/31/17 09:37 Dose: Not Given Aspirin (Aspirin Chewable) 81 mg PO DAILY [facility] PRN Reason: Protocol Last Admin: 03/31/17 09:31 Dose: 81 mg Atorvastatin Calcium (Lipitor) 80 mg PO DAILY [facility] PRN Reason: Protocol Last Admin: 03/31/17 09:34 Dose: 80 mg Clopidogrel Bisulfate (Plavix) 75 mg PO DAILY [facility] PRN Reason: Protocol Last Admin: 03/31/17 09:34 Dose: 75 mg Insulin Human Regular (Humulin R Low) 0 units SC ACHS [facility] PRN Reason: Protocol Last Admin: 03/31/17 17:30 Dose: 2 units Levothyroxine Sodium (Synthroid) 125 mcg PO 0600 [facility] PRN Reason: Protocol Last Admin: 03/31/17 05:28 Dose: 125 mcg Lisinopril (Zestril) 2.5 mg PO DAILY [facility] PRN Reason: Protocol Last Admin: 03/31/17 09:36 Dose: Not Given Metoprolol Succinate (Toprol Xl) 12.5 mg PO BRK [facility] Last Admin: 03/31/17 08:45 Dose: Not Given Metronidazole (Flagyl) 500 mg PO Q8 [facility] PRN Reason: Protocol Last Admin: 03/31/17 14:34 Dose: 500 mg Ondansetron HCl (Zofran Inj) 4 mg IVP Q6H PRN; Protocol PRN Reason: Nausea/Vomiting Pantoprazole Sodium (Protonix Ec Tab) 40 mg PO 0600 [facility] PRN Reason: Protocol Last Admin: 03/31/17 05:28 Dose: 40 mg Tramadol HCl (Ultram) 50 mg PO Q6H PRN; Protocol PRN Reason: Pain, moderate (4-7) - Labs Labs: 03/30/17 06:20 Assessment and Plan - Assessment and Plan (Free Text) Assessment: hypothyroidism CAD S/P PCI paroxysmal atrial fibrillation COPD Plan: Continue PO Flagyl PT on TCU. Spoke to surgery resident about taking out sutures from head laceration Eating ok Spoke to to give update.
[2017-04-01] MEDS: Pantoprazole 40 mg EC Tab PO SCH (05:55)
[2017-04-01] MEDS: Levothyroxine 125 MCG TAB PO SCH (05:55)
[2017-04-01] MEDS: Insulin Reg-LOW-Coverage SC SCH ×4 (06:51→21:46)
[2017-04-01] MEDS: Metoprolol Succinate 25 mg XL Tab PO SCH (08:55)
--- NOTE | 2017-04-01 11:17 | CP.PCM.PN ---
<Rosa Isela Fields - Last Filed: 04/01/17 11:17> Subjective - Date & Time of Evaluation Date of Evaluation: 04/01/17 Time of Evaluation: 08:15 - Subjective Subjective: S&E at bedside TCU, no overnight issues or new complaints. Tolerating PO intake and having BM, no bleeding noticed. No SOB or chest pain. Objective - Vital Signs/Intake and Output Vital Signs (last 24 hours): Temp Pulse Resp BP Pulse Ox 98.1 F 62 18 105/62 92 L 04/01/17 06:00 04/01/17 10:02 04/01/17 06:00 04/01/17 10:02 04/01/17 06:00 Intake and Output: 04/01/17 04/01/17 06:59 18:59 Intake Total 420 Balance 420 - Medications Medications: Current Medications Acetaminophen (Tylenol 325mg Tab) 650 mg PO Q6H PRN PRN Reason: Pain, Mild (1-3) Amiodarone HCl (Cordarone) 200 mg PO DAILY [facility] Last Admin: 04/01/17 10:01 Dose: 200 mg Aspirin (Aspirin Chewable) 81 mg PO DAILY [facility] PRN Reason: Protocol Last Admin: 04/01/17 10:00 Dose: 81 mg Atorvastatin Calcium (Lipitor) 80 mg PO DAILY [facility] PRN Reason: Protocol Last Admin: 04/01/17 10:01 Dose: 80 mg Clopidogrel Bisulfate (Plavix) 75 mg PO DAILY [facility] PRN Reason: Protocol Last Admin: 04/01/17 10:01 Dose: 75 mg Insulin Human Regular (Humulin R Low) 0 units SC ACHS [facility] PRN Reason: Protocol Last Admin: 04/01/17 06:51 Dose: Not Given Levothyroxine Sodium (Synthroid) 125 mcg PO 0600 [facility] PRN Reason: Protocol Last Admin: 04/01/17 05:55 Dose: 125 mcg Lisinopril (Zestril) 2.5 mg PO DAILY [facility] PRN Reason: Protocol Last Admin: 04/01/17 10:02 Dose: 2.5 mg Metoprolol Succinate (Toprol Xl) 12.5 mg PO BRK [facility] Last Admin: 04/01/17 08:55 Dose: 12.5 mg Metronidazole (Flagyl) 500 mg PO Q8 [facility] PRN Reason: Protocol Last Admin: 04/01/17 05:55 Dose: 500 mg Ondansetron HCl (Zofran Inj) 4 mg IVP Q6H PRN; Protocol PRN Reason: Nausea/Vomiting Pantoprazole Sodium (Protonix Ec Tab) 40 mg PO 0600 [facility] PRN Reason: Protocol Last Admin: 04/01/17 05:55 Dose: 40 mg Tramadol HCl (Ultram) 50 mg PO Q6H PRN; Protocol PRN Reason: Pain, moderate (4-7) - Labs Labs: 03/30/17 06:20 - Constitutional Appears: No Acute Distress - Head Exam Head Exam: NORMOCEPHALIC - Eye Exam Eye Exam: Normal appearance. absent: Scleral icterus - ENT Exam ENT Exam: Mucous Membranes Moist - Neck Exam Neck Exam: Normal Inspection - Respiratory Exam Respiratory Exam: Clear to Ausculation Bilateral, NORMAL BREATHING PATTERN. absent: Respiratory Distress - Cardiovascular Exam Cardiovascular Exam: +S1, +S2 - GI/Abdominal Exam GI & Abdominal Exam: Soft, Normal Bowel Sounds. absent: Guarding, Tenderness, Rebound - Extremities Exam Extremities Exam: absent: Calf Tenderness, Pedal Edema - Neurological Exam Neurological Exam: Alert, Awake, Oriented x3 - Skin Skin Exam: Dry, Warm Assessment and Plan - Assessment and Plan (Free Text) Assessment: Assessment: Status post Fall Diarrhea, CT scan negative no acute findings, now resolved History of Crohn's disease Anemia, h/h steady S/P [place], Cardiac cath, stent Plan: Continue diet as tolerated Continue PPI On aspirin and Plavix On amiodarone check cbc in am continue to monitor H&H, patient guiac positive, no no overt GI bleed, status post recent stent on anticoagulants, will continue to monitor closely, discussed Seen and discussed with Dr. Massey. <Susan Massey V - Last Filed: 04/01/17 23:56> Objective - Vital Signs/Intake and Output Vital Signs (last 24 hours): Temp Pulse Resp BP Pulse Ox 97 F L 62 12 105/62 99 04/01/17 10:00 04/01/17 10:02 04/01/17 10:00 04/01/17 10:02 04/01/17 10:00 Intake and Output: 04/01/17 04/02/17 18:59 06:59 Intake Total 420 Balance 420 - Medications Medications: Current Medications Acetaminophen (Tylenol 325mg Tab) 650 mg PO Q6H PRN PRN Reason: Pain, Mild (1-3) Amiodarone HCl (Cordarone) 200 mg PO DAILY [facility] Last Admin: 04/01/17 10:01 Dose: 200 mg Aspirin (Aspirin Chewable) 81 mg PO DAILY [facility] PRN Reason: Protocol Last Admin: 04/01/17 10:00 Dose: 81 mg Atorvastatin Calcium (Lipitor) 80 mg PO DAILY [facility] PRN Reason: Protocol Last Admin: 04/01/17 10:01 Dose: 80 mg Clopidogrel Bisulfate (Plavix) 75 mg PO DAILY [facility] PRN Reason: Protocol Last Admin: 04/01/17 10:01 Dose: 75 mg Insulin Human Regular (Humulin R Low) 0 units SC ACHS [facility] PRN Reason: Protocol Last Admin: 04/01/17 21:46 Dose: Not Given Levothyroxine Sodium (Synthroid) 125 mcg PO 0600 [facility] PRN Reason: Protocol Last Admin: 04/01/17 05:55 Dose: 125 mcg Lisinopril (Zestril) 2.5 mg PO DAILY [facility] PRN Reason: Protocol Last Admin: 04/01/17 10:02 Dose: 2.5 mg Metoprolol Succinate (Toprol Xl) 12.5 mg PO BRK [facility] Last Admin: 04/01/17 08:55 Dose: 12.5 mg Metronidazole (Flagyl) 500 mg PO Q8 [facility] PRN Reason: Protocol Last Admin: 04/01/17 21:29 Dose: 500 mg Ondansetron HCl (Zofran Inj) 4 mg IVP Q6H PRN; Protocol PRN Reason: Nausea/Vomiting Pantoprazole Sodium (Protonix Ec Tab) 40 mg PO 0600 [facility] PRN Reason: Protocol Last Admin: 04/01/17 05:55 Dose: 40 mg Tramadol HCl (Ultram) 50 mg PO Q6H PRN; Protocol PRN Reason: Pain, moderate (4-7) - Labs Labs: 03/30/17 06:20 Attending/Attestation - Attestation I have personally seen and examined this patient.: Yes I have fully participated in the care of the patient.: Yes I have reviewed all pertinent clinical information, including history, physical exam and plan: Yes Notes (Text): this
[2017-04-02] MEDS: Pantoprazole 40 mg EC Tab PO SCH (05:38)
[2017-04-02] MEDS: Levothyroxine 125 MCG TAB PO SCH (05:38)
[2017-04-02 07:35] LABS: BASO # 0.03 K/mm3 (0.0-2.0); BASO % 0.6 % (0.0-3.0); EOS # 0.1 (0.0-0.7); EOS % 2.2 % (1.5-5.0); GRAN # 3.83 (1.4-6.5); GRAN % 75.4 % (50.0-68.0); HEMOGLOBIN 9.1 gm/dL (12.0-16.0); LYMPH # 0.6 (1.2-3.4); LYMPH % 11.6 % (22.0-35.0); MEAN CELL VOLUME 81.6 fL (80.0-105.0); MEAN CORPUSCULAR HEMOGLOBIN 25.7 pg (25.0-35.0); MEAN CORPUSCULAR HGB CONC 31.5 g/dl (31.0-37.0); MEAN PLATELET VOLUME 10.9 fl (7.0-11.0); MONO # 0.5 (0.1-0.6); MONO % 10.2 % (1.0-6.0); PLATELET COUNT 200 10^3/uL (120.0-450.0); RBC 3.54 10^6/uL (3.5-6.1); RED CELL DISTRIBUTION WIDTH 15.9 % (11.5-14.5); WHITE BLOOD COUNT 5.1 10^3/ul (4.5-11.0)
[2017-04-02] MEDS: Insulin Reg-LOW-Coverage SC SCH ×4 (08:14→21:47)
[2017-04-02] MEDS: Metoprolol Succinate 25 mg XL Tab PO SCH (08:17)
--- NOTE | 2017-04-02 10:53 | CP.PCM.PN ---
Subjective - Date & Time of Evaluation Date of Evaluation: 04/02/17 Time of Evaluation: 10:40 - Subjective Subjective: Doing her rehab in the hallway, no fevers overnight, not in distress. Objective - Vital Signs/Intake and Output Vital Signs (last 24 hours): Temp Pulse Resp BP Pulse Ox 97.6 F 62 65 H 98/59 L 98 03/30/17 16:00 03/30/17 18:48 03/30/17 16:00 03/30/17 18:48 03/30/17 10:00 - Medications Medications: Current Medications Acetaminophen (Tylenol 325mg Tab) 650 mg PO Q6H PRN PRN Reason: Pain, Mild (1-3) Amiodarone HCl (Cordarone) 200 mg PO DAILY [facility] Last Admin: 03/30/17 10:46 Dose: 200 mg Aspirin (Aspirin Chewable) 81 mg PO DAILY [facility] PRN Reason: Protocol Last Admin: 03/30/17 10:23 Dose: 81 mg Atorvastatin Calcium (Lipitor) 80 mg PO DAILY [facility] PRN Reason: Protocol Last Admin: 03/30/17 10:24 Dose: 80 mg Clopidogrel Bisulfate (Plavix) 75 mg PO DAILY [facility] PRN Reason: Protocol Last Admin: 03/30/17 10:24 Dose: 75 mg Insulin Human Regular (Humulin R Low) 0 units SC ACHS [facility] PRN Reason: Protocol Last Admin: 03/30/17 21:32 Dose: Not Given Levothyroxine Sodium (Synthroid) 125 mcg PO 0600 [facility] PRN Reason: Protocol Last Admin: 03/31/17 05:28 Dose: 125 mcg Lisinopril (Zestril) 2.5 mg PO DAILY [facility] PRN Reason: Protocol Last Admin: 03/30/17 18:48 Dose: 2.5 mg Metoprolol Succinate (Toprol Xl) 12.5 mg PO BRK [facility] Last Admin: 03/30/17 08:36 Dose: 12.5 mg Metronidazole (Flagyl) 500 mg PO Q8 [facility] PRN Reason: Protocol Last Admin: 03/31/17 05:28 Dose: 500 mg Ondansetron HCl (Zofran Inj) 4 mg IVP Q6H PRN; Protocol PRN Reason: Nausea/Vomiting Pantoprazole Sodium (Protonix Ec Tab) 40 mg PO 0600 [facility] PRN Reason: Protocol Last Admin: 03/31/17 05:28 Dose: 40 mg Tramadol HCl (Ultram) 50 mg PO Q6H PRN; Protocol PRN Reason: Pain, moderate (4-7) - Labs Labs: 03/30/17 06:20 - Constitutional Appears: Non-toxic, No Acute Distress - Head Exam Head Exam: NORMAL INSPECTION - Respiratory Exam Respiratory Exam: Decreased Breath Sounds - Cardiovascular Exam Cardiovascular Exam: +S1, +S2 - GI/Abdominal Exam GI & Abdominal Exam: Soft. absent: Tenderness Assessment and Plan - Assessment and Plan (Free Text) Plan: Assessment R/O C. diff. colitis hypothyroidism CAD S/P PCI paroxysmal atrial fibrillation COPD Plan Continue PO Flagyl (day 9 of 10 days) will continue to monitor clinically
[2017-04-02 16:00] VITALS: RESP 18
[2017-04-03] MEDS: Pantoprazole 40 mg EC Tab PO SCH (05:52)
[2017-04-03] MEDS: Levothyroxine 125 MCG TAB PO SCH (05:52)
[2017-04-03 06:12] VITALS: TEMP 98.4; O2SAT 94
[2017-04-03] MEDS: Insulin Reg-LOW-Coverage SC SCH (06:41)
[2017-04-03] MEDS: Metoprolol Succinate 25 mg XL Tab PO SCH (08:10)
[2017-04-03 09:33] VITALS: BP 95/52; PULSE 62
--- NOTE | 2017-04-06 16:25 | CP.PCM.CON ---
History of Present Illness - History of Present Illness History of Present Illness: I saw the patient on the floor 2R. At the request of . Patient is known to be an 86 year old and interestingly the of Angel Mccabe that I just repaired a laceration on. She comes to the emergency room several days ago because of a fall on the head which is sutured. Her symptoms at this moment are chest pain, shortness of breath, blurred vision, and loss of vision. There are no irregularities of her periods, diarrhea, constipation, nausea, blood pressure , or melena. Multiple medications including Aspirin, Amiodarone, Lipitor, Plavix , Insulin, Levofloxacin, Zestril, Toprol, Flagyl, Zofran, Protonix, Ultram. Review of Systems - Review of Systems All systems: reviewed and no additional remarkable complaints except Past Patient History - Infectious Disease Hx of Infectious Diseases: None - Past Medical History & Family History Past Medical History?: Yes - Past Social History Smoking Status: Never Smoked Alcohol: None Drugs: Denies Home Situation {Lives}: With Family - CARDIAC Hx Hypercholesterolemia: Yes - PULMONARY Hx Chronic Obstructive Pulmonary Disease (COPD): Yes - HEENT Hx HEENT Problems: Yes ("runny nose" at times) - ENDOCRINE/METABOLIC Hx Diabetes Mellitus Type 2: Yes - MUSCULOSKELETAL/RHEUMATOLOGICAL Hx Falls: Yes - GASTROINTESTINAL Hx Gastrointestinal Disorders: Yes (loose stools) - GENITOURINARY/GYNECOLOGICAL Hx Reproductive Disorders: Yes (hysterectomy) - PSYCHIATRIC Hx Substance Use: No - SURGICAL HISTORY Hx Hysterectomy: Yes Other/Comment: thyroidectomy - ANESTHESIA Hx Anesthesia: Yes Hx Anesthesia Reactions: No Hx Malignant Hyperthermia: No Meds Allergies/Adverse Reactions: Allergies Allergy/AdvReac Type Severity Reaction Status Date / Time pcn Allergy ITCHING Uncoded 03/28/17 16:59 Physical Exam - Constitutional Additional comments: Physical exam remarkable for pleasant female seen at stated age: alert, awake and oriented. - Head Exam Additional comments: HEENT is negative except for the back of the skull that has a laceration with some crusted blood and multiple sutures, a little bit of swelling but not tender at this time. - Neck Exam Neck exam: Negative for: Thyromegaly Additional comments: Supple - Respiratory Exam Respiratory Exam: Clear to Auscultation Bilateral - Cardiovascular Exam Cardiovascular Exam: absent: Systolic Murmur - GI/Abdominal Exam GI & Abdominal Exam: Soft. absent: Tenderness - Extremities Exam Extremities exam: Negative for: pedal edema Additional comments: No clubbing, no cyanosis - Skin Skin Exam: Dry, Warm Results - Vital Signs Recent Vital Signs: Last Vital Signs Temp 98.4 F 04/03/17 06:00 Pulse 62 04/03/17 09:31 Resp 18 04/03/17 06:00 BP 95/52 L 04/03/17 09:31 Pulse Ox 94 L 04/03/17 06:00 - Labs Result Diagrams: 04/02/17 07:00 Assessment & Plan - Assessment and Plan (Free Text) Assessment: Impression is that there is a stable hematoma at the back of the skull. Plan: Stitches come out in about a week. I will follow patient peripherally and remove the stitches when she is on TCU. - Date & Time Date: 03/29/17 Time: 12:00
== END 2017-04-03 11:49 | disposition home health service (06) | DRG 945 ==
LOC: TRCU 15:40
PROVIDERS: ADMIT Internal Medicine; ATTEND Internal Medicine
PROC: F07Z9FZ Gait Training/Functional Ambulation Treatment using Assistive, Adaptive, Supportive or Protective Equipment (ICD-10-PCS; principal; 2017-03-29)
PROC: F07L6ZZ Therapeutic Exercise Treatment of Musculoskeletal System - Lower Back / Lower Extremity (ICD-10-PCS; 2017-03-29)
PROC: F07Z8ZZ Transfer Training Treatment (ICD-10-PCS; 2017-03-30)
PROC: F08Z4FZ Home Management Treatment using Assistive, Adaptive, Supportive or Protective Equipment (ICD-10-PCS; 2017-04-01)
DX: R53.1 Weakness (principal); R26.9 Unspecified abnormalities of gait and mobility; S01.01XD Laceration without foreign body of scalp, subsequent encounter; K50.90 Crohn's disease, unspecified, without complications; R64 Cachexia; Z68.1 Body mass index [BMI] 19.9 or less, adult; I48.0 Paroxysmal atrial fibrillation; J44.9 Chronic obstructive pulmonary disease, unspecified; D64.9 Anemia, unspecified; I25.10 Atherosclerotic heart disease of native coronary artery without angina pectoris; E03.9 Hypothyroidism, unspecified; W10.2XXD Fall (on)(from) incline, subsequent encounter; I25.2 Old myocardial infarction; Z95.5 Presence of coronary angioplasty implant and graft

== ENCOUNTER 2017-05-07 10:54 | Inpatient (IN) | payer MEDICARE ==
[2017-05-07 11:04] VITALS: BMI 21.4
--- NOTE | 2017-05-07 11:26 | ED PDOC ---
Arrival/HPI - General Chief Complaint: GI Problem Time Seen by Provider: 05/07/17 11:22 Historian: Patient - History of Present Illness Narrative History of Present Illness (Text): 05/07/17 11:10 86 year old F with pmh of colitis, presents to Emergency department complaining of nausea and 3x vomiting since last night at 11pm. This was followed by sharp left sided abdominal pain that is constant, still present without any exacerbating or reliev fx. Patient notes having decreased stool which is unusual as she normally has 2 to 3 stools per day after a colectomy. No fever. Time/Duration: Other (last night at 11pm) Symptom Onset: Sudden Symptom Course: Other (constant) Quality: Other (sharp abdominal pain) Associated Symptoms (Text): nausea, vomiting, decreased stool Past Medical History - Provider Review Nursing Documentation Reviewed: Yes - Infectious Disease Hx of Infectious Diseases: None - Reproductive Menopause: Yes - Cardiac Hx Hypertension: Yes - Pulmonary Hx Chronic Obstructive Pulmonary Disease (COPD): Yes - HEENT Hx HEENT Disorder: Yes ("runny nose" at times) - Endocrine/Metabolic Hx Diabetes Mellitus Type 2: Yes - Musculoskeletal/Rheumatological Hx Falls: Yes - Gastrointestinal Hx Gastrointestinal Disorders: Yes (loose stools) - Genitourinary/Gynecological Hx Reproductive Disorders: Yes (hysterectomy) - Psychiatric Hx Substance Use: No - Surgical History Hx Hysterectomy: Yes Other/Comment: thyroidectomy - Anesthesia Hx Anesthesia: Yes Hx Anesthesia Reactions: No Hx Malignant Hyperthermia: No Family/Social History - Physician Review Nursing Documentation Reviewed: Yes Family/Social History: Other (non-contributory) Smoking Status: Never Smoked Hx Alcohol Use: No Hx Substance Use: No Allergies/Home Meds Allergies/Adverse Reactions: Allergies Penicillins Allergy (Verified 05/07/17 11:06) ITCHING Home Medications: Home Meds Medication Instructions Recorded Confirmed Amiodarone HCl [Pacerone] 200 mg PO DAILY 03/24/17 05/07/17 Aspirin [[place] Aspirin] 81 mg PO DAILY 03/24/17 05/07/17 Atorvastatin [Lipitor] 80 mg PO DAILY 03/24/17 05/07/17 Clopidogrel [Plavix] 75 mg PO DAILY 03/24/17 05/07/17 Levothyroxine [Synthroid] 125 mcg PO DAILY 03/24/17 05/07/17 Lisinopril [Zestril] 2.5 mg PO DAILY 03/24/17 05/07/17 Review of Systems - Physician Review All systems were reviewed & negative as marked: Yes - Review of Systems Constitutional: absent: Fevers Respiratory: absent: SOB Cardiovascular: absent: Chest Pain Gastrointestinal: Abdominal Pain (sharp left sided abdominal pain), Stool Changes (decreased stool), Nausea, Vomiting Musculoskeletal: absent: Back Pain Neurological: absent: Headache Physical Exam Vital Signs Reviewed: Yes Vital Signs Temp Pulse Resp BP Pulse Ox 05/07/17 15:38 61 18 113/56 L 96 05/07/17 13:00 60 18 117/57 L 97 05/07/17 11:01 98.9 F 70 19 128/71 95 Appearance: Positive for: Well-Appearing, Non-Toxic, Comfortable Pain Distress: None Mental Status: Positive for: Alert and Oriented X 3 Finger Stick Blood Glucose: 233 - Systems Exam Head: Present: Atraumatic, Normocephalic Pupils: Present: PERRL Extroacular Muscles: Present: EOMI Mouth: Present: Moist Mucous Membranes Neck: Present: Normal Range of Motion Respiratory/Chest: Present: Clear to Auscultation, Good Air Exchange. No: Respiratory Distress, Accessory Muscle Use Cardiovascular: Present: Regular Rate and Rhythm. No: Murmurs Abdomen: Present: Tenderness (left sided abdominal tenderness), Distention (mild ), Normal Bowel Sounds. No: Peritoneal Signs, Rebound Back: No: CVA Tenderness Upper Extremity: No: Cyanosis, Edema Neurological: Present: GCS=15, Motor Func Grossly Intact, Normal Sensory Function Skin: Present: Warm, Dry, Normal Color. No: Rashes Psychiatric: Present: Alert, Oriented x 3 Medical Decision Making ED Course and Treatment: 05/07/17 11:33 EKG: Ordered, reviewed, and independently interpreted the EKG. Rate : 73 BPM Rhythm : NSR Interpretation : Left [place] Deviation. Non-STEMI 05/07/17 13:49 Case was discussed with Dr. Haines who is aware of plan and will follow up with patient on consult. Brett Massey who came and eval the pt in the ED. Brett Huff who will admit. - Lab Interpretations Lab Results: 05/07/17 11:41 05/07/17 11:41 Lab Results 05/07/17 11:50: pO2 92 H, VBG pH 7.40, VBG pCO2 48.0, VBG HCO3 29.7 H, VBG Total CO2 31.2 H, VBG O2 Sat (Calc) 98.0 H, VBG Base Excess 4.0 H, VBG Potassium 4.7, Glucose 206 H, Lactate 1.1, FiO2 21.0, Sodium 140.0, Chloride 105.0, Venous Blood Potassium 4.7 05/07/17 11:41: Sodium 139, Potassium 4.2, Chloride 102, Carbon Dioxide 26, Anion Gap 15, BUN 20, Creatinine 1.0, Est GFR ( Amer) > 60, Est GFR (Non- Af Amer) 53, Random Glucose 205 H, Calcium 9.2, Total Bilirubin 1.0, AST 95 H, ALT 152 H, Alkaline Phosphatase 248 H, Troponin I 0.05 D, Total Protein 6.0, Albumin 3.5, Globulin 2.6, Albumin/Globulin Ratio 1.3, Lipase 47 05/07/17 11:41: WBC 6.5 D, RBC 3.97, Hgb 10.0 L, Hct 31.8 L, MCV 80.1, MCH 25.2 , MCHC 31.4, RDW 15.4 H, Plt Count 182, MPV 11.7 H, Gran % 89.6 H, Lymph % (Auto ) 5.7 L, Pepin % (Auto) 4.3, Eos % (Auto) 0.2 L, Baso % (Auto) 0.2, Gran # 5.79, Lymph # 0.4 L, Pepin # 0.3, Eos # 0.0, Baso # 0.01 05/07/17 11:09: POC Glucose (mg/dL) 233 H - RAD Interpretation Radiology Orders: 05/07/17 11:29 ABD & PELVIS IV CONTRAST ONLY [CT] Stat - EKG Interpretation Interpreted by ED Physician: Yes Type: 12 lead EKG - Medication Orders Current Medication Orders: Aspirin (Aspirin Chewable) 81 mg PO DAILY [facility] Last Admin: 05/08/17 09:15 Dose: 81 mg Clopidogrel Bisulfate (Plavix) 75 mg PO DAILY [facility] Last Admin: 05/08/17 09:13 Dose: 75 mg Levothyroxine Sodium (Synthroid) 125 mcg PO 0600 [facility] Last Admin: 05/08/17 05:36 Dose: 125 mcg Lisinopril (Zestril) 2.5 mg PO DAILY [facility] Last Admin: 05/08/17 09:14 Dose: 2.5 mg Metoprolol Succinate (Toprol Xl) 50 mg PO BRK [facility] Last Admin: 05/08/17 09:15 Dose: 50 mg Discontinued Medications Atorvastatin Calcium (Lipitor) 80 mg PO HS [facility] Last Admin: 05/07/17 21:58 Dose: 80 mg Sodium Chloride (Sodium Chloride 0.9%) 1,000 mls @ 100 mls/hr IV .Q10H [facility] Last Admin: 05/08/17 03:06 Dose: 100 mls/hr Iohexol (Omnipaque 350 100 Ml) Confirm Administered Dose 350 mg .ROUTE .STK-MED ONE Stop: 05/07/17 13:04 Ketorolac Tromethamine (Toradol) 10 mg IVP STAT STA Stop: 05/07/17 11:54 Last Admin: 05/07/17 11:59 Dose: 10 mg Re-Assess: MAL Pain Assessment Document 05/07/17 12:59 [place] (Rec: 05/07/17 14:03 EWO [id number]) Pain Reassessment Is this a pain reassessment? Yes Sleep Is patient sleeping during reassessment? Yes Ondansetron HCl (Zofran Inj) 4 mg IVP ONCE ONE Stop: 05/07/17 11:54 Last Admin: 05/07/17 11:59 Dose: 4 mg Pneumococcal Polyvalent Vaccine (Pneumovax 23 Vaccine) 0.5 ml IM .ONCE ONE Stop: 05/07/17 17:27 - Scribe Statement The provider has reviewed the documentation as recorded by the Scribe 05/07/2017 Concetta Bingham Provider Scribe Attestation: All medical record entries made by the Scribe were at my direction and personally dictated by me. I have reviewed the chart and agree that the record accurately reflects my personal performance of the history, physical exam, medical decision making, and the department course for this patient. I have also personally directed, reviewed, and agree with the discharge instructions and disposition. Disposition/Present on Arrival - Present on Arrival Any Indicators Present on Arrival: No History of DVT/PE: No History of Uncontrolled Diabetes: No Urinary Catheter: No History of Decub. Ulcer: No History Surgical Site Infection Following: None - Disposition Have Diagnosis and Disposition been Completed?: Yes Diagnosis: Abdominal pain, Vomiting Disposition: HOSPITALIZED Disposition Time: 14:35 Patient Problems: Current Active Problems Problem Status Onset Abdominal pain Acute Vomiting Acute Condition: STABLE
[2017-05-07] MEDS: Sodium Chloride 0.9% 1,000 ML IV SCH (11:41)
[2017-05-07 11:46] LABS: BASO # 0.01 K/mm3 (0.0-2.0); BASO % 0.2 % (0.0-3.0); EOS % 0.2 % (1.5-5.0); GRAN # 5.79 (1.4-6.5); GRAN % 89.6 % (50.0-68.0); LYMPH # 0.4 (1.2-3.4); LYMPH % 5.7 % (22.0-35.0); MEAN CELL VOLUME 80.1 fl (80.0-105.0); MEAN CORPUSCULAR HEMOGLOBIN 25.2 pg (25.0-35.0); MEAN CORPUSCULAR HGB CONC 31.4 g/dl (31.0-37.0); MEAN PLATELET VOLUME 11.7 fl (7.0-11.0); MONO # 0.3 (0.1-0.6); MONO % 4.3 % (1.0-6.0); PLATELET COUNT 182 10^3/uL (120.0-450.0); RBC 3.97 10^6/uL (3.5-6.1); RED CELL DISTRIBUTION WIDTH 15.4 % (11.5-14.5); WHITE BLOOD COUNT 6.5 10^3/ul (4.5-11.0)
[2017-05-07 11:56] LABS: ALB/GLOB RATIO 1.3 (1.1-1.8); ALBUMIN 3.5 g/dL (3.0-4.8); ALT/SGPT 152 U/L (7-56); AST/SGOT 95 U/L (15-39); BLOOD UREA NITROGEN 20 mg/dL (7-21); CALCIUM 9.2 mg/dL (8.4-10.5); GFR AFRICAN-AMERICAN > 60; GFR NON-AFRICAN AMERICAN 53; LIPASE 47 U/L (23-300)
[2017-05-07 12:07] LABS: TROPONIN I 0.05 ng/mL
[2017-05-07] MEDS ORDERED: Iohexol 350 MG/100 ML VIAL ONE (13:03)
[2017-05-07 13:06] LABS: VENOUS BLOOD GAS PO2 92 mm/Hg (30-55)
--- NOTE | 2017-05-07 14:00 | CT ---
PROCEDURE: CT Abdomen and Pelvis with contrast HISTORY: Vomiting, abdominal pain. COMPARISON: 03/25/2017. CT abdomen and pelvis. TECHNIQUE: Contrast dose: 100 cc Omnipaque 350 Radiation dose: Total exam DLP = mGy-cm. This CT exam was performed using one or more of the following dose reduction techniques: Automated exposure control, adjustment of the mA and/or kV according to patient size, and/or use of iterative reconstruction technique. FINDINGS: LOWER THORAX: Approximately stable small bilateral pleural effusions and associated compressive atelectasis. Stable small pericardial effusion. LIVER: Hepatomegaly, hepatic steatosis. 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 PANCREAS: Well-circumscribed cystic mass at the junction of the body and tail of the pancreas 1.8 cm. SPLEEN: Unremarkable. ADRENALS: Unremarkable. No mass. KIDNEYS AND URETERS: Complex, solid mass measuring 2 cm upper pole right kidney. Elective followup recommended. Nonobstructing 2 mm calculus lower pole left kidney. Multiple simple cysts left kidney the largest projecting off the lower pole measures 3.2 x 3.4 cm. VASCULATURE: Unremarkable. No aortic aneurysm. BOWEL: Constipation without fecal impaction or obstruction. APPENDIX: No abnormalities to suggest acute appendicitis. No right lower quadrant inflammatory processes identified. PERITONEUM: Unremarkable. No free fluid. No free air. LYMPH NODES: Unremarkable. No enlarged lymph nodes. BLADDER: Unremarkable. REPRODUCTIVE: Prior hysterectomy. BONES: No acute fracture. OTHER FINDINGS: None. IMPRESSION: 1. No acute findings related to/accounting for the clinical presentation. 2. Cholelithiasis without CT evidence of acute cholecystitis. 3. Benign and incidental findings requiring further elective follow-up: Solid mass upper pole right kidney 2 cm. 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 evidence of acute cholecystitis. Additional benign and/or incidental findings described above. Including nonobstructing left renal calculus, hepatic masses likely hemangiomas and simple cysts left kidney.
--- NOTE | 2017-05-07 15:49 | US ---
HISTORY: abd pain COMPARISON: None. TECHNIQUE: Sonographic evaluation of the right upper quadrant of the abdomen. FINDINGS: LIVER: Measures 13.1 cm in length. Hepatopedal blood flow. Fatty infiltration manifest ultrasonographically as increased echogenicity of the liver parenchyma. Focal mass in the right hepatic lobe 2.6 x 2.9 cm. Focal mass right hepatic lobe 3.7 cm in diameter. This corresponds to findings on recent CT scan. GALLBLADDER: Cholelithiasis. Negative study for gallbladder wall thickening, pericholecystic fluid, sonographic Benitez's sign. COMMON BILE DUCT: Measures 9.6 mm. No stones. Dilated common bile duct without focal abnormality. PANCREAS: Obscured by overlying bowel gas. Non diagnostic assessment of the pancreas RIGHT KIDNEY: Measures 3.3 x 10.9 cm in length. Normal echogenicity. No calculus, mass, or hydronephrosis. AORTA: No aneurysmal dilatation. IVC: Unremarkable. OTHER FINDINGS: None . IMPRESSION: 1. Hepatomegaly, hepatic steatosis. Hepatic masses confirmed on the current study, identified on prior CT scans. This includes CT scan performed May 07, 2017. 2. Cholelithiasis. No sonographic evidence of acute cholecystitis. 3. Nonvisualization of questionable mass upper pole right kidney. This appears in part be due to technique. Follow-up advised electively. 4. Nondiagnostic assessment of the pancreas.
[2017-05-07] MEDS ORDERED: Pneumococcal 23-Valent Vaccine IM ONE (17:26)
--- NOTE | 2017-05-07 18:46 | CARD ---
APPROVED REPORT EKG Measurement Heart [id number] <Conclusion> Normal sinus rhythm Left axis deviation Right bundle branch block Inferior infarct, age undetermined Anteroseptal infarct, age undetermined Abnormal ECG
[2017-05-08] MEDS: Sodium Chloride 0.9% 1,000 ML IV SCH (03:06)
[2017-05-08] MEDS: Levothyroxine 125 MCG TAB PO SCH (05:36)
[2017-05-08 06:18] LABS: URINE BILIRUBIN NEGATIVE (NEGATIVE); URINE BLOOD LARGE (NEGATIVE); URINE COLOR YELLOW (YELLOW); URINE GLUCOSE (UA) NEGATIVE (NEGATIVE); URINE LEUKOCYTE ESTERASE NEGATIVE Leu/uL (NEGATIVE); URINE NITRATE NEGATIVE (NEGATIVE); URINE PROTEIN 30 mg/dL (<30 mg/dL); URINE UROBILINOGEN 0.2 E.U./dL (<1 E.U./dL)
[2017-05-08 06:19] LABS: URINE APPEARANCE SL CLOUDY (CLEAR)
[2017-05-08 06:42] LABS: URINE RBC 25 - 30 /hpf (0-2); URINE WBC 0 - 2 /hpf (0-6)
[2017-05-08 06:43] LABS: URINE BACTERIA FEW (NEG)
[2017-05-08 08:25] LABS: HEMOGLOBIN 8.7 g/dL (12.0-16.0); MEAN CORPUSCULAR HEMOGLOBIN 24.7 pg (25.0-35.0); MEAN CORPUSCULAR HGB CONC 30.5 g/dl (31.0-37.0); MEAN PLATELET VOLUME 11.3 fl (7.0-11.0); RBC 3.52 10^6/uL (3.5-6.1); RED CELL DISTRIBUTION WIDTH 15.5 % (11.5-14.5); WHITE BLOOD COUNT 3.3 10^3/ul (4.5-11.0)
[2017-05-08 08:42] LABS: ALB/GLOB RATIO 1.3 (1.1-1.8); ALBUMIN 2.8 g/dL (3.0-4.8); ALT/SGPT 99 U/L (7-56); AST/SGOT 56 U/L (15-39); BLOOD UREA NITROGEN 17 mg/dL (7-21); CALCIUM 8.4 mg/dL (8.4-10.5); GFR AFRICAN-AMERICAN > 60; GFR NON-AFRICAN AMERICAN 60; TROPONIN I 0.05 ng/mL
[2017-05-08] MEDS: Metoprolol Succinate 50 mg XL Tab PO SCH (09:15)
--- NOTE | 2017-05-08 09:34 | CP.PCM.CON ---
History of Present Illness - History of Present Illness History of Present Illness: this 84-year-old patient with past medical history of coronary artery disease status post PTCA of the LAD recently on aspirin and Plavix, history of atrial fibrillation on amiodarone, history of Crohn's disease status post colon resection, diabetes mellitus, dyslipidemia and hypothyroism came to the ER for complaints of nausea vomiting and also abdominal pain mainly in the epigastric and left upper quadrant area since yesterday. No diarrhea no fever. Patient was also found to have an elevated liver enzymes G a consult was requested to evaluate this PAST MEDICAL HISTORY ssignificant as above SOCIAL HISTORY denies smoking or call FAMILY HISTORY noncontributory REVIEW OF SYSTEMS positive as above other systems reviewed negative history of gait dysfunction Review of Systems - Review of Systems All systems: reviewed and no additional remarkable complaints except - Cardiovascular Cardiovascular: absent: Chest Pain, Palpitations - Respiratory Respiratory: absent: Dyspnea, Wheezing - Gastrointestinal Gastrointestinal: As Per HPI Past Patient History - Infectious Disease Hx of Infectious Diseases: None - Past Medical History & Family History Past Medical History?: Yes - Past Social History Smoking Status: Never Smoked - CARDIAC Hx Cardiac Disorders: Yes (chest pain) Hx Hypercholesterolemia: Yes Hx Hypertension: Yes Other/Comment: variscosities ble, mi 02/2017 cardiac cath with stent done at [facility] - PULMONARY Hx Chronic Obstructive Pulmonary Disease (COPD): (pt denies copd) - HEENT Hx HEENT Problems: Yes ("runny nose" at times) - ENDOCRINE/METABOLIC Hx Diabetes Mellitus Type 2: Yes (no meds) Hx Hypothyroidism: Yes (thyroidectomy) - MUSCULOSKELETAL/RHEUMATOLOGICAL Hx Falls: Yes (recent in february tripped and fell) - GASTROINTESTINAL Hx Gastrointestinal Disorders: Yes (loose stools) Other/Comment: pt has hx chronic ulcerative colitis part of her colon was removed, pt can't remember when and has been having loose stools ever since - GENITOURINARY/GYNECOLOGICAL Hx Reproductive Disorders: Yes (hysterectomy) - PSYCHIATRIC Hx Substance Use: No - SURGICAL HISTORY Hx Hysterectomy: Yes Other/Comment: thyroidectomy - ANESTHESIA Hx Anesthesia: Yes Hx Anesthesia Reactions: No Hx Malignant Hyperthermia: No Meds Allergies/Adverse Reactions: Allergies Allergy/AdvReac Type Severity Reaction Status Date / Time Penicillins Allergy ITCHING Verified 05/07/17 11:06 - Medications Medications: Current Medications Amiodarone HCl (Cordarone) 200 mg PO DAILY [facility] Aspirin (Aspirin Chewable) 81 mg PO DAILY [facility] Atorvastatin Calcium (Lipitor) 80 mg PO HS [facility] Last Admin: 05/07/17 21:58 Dose: 80 mg Clopidogrel Bisulfate (Plavix) 75 mg PO DAILY [facility] Sodium Chloride (Sodium Chloride 0.9%) 1,000 mls @ 100 mls/hr IV .Q10H [facility] Last Admin: 05/07/17 11:41 Dose: 100 mls/hr Levothyroxine Sodium (Synthroid) 125 mcg PO 0600 [facility] Lisinopril (Zestril) 2.5 mg PO DAILY [facility] Physical Exam - Constitutional Appears: No Acute Distress - Head Exam Head Exam: ATRAUMATIC, NORMOCEPHALIC - Eye Exam Eye Exam: EOMI, PERRL - ENT Exam ENT Exam: Mucous Membranes Moist, Normal Oropharynx - Neck Exam Neck exam: Negative for: Lymphadenopathy, Thyromegaly - Respiratory Exam Respiratory Exam: Clear to Auscultation Bilateral, NORMAL BREATHING PATTERN. absent: Rales, Rhonchi - Cardiovascular Exam Cardiovascular Exam: +S1, +S2. absent: JVD - GI/Abdominal Exam GI & Abdominal Exam: Soft. absent: Mass Additional comments: mmild tenderness on deep palpation in the left upper quadrant epigastric area - Extremities Exam Extremities exam: Positive for: pedal pulses present. Negative for: calf tenderness, tenderness - Neurological Exam Neurological exam: Alert, Oriented x3 - Skin Skin Exam: Normal Color, Warm Results - Vital Signs Recent Vital Signs: Last Vital Signs Temp 98.9 F 05/07/17 17:16 Pulse 60 05/07/17 17:16 Resp 18 05/07/17 17:16 BP 117/57 L 05/07/17 17:16 Pulse Ox 96 05/07/17 15:38 - Labs Result Diagrams: 05/08/17 07:00 05/08/17 07:00 Labs: Laboratory Results - last 24 hr 05/07/17 05/07/17 05/07/17 17:01 19:10 20:52 POC Glucose (mg/dL) 156 H 135 H Troponin I 0.06 - Imaging and Cardiology CT scan - abdomen Status: Image reviewed by me, Report reviewed by me Assessment & Plan - Assessment and Plan (Free Text) Assessment: 11. Left upper quadrant epigastric discomfort. Differential diagnoses should include peptic ulcer disease, hepatitis, cholelithiasis, erosive esophagitis cardiac etiology should also be considered but less likely troponin normal , no recent EKG changes 2. Abnormal LFTs the differential diagnoses include gallstone disease drug- induced patient has been on amiodarone, hepatic congestion 3. It coronary artery disease status post PCI to LAD stent 4. History of atrial fibrillation on amiodarone. Patient was on anticoagulation which was discontinued in view of this bleeding,history of fall or head trauma 5. History of Crohn's disease status post colon resection last colonoscopy a few years ago told to be in remission and not on medication now 6. Rule out right renal lesion which was noticed in the recent CAT scan this was not obvious and the previous CT done without contrast 7. Her other comorbidities include history of thyroid cancer, diabetes mellitus and dyslipidemia Plan: 1. Ultrasound scan of the abdomen to further evaluate gallbladder and CBD 2. History of hepatic hemangioma 3. Follow-up with LFTs patient has been on amiodarone that could be a contributory factor for elevated LFT 4. Hepatitis profile 5. Clear liquid diet 6. Urological evaluation for renal lesion Thank you very much for allowing us to participate n the care of the patient. We will continue to closely follow-up her care suggests further recommendations based on the clinical course - Date & Time Date: 05/07/17 Time: 14:30
--- NOTE | 2017-05-08 14:42 | CP.PCM.PN ---
Subjective - Date & Time of Evaluation Date of Evaluation: 05/08/17 Time of Evaluation: 11:30 - Subjective Subjective: feeling better. No complaints of abdominal pain now no vomiting. Tolerating the diet had an episode of loose bowel movement. 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 amiodarone has been discontinued as per the patient Objective - Vital Signs/Intake and Output Vital Signs (last 24 hours): Temp Pulse Resp BP Pulse Ox 98.5 F 54 L 18 104/53 L 95 05/08/17 07:30 05/08/17 07:30 05/08/17 07:30 05/08/17 09:14 05/08/17 07:30 Intake and Output: 05/08/17 05/08/17 06:59 18:59 Intake Total 540 120 Balance 540 120 - Medications Medications: Current Medications Aspirin (Aspirin Chewable) 81 mg PO DAILY [facility] Last Admin: 05/08/17 09:15 Dose: 81 mg Clopidogrel Bisulfate (Plavix) 75 mg PO DAILY [facility] Last Admin: 05/08/17 09:13 Dose: 75 mg Levothyroxine Sodium (Synthroid) 125 mcg PO 0600 [facility] Last Admin: 05/08/17 05:36 Dose: 125 mcg Lisinopril (Zestril) 2.5 mg PO DAILY [facility] Last Admin: 05/08/17 09:14 Dose: 2.5 mg Metoprolol Succinate (Toprol Xl) 50 mg PO BRK [facility] Last Admin: 05/08/17 09:15 Dose: 50 mg - Labs Labs: 05/08/17 07:00 05/08/17 07:00 - Constitutional Appears: No Acute Distress - Head Exam Head Exam: ATRAUMATIC, NORMOCEPHALIC - Eye Exam Eye Exam: EOMI, PERRL - ENT Exam ENT Exam: Mucous Membranes Moist - Neck Exam Neck Exam: absent: Lymphadenopathy, Tenderness - Respiratory Exam Respiratory Exam: NORMAL BREATHING PATTERN. absent: Rales, Rhonchi - Cardiovascular Exam Cardiovascular Exam: +S1, +S2. absent: JVD - GI/Abdominal Exam GI & Abdominal Exam: Soft, Normal Bowel Sounds. absent: Tenderness, Mass - Extremities Exam Extremities Exam: absent: Calf Tenderness, Full ROM Assessment and Plan - Assessment and Plan (Free Text) Assessment: 1. Abnormal LFTs. A Scan Was Reviewed and Showed Multiple Gallstones and CBD Was Prominent 9.4 Mm No Obvious Stone noticed in CBD. No tenderness in right upper quadrant or epigastric area now. The etiology for elevated LFT unclear the differential diagnoses include drug-induced secondary to amiodarone, hepatic congestion and also CBD stone 2. History of atrial fibrillation on amiodarone which has been discontinued and now with follow-up LFTs 3. Anemia dropping blood count patient was on IV fluid this could be secondary to hydration however patient is also on aspirin and Plavix rule out any GI source of blood loss would empirically continue the patient on PPI. Patient was on anticoagulation which was discontinued in view of the GI bleeding and also history of fall and head trauma 4. History of Crohn's disease status post colon resection patient was on surveillance for a long time. He was told by her decatizer no need for further evaluation and the colitis has been in remission 5. Rule out right kidney renal lesion noticed in the recent CT done with contrast. History of renal cysts urology clinic follow-up 6. Coronary artery disease status post non-ST segment VT status post PCI and stent placement to LAD on aspirin and Plavix 7. Left upper quadrant abdominal discomfort improved 8. Episodes of loose bowel movements the differential diagnosis should include gastritis, C. difficile, intermittent bowel disease 9. Hepatic lesions history of hemangioma 10.. Other differential diagnoses included history of thyroid cancer, diabetes mellitus, dyslipidemia PLAN 1. Slowly advance soft cardiac diabetic diet 2. MRI of the abdomen with MRCP to further evaluate common bile duct, also renal and hepatic lesion lesions 3. Close follow up on the hemoglobin and hematocrit 4. Follow up LFT 5. Discussed with the patient and also patient's who were at the bedside
--- NOTE | 2017-05-08 17:37 | CON ---
DATE: 05/08/2017 REQUESTING PHYSICIAN: Dr. Mo REASON FOR CONSULTATION: Abdominal pain, known coronary artery disease. HISTORY OF PRESENT ILLNESS: This is an 86-year-old woman, well known to me with a history of coronary artery disease status post recent myocardial infraction and PCI of her LAD as well as paroxysmal atrial fibrillation, who presented to the emergency room with complaints of nausea, vomiting, and abdominal pain. She states that she vomited twice yesterday and had left lower quadrant pain. She denied any chest pain. Her electrocardiogram was unchanged. She was admitted for evaluation. She is seen this morning resting comfortably in bed. She denies any nausea or abdominal pain. CT of the abdomen had revealed hepatomegaly with hepatic steatosis and masses consistent with hepatic hemangiomas, cholelithiasis was seen with no evidence of acute cholecystitis, a pancreatic cystic mass was present as well. A 2 mm calculus was noted in the left lower pole of the left kidney, which was nonobstructing. Multiple cysts were seen in the left kidney and a complex solid mass was present in the right kidney. She presented approximately two months ago with a non-ST segment elevation myocardial infraction, was found to have an occluded LAD for which she underwent stenting. She had moderate LV dysfunction following her infract. She also had paroxysmal atrial fibrillation, but was not anticoagulated because of rectal bleeding. PAST MEDICAL HISTORY: Notable for the problems mentioned above. She has undergone a prior hysterectomy as well as partial thyroidectomy, she has a history of hypothyroidism as a result. Diet-controlled diabetes mellitus. CURRENT MEDICATIONS: Include amiodarone 200 mg daily, aspirin 81 mg daily, Plavix 75 mg daily, Lipitor 80 mg daily, Lisinopril 2.5 mg daily and Synthroid 125 mcg daily. ALLERGIES: SHE HAS HAD REACTION TO PENICILLIN IN THE PAST. SOCIAL HISTORY: She is , lives with her . FAMILY HISTORY: Both parents from age-related illness. REVIEW OF SYSTEMS: A 10-point review of systems otherwise unremarkable. PHYSICAL EXAMINATION: GENERAL: She is a fairly healthy-appearing very elderly woman. VITAL SIGNS: Her blood pressure is 116/56 with a pulse of 60, respirations are 14, she is afebrile. HEENT: Normocephalic and atraumatic. NECK: Supple. No JVD noted. CHEST: Clear to auscultation and percussion. HEART: PMI displaced laterally with soft systolic murmur at the left sternal border as well as at the apex. ABDOMEN: Soft and nontender with normoactive bowel sounds at the present time. EXTREMITIES: No clubbing, cyanosis, or edema. SKIN: Warm and dry. PSYCHIATRIC: No mood and affect. NEUROLOGIC: Alert and oriented x3. No gross motor or sensory is appreciable. LABORATORY DATA: White count is 6.5, hemoglobin and hematocrit 10 and 31.8 with a platelet count of 182,000. Potassium 4.2, BUN and creatinine of 20 and 1.0, glucose is 233. AST and ALT were 95 and 152 respectively with alkaline phosphatase 245. Two sets of cardiac enzymes are normal. Electrocardiogram reveals sinus rhythm with an inferolateral infarct pattern and right bundle branch block with left axis deviation. Chest x-ray is pending. CT scan as noted above. IMPRESSION: 1. Abdominal pain appears to have resolved, exact etiology uncertain, does have significant abnormalities noted on CT scan, but is unclear if these are chronic problems and related to her current presentation. 2. Known coronary artery disease status post recent infarct and PCI, appears clinically stable at the present time. 3. Elevated transaminases possibly secondary to Lipitor and/or amiodarone use. 4. History of paroxysmal atrial fibrillation in the past, currently in sinus rhythm. 5. Rest of problems as noted. RECOMMENDATION: At this time, her amiodarone and Lipitor will be discontinued. Beta-chantal therapy will be instituted in place of amiodarone. If she has recurrence of atrial fibrillation, a decision need to be made regarding the appropriateness of anticoagulation. If any further GI or urologic testing is necessary, she is stable from a cardiac standpoint to proceed. Of note, she was started on IV fluids in the emergency room and this will be discontinued as she is clinically better and does have significant LV dysfunction. Thank you for this consultation. We are happy to follow along as needed. Perez Casillas MD
--- NOTE | 2017-05-09 00:22 | CP.PCM.PN ---
Subjective - Date & Time of Evaluation Date of Evaluation: 05/09/17 Time of Evaluation: 00:21 - Subjective Subjective: Patient was seen at bedside. She complained of left side pain in lower chest/flank. Pain is mild, at 6/10. Denies injury. No chest pain, nausea ,sweating , palpitation, sob. ROS negative except as mentioned above. Medical record was reviewed. This 86 year old white woman was admitted with nausea, vomiting, abdominal pain epigastric plus LUQ. Has PMH of CAD, PTCA, atrial fibrillation, Crohn's disease,DM, hypothyroidsim, dyslipidemia. Objective - Vital Signs/Intake and Output Vital Signs (last 24 hours): Temp Pulse Resp BP Pulse Ox 98.5 F 59 L 18 144/65 96 05/08/17 16:23 05/08/17 16:23 05/08/17 16:23 05/08/17 16:23 05/08/17 16:23 Intake and Output: 05/08/17 05/09/17 18:59 06:59 Intake Total 120 660 Balance 120 660 - Medications Medications: Current Medications Aspirin (Aspirin Chewable) 81 mg PO DAILY [facility] Last Admin: 05/08/17 09:15 Dose: 81 mg Clopidogrel Bisulfate (Plavix) 75 mg PO DAILY [facility] Last Admin: 05/08/17 09:13 Dose: 75 mg Levothyroxine Sodium (Synthroid) 125 mcg PO 0600 [facility] Last Admin: 05/08/17 05:36 Dose: 125 mcg Lisinopril (Zestril) 2.5 mg PO DAILY [facility] Last Admin: 05/08/17 09:14 Dose: 2.5 mg Metoprolol Succinate (Toprol Xl) 50 mg PO BRK [facility] Last Admin: 05/08/17 09:15 Dose: 50 mg - Labs Labs: 05/08/17 07:00 05/08/17 07:00 Lab Studies 05/08/17 05/08/17 05/08/17 Range/Units 07:27 07:00 07:00 WBC 3.3 L D (4.5-11.0) 10^3/ul RBC 3.52 (3.5-6.1) 10^6/uL Hgb 8.7 L (12.0-16.0) g/dL Hct 28.5 L (36.0-48.0) % MCV 81.0 (80.0-105.0) fl MCH 24.7 L (25.0-35.0) pg MCHC 30.5 L (31.0-37.0) g/dl RDW 15.5 H (11.5-14.5) % Plt Count 153 (120.0-450.0) 10^3/uL MPV 11.3 H (7.0-11.0) fl Sodium 141 (132-148) mmol/L Potassium 4.0 (3.6-5.0) mmol/L Chloride 107 (98-107) mmol/L Carbon Dioxide 27 (21-33) mmol/L Anion Gap 11 (10-20) BUN 17 (7-21) mg/dL Creatinine 0.9 (0.5-1.4) mg/dL Est GFR ( Amer) > 60 Est GFR (Non-Af Amer) 60 POC Glucose (mg/dL) 121 H (65-110) mg/dL Random Glucose 105 (70-110) mg/dL Calcium 8.4 (8.4-10.5) mg/dL Total Bilirubin 0.9 (0.2-1.3) mg/dL AST 56 H (15-39) U/L ALT 99 H (7-56) U/L Alkaline Phosphatase 201 H (38-133) U/L Troponin I 0.05 ng/mL Total Protein 5.0 L (5.8-8.3) g/dL Albumin 2.8 L (3.0-4.8) g/dL Globulin 2.2 gm/dL Albumin/Globulin Ratio 1.3 (1.1-1.8) Urine Color (YELLOW) Urine Appearance (CLEAR) Urine pH (4.7-8.0) Ur Specific [place] (1.005-1.035) Urine Protein (<30 mg/dL) mg/dL Urine Glucose (UA) (NEGATIVE) mg/dL Urine Ketones (NEGATIVE) mg/dL Urine Blood (NEGATIVE) Urine Nitrate (NEGATIVE) Urine Bilirubin (NEGATIVE) Urine Urobilinogen (<1 E.U./dL) E.U./dL Ur Leukocyte Esterase (NEGATIVE) Michelle/uL Urine RBC (0-2) /hpf Urine WBC (0-6) /hpf Urine Bacteria (NEG) 05/08/17 Range/Units 05:38 WBC (4.5-11.0) 10^3/ul RBC (3.5-6.1) 10^6/uL Hgb (12.0-16.0) g/dL Hct (36.0-48.0) % MCV (80.0-105.0) fl MCH (25.0-35.0) pg MCHC (31.0-37.0) g/dl RDW (11.5-14.5) % Plt Count (120.0-450.0) 10^3/uL MPV (7.0-11.0) fl Sodium (132-148) mmol/L Potassium (3.6-5.0) mmol/L Chloride (98-107) mmol/L Carbon Dioxide (21-33) mmol/L Anion Gap (10-20) BUN (7-21) mg/dL Creatinine (0.5-1.4) mg/dL Est GFR ( Amer) Est GFR (Non-Af Amer) POC Glucose (mg/dL) (65-110) mg/dL Random Glucose (70-110) mg/dL Calcium (8.4-10.5) mg/dL Total Bilirubin (0.2-1.3) mg/dL AST (15-39) U/L ALT (7-56) U/L Alkaline Phosphatase (38-133) U/L Troponin I ng/mL Total Protein (5.8-8.3) g/dL Albumin (3.0-4.8) g/dL Globulin gm/dL Albumin/Globulin Ratio (1.1-1.8) Urine Color Yellow (YELLOW) Urine Appearance Sl cloudy (CLEAR) Urine pH 6.0 (4.7-8.0) Ur Specific [place] 1.020 (1.005-1.035) Urine Protein 30 H (<30 mg/dL) mg/dL Urine Glucose (UA) Negative (NEGATIVE) mg/dL Urine Ketones Negative (NEGATIVE) mg/dL Urine Blood Large H (NEGATIVE) Urine Nitrate Negative (NEGATIVE) Urine Bilirubin Negative (NEGATIVE) Urine Urobilinogen 0.2 (<1 E.U./dL) E.U./dL Ur Leukocyte Esterase Negative (NEGATIVE) Michelle/uL Urine RBC 25 - 30 (0-2) /hpf Urine WBC 0 - 2 (0-6) /hpf Urine Bacteria Few (NEG) - Constitutional Appears: Well, No Acute Distress - Head Exam Head Exam: ATRAUMATIC, NORMAL INSPECTION, NORMOCEPHALIC - Eye Exam Eye Exam: Normal appearance - ENT Exam ENT Exam: Normal External Ear Exam - Neck Exam Neck Exam: Normal Inspection - Respiratory Exam Respiratory Exam: NORMAL BREATHING PATTERN - Cardiovascular Exam Cardiovascular Exam: absent: JVD - GI/Abdominal Exam GI & Abdominal Exam: Diminished Bowel Sounds. absent: Distended - Rectal Exam Rectal Exam: Deferred - Exam Additional comments: Deferred. - Extremities Exam Extremities Exam: Normal Inspection - Back Exam Back Exam: NORMAL INSPECTION - Neurological Exam Neurological Exam: Alert, Oriented x3 - Psychiatric Exam Psychiatric exam: Normal Affect, Normal Mood - Skin Skin Exam: Normal Color Assessment and Plan - Assessment and Plan (Free Text) Assessment: left side pain. CAD. Atrial fibrillation. DM. Crohn's disease. Hypothyroidism. Plan: Tylenol 650 mg po stat. Continue present management.
[2017-05-09] MEDS: Levothyroxine 125 MCG TAB PO SCH (05:36)
--- NOTE | 2017-05-09 08:02 | HP ---
DATE: 05/08/2017 CHIEF COMPLAINT AND HISTORY OF PRESENT ILLNESS: This is an 86-year-old female who is coming into the hospital, after she was complaining of abdominal pain that was left sided. She also was complaining of nausea, had 3 episodes of vomiting the night before coming into the ER. The patient says that the pain is sharp and is on the left side, it was improving, so she was admitted for further evaluation. She denies any fevers or chills. She has no nausea or vomiting this morning. When I saw her, the patient has no fever or chills, no headaches or dizziness. 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 Massey in the past. She was discharged from the hospital about 1 month ago, where she was on the TCU unit as well. REVIEW OF SYSTEMS: All other review of symptoms are within normal limits, except what was mentioned. PAST MEDICAL HISTORY: Hypertension, dyslipidemia, diabetes type 2, hypothyroidism, and gait dysfunction. PAST SURGICAL HISTORY: Hysterectomy. SOCIAL HISTORY: She denies smoking or drinking. FAMILY HISTORY: Noncontributory. HOME MEDICATIONS: Amiodarone, aspirin, atorvastatin, Plavix, Synthroid, Vistaril. PHYSICAL EXAMINATION: VITAL SIGNS: The patient has a temperature of 98.5, pulse of 59, blood pressure 144/65, respirations 18. O2 saturation 96%. Height is 5 feet 4 inches and weight is 125 pounds. BMI 21.5. GENERAL: The patient lying in bed, uncomfortable and in no acute distress. HEENT: Atraumatic and normocephalic. Anicteric sclerae. Moist mucosa. [place] conjunctivae. No oral lesions. NECK: No JVD, anterior and posterior adenopathy, thyromegaly or bruits. CARDIOVASCULAR: S1 and S2 regular. No murmur, rubs or gallop. LUNGS: Clear to auscultation bilaterally. No wheezes, rales or rhonchi. ABDOMEN: Bowel sounds are positive. Soft, nontender and nondistended. No hepatosplenomegaly. No rebound and no guarding EXTREMITIES: No cyanosis, clubbing or edema. NEUROLOGIC: No facial asymmetry. Tongue is midline. No uvula deviation. Power is 5/5 upper extremity and lower extremity. Sensation intact in upper extremity and lower extremity. PSYCHIATRIC: She is awake, alert and oriented x3. No anxiety or depression. She has normal affect. GENITOURINARY: No CVA tenderness. VASCULAR: 2+ pulses in the carotid pulses and pedal pulses. SKIN: No erythema or nodules. SPINE: Shows normal curvature. EXTREMITIES: No Cyanosis and clubbing, no edema. LABORATORY DATA: White count of 6.5, hemoglobin of 10.0, platelet count is 182. Urine shows protein is 30, glucose is negative, ketones are negative, blood is large. Sodium 141, potassium is 4.0, AST is 56, ALT is 99. Alkaline phosphatase of 201, alkaline phosphatase yesterday was 248. Troponin 0.05, repeat is 0.06, third troponin is 0.05. Albumin is 2.8. Urine shows glucose is negative, ketones are negative, blood is large. CT of the abdomen and pelvis done shows no acute findings, there is cholelithiasis, there is a small mass in the right upper pole of the kidney that is 2 cm and in the right kidney. There is a cystic mass in the pancreas is 1.8 cm, it is cholelithiasis. An ultrasound done shows hepatomegaly, hepatic steatosis, cholelithiasis, the common bile duct is 9.6 mm, no stones, there is a dilated common bile duct without focal abnormality. There is an EKG that shows sinus rhythm, left axis deviation, right bundle branch block. ASSESSMENT: 1. Abdominal pain, resolved. 2. Dilated common bile duct 9.6 mm. 3. Right kidney mass 2 cm. 4. 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 5. Cholelithiasis. 6. Elevated alkaline phosphatase. 7. Atrial fibrillation, on amiodarone, not discontinued. 8. Crohn's disease, stable. 9. History of status post colon resection. 10. Coronary artery disease. PLAN: The patient is currently admitted to the hospital for evaluation by GI, this is patient of Dr. Massey regarding the case. The patient is on Synthroid for hypothyroidism. She is on lisinopril for hypertension. She is on Plavix and aspirin for her coronary artery disease. She was on metoprolol as well, she was seen by Dr. Casillas. The abdominal pain is resolved. We will get urology to evaluate the patient for the renal mass. She does have elevated transaminases, most of an alkaline phosphatase is mildly elevated. She is being followed by Dr. Massey. I did speak to Dr. Rivera regarding the case, he gave an update also spoke to the patient's daughter, Arely to give an update and the patient's diagnoses and plan of care. She has asked for a copy of the patient's radiology, which includes the ultrasound of the CAT scan as well as the previous studies, so she can have it evaluated by another family member who is a radiologist, I have okayed this and left a nurse, Summer to ask radiology to may copy for her. We will await further input from Dr. Morrison for urology regarding the renal mass, we will also have the patient get the evaluation with physical therapy. Elías Huff MD
--- NOTE | 2017-05-09 08:11 | CP.PCM.PN ---
Subjective - Date & Time of Evaluation Date of Evaluation: 05/09/17 Time of Evaluation: 07:00 - Subjective Subjective: Stable on 5R. No CP or SOB. No abd pain now but had some left flank discomfort during the night. Soft diet. V/S noted. PE Lungs: clear Cor.: S1S2 Abd.: soft Ext.: no edema Neuro.: alert Imaging studies noted. Objective - Vital Signs/Intake and Output Vital Signs (last 24 hours): Temp Pulse Resp BP Pulse Ox 99.1 F 66 18 133/62 96 05/09/17 07:30 05/09/17 07:30 05/09/17 07:30 05/09/17 07:30 05/09/17 07:30 Intake and Output: 05/09/17 05/09/17 06:59 18:59 Intake Total 840 Balance 840 - Medications Medications: Current Medications Aspirin (Aspirin Chewable) 81 mg PO DAILY [facility] Last Admin: 05/08/17 09:15 Dose: 81 mg Clopidogrel Bisulfate (Plavix) 75 mg PO DAILY [facility] Last Admin: 05/08/17 09:13 Dose: 75 mg Levothyroxine Sodium (Synthroid) 125 mcg PO 0600 [facility] Last Admin: 05/09/17 05:36 Dose: 125 mcg Lisinopril (Zestril) 2.5 mg PO DAILY [facility] Last Admin: 05/08/17 09:14 Dose: 2.5 mg Metoprolol Succinate (Toprol Xl) 50 mg PO BRK [facility] Last Admin: 05/08/17 09:15 Dose: 50 mg - Labs Labs: 05/08/17 07:00 05/08/17 07:00 Assessment and Plan - Assessment and Plan (Free Text) Assessment: Abd. pain, nausea and vomiting CAD/Recent OR/PCI LAD/Mod. LVD PAF Diabetes Hypothyroidism S/P partial thyroidectomy S/P hysterectomy Gall Stones Renal Stones and Cyst Hepatic Steatosis and Masses (?hemangiomas) on CT Anemia Plan: As per GI: MR imaging planned As per Dr. Huff Continue metoprolol, ASA, Plavix No amio. or statin for now OOB as sapphire.
[2017-05-09] MEDS: Metoprolol Succinate 50 mg XL Tab PO SCH (09:31)
--- NOTE | 2017-05-09 12:27 | CP.PCM.PN ---
<Rosa Isela Fields - Last Filed: 05/09/17 12:27> Subjective - Date & Time of Evaluation Date of Evaluation: 05/09/17 Time of Evaluation: 09:50 - Subjective Subjective: Seen and examined at the bedside earlier today, chart was reviewed. Patient is awake and alert in bed denies any further episodes of nausea, vomiting, had abdominal pain last night, no acute distress this morning. He did have a BM last night no reports of any melena or bright red blood per rectum. Tolerated breakfast, no episodes of nausea or vomiting. Objective - Vital Signs/Intake and Output Vital Signs (last 24 hours): Temp Pulse Resp BP Pulse Ox 99.1 F 66 18 133/62 96 05/09/17 07:30 05/09/17 07:30 05/09/17 07:30 05/09/17 09:32 05/09/17 07:30 Intake and Output: 05/09/17 05/09/17 06:59 18:59 Intake Total 840 Balance 840 - Medications Medications: Current Medications Aspirin (Aspirin Chewable) 81 mg PO DAILY [facility] Last Admin: 05/09/17 09:31 Dose: 81 mg Clopidogrel Bisulfate (Plavix) 75 mg PO DAILY [facility] Last Admin: 05/09/17 09:31 Dose: 75 mg Levothyroxine Sodium (Synthroid) 125 mcg PO 0600 [facility] Last Admin: 05/09/17 05:36 Dose: 125 mcg Lisinopril (Zestril) 2.5 mg PO DAILY [facility] Last Admin: 05/09/17 09:32 Dose: 2.5 mg Metoprolol Succinate (Toprol Xl) 50 mg PO K [facility] Last Admin: 05/09/17 09:31 Dose: 50 mg - Labs Labs: 05/08/17 07:00 05/08/17 07:00 - Constitutional Appears: No Acute Distress - Eye Exam Eye Exam: Normal appearance. absent: Scleral icterus - ENT Exam ENT Exam: Mucous Membranes Moist - Neck Exam Neck Exam: Normal Inspection - Respiratory Exam Respiratory Exam: Clear to Ausculation Bilateral, NORMAL BREATHING PATTERN. absent: Respiratory Distress - Cardiovascular Exam Cardiovascular Exam: +S1 - GI/Abdominal Exam GI & Abdominal Exam: Soft, Normal Bowel Sounds. absent: Guarding, Tenderness, Rebound - Extremities Exam Extremities Exam: Normal Capillary Refill. absent: Calf Tenderness, Pedal Edema - Neurological Exam Neurological Exam: Alert, Awake, Oriented x3 - Skin Skin Exam: Dry, Warm Assessment and Plan - Assessment and Plan (Free Text) Assessment: Assessment: 1. Abnormal LFTs. A Scan Was Reviewed and Showed Multiple Gallstones and CBD Was Prominent 9.4 Mm No Obvious Stone noticed in CBD. No tenderness in right upper quadrant or epigastric area now. The etiology for elevated LFT unclear the differential diagnoses include drug-induced secondary to amiodarone, hepatic congestion and also CBD stone 2. History of atrial fibrillation on amiodarone which has been discontinued and now with follow-up LFTs 3. Anemia dropping blood count patient was on IV fluid this could be secondary to hydration however patient is also on aspirin and Plavix rule out any GI source of blood loss would empirically continue the patient on PPI. Patient was on anticoagulation which was discontinued in view of the GI bleeding and also history of fall and head trauma 4. History of Crohn's disease status post colon resection patient was on surveillance for a long time. He was told by her mobile developer no need for further evaluation and the colitis has been in remission 5. Rule out right kidney renal lesion noticed in the recent CT done with contrast. History of renal cysts urology clinic follow-up 6. Coronary artery disease status post non-ST segment [place] status post PCI and stent placement to LAD on aspirin and Plavix 7. Left upper quadrant abdominal discomfort improved 8. Episodes of loose bowel movements the differential diagnosis should include gastritis, C. difficile, intermittent bowel disease 9. Hepatic lesions history of hemangioma 10. Other differential diagnoses included history of thyroid cancer, diabetes mellitus, dyslipidemia PLAN 1. continue soft cardiac diabetic diet 2. pending MRI of the abdomen with MRCP to further evaluate common bile duct, also renal and hepatic lesion lesions 3. follow up on the hemoglobin and hematocrit 4. Follow up LFT 5. give a dose of MiraLAX 6. OFF Amiodarone Seen and discussed with Dr. Massey. <Susan Massey V - Last Filed: 05/09/17 21:39> Objective - Vital Signs/Intake and Output Vital Signs (last 24 hours): Temp Pulse Resp BP Pulse Ox 98.9 F 59 L 20 126/63 93 L 05/09/17 16:00 05/09/17 16:00 05/09/17 16:00 05/09/17 16:00 05/09/17 16:00 Intake and Output: 05/09/17 05/10/17 18:59 06:59 Intake Total 720 Balance 720 - Medications Medications: Current Medications Aspirin (Aspirin Chewable) 81 mg PO DAILY [facility] Last Admin: 05/09/17 09:31 Dose: 81 mg Clopidogrel Bisulfate (Plavix) 75 mg PO DAILY [facility] Last Admin: 05/09/17 09:31 Dose: 75 mg Levothyroxine Sodium (Synthroid) 125 mcg PO 0600 [facility] Last Admin: 05/09/17 05:36 Dose: 125 mcg Lisinopril (Zestril) 2.5 mg PO DAILY [facility] Last Admin: 05/09/17 09:32 Dose: 2.5 mg Metoprolol Succinate (Toprol Xl) 50 mg PO BRK [facility] Last Admin: 05/09/17 09:31 Dose: 50 mg Attending/Attestation - Attestation I have personally seen and examined this patient.: Yes I have fully participated in the care of the patient.: Yes I have reviewed all pertinent clinical information, including history, physical exam and plan: Yes Notes (Text): patient is tolerating diet. On examination abdomen soft no tenderness. Plan for MRCP and MRI of the abdomen today. Follow-up of LFT Patient is off amiodarone We will continue to closely follow up her care and suggest further recommendations based on the clinical course
[2017-05-09] MEDS ORDERED: POLYETHYLENE GLYCOL 3350 17 GM/Dose PACKET PO ONE (12:28)
--- NOTE | 2017-05-09 15:07 | PN ---
DATE: 05/09/2017 SUBJECTIVE: The patient has no complaint of any chest pain. No shortness of breath. She states she did have left flank abdominal pain that began yesterday, it is better after Tylenol. No nausea. No vomiting. She is able to tolerate her diet. PHYSICAL EXAMINATION: VITAL SIGNS: Temperature is 99.1, pulse is 66, blood pressure 133/62, respirations 18, O2 saturation is 96%. GENERAL: The patient is lying in bed, flat, comfortable. HEENT: No oral lesion. Anicteric sclerae. Moist mucosa. NECK: No JVD, adenopathy, or thyromegaly. CARDIOVASCULAR: S1 and S2, regular. No murmurs, rubs, or gallops. LUNGS: Clear to auscultation bilaterally. No wheeze, rales, or rhonchi. ABDOMEN: Bowel sounds are positive, soft, nontender and nondistended. EXTREMITIES: no cyanosis, clubbing or edema. LABORATORY DATA: No new labs. ASSESSMENT: 1. Life-sided abdominal pain, resolved. 2. Dilated common bile duct 9.6 mm. 3. Right kidney mass 2 cm. 4. 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 5. Cholelithiasis. 6. Elevated alkaline phosphatase. 7. History of atrial fibrillation. 8. Crohn's disease. 9. Coronary artery disease. 10.Transaminitis with elevated alkaline phosphate. PLAN: The patient is currently comfortable. MRCP has been ordered for the dilated common bile duct. I did speak to the patient's daughterArely yesterday to give an update of the patient's diagnoses and plan of care. She was on amiodarone, this may be the cause of the mild elevated LFTs. The patient is going to be on aspirin and Plavix for her coronary artery disease. She is on Synthroid for her hypothyroidism. She is on Zestril for her hypertension. The patient also awaiting for urology evaluation. I also gave information to staff to have a radiology make a copy of CD with all this patient's radiology information to give to the daughter. There was a family member who was a radiologist. Elías Huff MD
[2017-05-09] MEDS ORDERED: Gadodiamide 287 MG/ML VIAL (15ML) IV ONE (16:59)
--- NOTE | 2017-05-10 06:40 | CP.PCM.PN ---
Subjective - Date & Time of Evaluation Date of Evaluation: 05/10/17 Time of Evaluation: 06:38 - Subjective Subjective: Patient was seen because she complained of pain in her left side. Has no other complaints now. Pain is mild. Similar pain was helped by tylenol the day before. Medical record was reviewed. 86 year old white woman was admitted with vomiting, nausea, abdominal pain epigastric plus LUQ. PMH of DM, hypothyroidsim, CAD, PTCA, atrial fibrillation, Crohn's disease, dyslipidemia. Objective - Vital Signs/Intake and Output Vital Signs (last 24 hours): Temp Pulse Resp BP Pulse Ox 98.9 F 59 L 20 126/63 93 L 05/09/17 16:00 05/09/17 16:00 05/09/17 16:00 05/09/17 16:00 05/09/17 16:00 Intake and Output: 05/09/17 05/10/17 18:59 06:59 Intake Total 720 720 Balance 720 720 - Medications Medications: Current Medications Aspirin (Aspirin Chewable) 81 mg PO DAILY [facility] Last Admin: 05/09/17 09:31 Dose: 81 mg Clopidogrel Bisulfate (Plavix) 75 mg PO DAILY [facility] Last Admin: 05/09/17 09:31 Dose: 75 mg Levothyroxine Sodium (Synthroid) 125 mcg PO 0600 [facility] Last Admin: 05/09/17 05:36 Dose: 125 mcg Lisinopril (Zestril) 2.5 mg PO DAILY [facility] Last Admin: 05/09/17 09:32 Dose: 2.5 mg Metoprolol Succinate (Toprol Xl) 50 mg PO [facility] Last Admin: 05/09/17 09:31 Dose: 50 mg - Constitutional Appears: Well, No Acute Distress - Head Exam Head Exam: ATRAUMATIC, NORMAL INSPECTION, NORMOCEPHALIC - Eye Exam Eye Exam: Normal appearance - ENT Exam ENT Exam: Normal External Ear Exam - Neck Exam Neck Exam: Normal Inspection - Respiratory Exam Respiratory Exam: NORMAL BREATHING PATTERN - Cardiovascular Exam Cardiovascular Exam: absent: JVD - GI/Abdominal Exam GI & Abdominal Exam: Normal Bowel Sounds. absent: Distended, Tenderness - Rectal Exam Rectal Exam: Deferred - Exam Additional comments: Deferred. - Extremities Exam Extremities Exam: Normal Inspection - Back Exam Back Exam: NORMAL INSPECTION - Neurological Exam Neurological Exam: Alert, Oriented x3 - Psychiatric Exam Psychiatric exam: Normal Affect, Normal Mood - Skin Skin Exam: Normal Color Assessment and Plan - Assessment and Plan (Free Text) Assessment: Left side pain. CAD. DM. Hypothyroidism. Dyslipidemia. Crohn's disease. Atroal fibrillation. Plan: Tylenol 650 mg PO stat. Continue present management.
[2017-05-10 07:12] LABS: BASO # 0.02 K/mm3 (0.0-2.0); BASO % 0.5 % (0.0-3.0); EOS # 0.1 (0.0-0.7); EOS % 1.8 % (1.5-5.0); GRAN # 3.49 (1.4-6.5); GRAN % 79.1 % (50.0-68.0); HEMOGLOBIN 9.3 g/dL (12.0-16.0); LYMPH # 0.4 (1.2-3.4); LYMPH % 8.4 % (22.0-35.0); MEAN CORPUSCULAR HEMOGLOBIN 24.8 pg (25.0-35.0); MEAN PLATELET VOLUME 11.3 fl (7.0-11.0); MONO # 0.5 (0.1-0.6); MONO % 10.2 % (1.0-6.0); PLATELET COUNT 159 10^3/uL (120.0-450.0); RBC 3.75 10^6/uL (3.5-6.1); RED CELL DISTRIBUTION WIDTH 15.6 % (11.5-14.5); WHITE BLOOD COUNT 4.4 10^3/ul (4.5-11.0)
[2017-05-10 07:17] LABS: ALB/GLOB RATIO 1.3 (1.1-1.8); ALBUMIN 2.9 g/dL (3.0-4.8); ALT/SGPT 82 U/L (7-56); AST/SGOT 46 U/L (15-39); BLOOD UREA NITROGEN 14 mg/dL (7-21); CALCIUM 8.5 mg/dL (8.4-10.5); GFR AFRICAN-AMERICAN > 60; GFR NON-AFRICAN AMERICAN 60
[2017-05-10] MEDS: Levothyroxine 125 MCG TAB PO SCH (07:30)
[2017-05-10 07:40] VITALS: RESP 18
[2017-05-10] MEDS: Metoprolol Succinate 50 mg XL Tab PO SCH (08:10)
--- NOTE | 2017-05-10 10:46 | CP.PCM.PN ---
<Rosa Isela Fields - Last Filed: 05/10/17 11:00> Subjective - Date & Time of Evaluation Date of Evaluation: 05/10/17 Time of Evaluation: 08:15 - Subjective Subjective: S&E at bedside, chart reviewed. Had multiple semi loose BM, no bleeding, dose of Miralax not given. Abdominal pain better. Eating well. No N/V. No acute overnight events reported. Had MRCP/MRI done yesterday, report still pending. Objective - Vital Signs/Intake and Output Vital Signs (last 24 hours): Temp Pulse Resp BP Pulse Ox 98.4 F 59 L 18 131/88 94 L 05/10/17 07:30 05/10/17 07:30 05/10/17 07:30 05/10/17 08:10 05/10/17 07:30 Intake and Output: 05/10/17 05/10/17 06:59 18:59 Intake Total 720 Balance 720 - Medications Medications: Current Medications Acetaminophen (Tylenol 325mg Tab) 650 mg PO Q4H PRN PRN Reason: Pain, Mild (1-3) Aspirin (Aspirin Chewable) 81 mg PO DAILY [facility] Last Admin: 05/10/17 09:31 Dose: 81 mg Clopidogrel Bisulfate (Plavix) 75 mg PO DAILY [facility] Last Admin: 05/10/17 09:31 Dose: 75 mg Levothyroxine Sodium (Synthroid) 125 mcg PO 0600 [facility] Last Admin: 05/10/17 07:30 Dose: 125 mcg Lisinopril (Zestril) 2.5 mg PO DAILY [facility] Last Admin: 05/10/17 09:31 Dose: 2.5 mg Metoprolol Succinate (Toprol Xl) 50 mg PO BRK [facility] Last Admin: 05/10/17 08:10 Dose: 50 mg - Labs Labs: 05/10/17 06:30 05/10/17 06:30 - Constitutional Appears: No Acute Distress - Head Exam Head Exam: NORMOCEPHALIC - Eye Exam Eye Exam: Normal appearance. absent: Scleral icterus - ENT Exam ENT Exam: Mucous Membranes Moist - Neck Exam Neck Exam: Normal Inspection - Respiratory Exam Respiratory Exam: NORMAL BREATHING PATTERN. absent: Respiratory Distress - Cardiovascular Exam Cardiovascular Exam: +S1, +S2 - GI/Abdominal Exam GI & Abdominal Exam: Soft, Normal Bowel Sounds. absent: Guarding, Tenderness, Rebound - Extremities Exam Extremities Exam: Normal Capillary Refill. absent: Calf Tenderness, Pedal Edema - Neurological Exam Neurological Exam: Alert, Awake, Oriented x3 - Skin Skin Exam: Dry, Warm Assessment and Plan - Assessment and Plan (Free Text) Assessment: 1. Abnormal LFTs. A Scan Was Reviewed and Showed Multiple Gallstones and CBD Was Prominent 9.4 Mm No Obvious Stone noticed in CBD. No tenderness in right upper quadrant or epigastric area now. The etiology for elevated LFT unclear the differential diagnoses include drug-induced secondary to amiodarone, hepatic congestion and also CBD stone 2. History of atrial fibrillation on amiodarone which has been discontinued and now with follow-up LFTs 3. Anemia dropping blood count patient was on IV fluid this could be secondary to hydration however patient is also on aspirin and Plavix rule out any GI source of blood loss would empirically continue the patient on PPI. Patient was on anticoagulation which was discontinued in view of the GI bleeding and also history of fall and head trauma 4. History of Crohn's disease status post colon resection patient was on surveillance for a long time. He was told by her forging press operator no need for further evaluation and the colitis has been in remission 5. Rule out right kidney renal lesion noticed in the recent CT done with contrast. History of renal cysts urology clinic follow-up 6. Coronary artery disease status post non-ST segment [place] status post PCI and stent placement to LAD on aspirin and Plavix 7. Left upper quadrant abdominal discomfort improved 8. Episodes of loose bowel movements the differential diagnosis should include gastritis, C. difficile, intermittent bowel disease 9. Hepatic lesions history of hemangioma 10. Other differential diagnoses included history of thyroid cancer, diabetes mellitus, dyslipidemia PLAN 1. continue soft cardiac diabetic diet 2. FU MRCP/MRI report still pending 3. follow up on the hemoglobin and hematocrit 4. Follow up LFT 5. OFF Amiodarone Seen and discussed with Dr. Massey. MRCP/MRI: report reviewed: multiple gallstones, no signs of acute cholecystitis/ AA2cm simple cysts pancreas/large hepatic hemangioma/fatty liver <Susan Massey V - Last Filed: 05/10/17 23:01> Objective - Vital Signs/Intake and Output Vital Signs (last 24 hours): Temp Pulse Resp BP Pulse Ox 98.9 F 54 L 18 112/54 L 96 05/10/17 16:00 05/10/17 16:00 05/10/17 16:00 05/10/17 16:00 05/10/17 16:00 Intake and Output: 05/10/17 05/11/17 18:59 06:59 Intake Total 360 Balance 360 - Labs Labs: 05/10/17 06:30 05/10/17 06:30 Attending/Attestation - Attestation I have personally seen and examined this patient.: Yes I have fully participated in the care of the patient.: Yes I have reviewed all pertinent clinical information, including history, physical exam and plan: Yes Notes (Text): this patient was seen and evaluated here earlier. Patient's daughter was also at bedside The MRI scan was reviewed and also discussed with the radiologist The CBD appeared normal Hepatic lesions suggestive of hemangioma present the same size The concern is right renal lesion. Please see the addendum report. Plan 1. Follow-up on the hemoglobin and hematocrit, patient is on aspirin and Plavix. History of a lady stent placement would recommend t Thank you heel top lift splitter to participate in the care of the patienthe patient to be on H2 blockers as Zantac or Pepcid presently she is not taking any PPI at home or H2 chantal recommend to take by mouth iron 2. Abnormal LFT need close follow-up. Could be secondary to amiodarone. MRI showed a normal CBD 3. History of intermittent episodes of constipation. Patient has left colonic anastomosis her left upper quadrant and left-sided abdominal discomfort improved after bowel movements. Patient was advised to take stool softeners on when necessary basis Patient daughter was given copies of the recent MRI for follow-up detailed explanation and recommendations were given to patient's daughter who fully understood. Follow-up in our office and advised to follow up with PCP
--- NOTE | 2017-05-10 10:50 | MRI ---
PROCEDURE: MRI Abdomen with and without contrast HISTORY: Elevated liver function tests COMPARISON: None available. TECHNIQUE: Multisequence, multiplanar MR images of the abdomen with and without gadolinium contrast enhancement. 15 cc of Omniscan FINDINGS: LIVER: There are 2 adjacent large liver lesions in the right lobe the largest measuring 4 x 8 cm and the 2nd measuring 3 x 5.8 cm. These lesion show a pattern of peripheral nodular enhancement consistent with hemangiomas. The enhancement is best seen on image 507 series 15. There is mild fatty infiltration of the liver GALLBLADDER: Multiple large gallstones are seen. No evidence of acute inflammation SPLEEN: Unremarkable. PANCREAS: There is AA 2 cm simple cyst in the body of the pancreas. No enhancement ADRENALS: Unremarkable. KIDNEYS: Unremarkable. AORTA: No aneurysm. ASCITES: None. PERITONEUM: Unremarkable. LYMPH NODES: Unremarkable. OTHER FINDINGS: The report concurs with the preliminary [facility] report IMPRESSION: Large hepatic hemangiomas. Fatty infiltration of the liver. Multiple gallstones
--- NOTE | 2017-05-10 12:14 | PN ---
DATE: SUBJECTIVE: The patient has no complaints of chest pain. No shortness of breath. No headache. PHYSICAL EXAMINATION VITAL SIGNS: Temperature is 98.9, pulse is 59, blood pressure 126/62, respirations 20, and O2 saturation 93%. GENERAL: The patient is lying in bed, flat, comfortable. HEENT: No oral lesion. Anicteric sclerae. Moist mucosa. NECK: No JVD, adenopathy, or thyromegaly. CARDIOVASCULAR: S1 and S2, regular. No murmurs, rubs, or gallops. LUNGS: Clear to auscultation bilaterally. No wheeze, rales, or rhonchi. ABDOMEN: Bowel sounds are positive, soft, nontender and nondistended. EXTREMITIES: no cyanosis, clubbing or edema. LABORATORY DATA: Labs have been reviewed and MRCP is pending. ASSESSMENT: 1. Left-sided abdominal pain. 2. Dilated common bile duct at 9.6 mm. 3. Right kidney mass. 4. 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 5. Cholelithiasis. 6. Elevated alkaline phosphatase. 7. History of atrial fibrillation. 8. Crohn's disease. 9. Coronary artery disease. 10. Transaminitis with alkaline phosphatase. PLAN: The patient had MRCP done yesterday. The results are pending. I did speak to Dr. Massey regarding the case. We are still waiting for Urology evaluation. The patient is on MiraLAX for constipation. She is on aspirin and Plavix for her coronary artery disease. She is on Synthroid for her hypothyroidism. She is on lisinopril for her hypertension. We will wait for the input from the specialist. Elías Huff MD
[2017-05-10 18:03] VITALS: BP 112/54; PULSE 54; TEMP 98.9; O2SAT 96
== END 2017-05-10 18:52 | disposition home or self-care (01) | DRG 446 ==
LOC: ED 10:54 → ERH 14:41 → 5RNO 15:55 → OBSVTOIN 05-09 13:26
PROVIDERS: ADMIT Internal Medicine Nephrology; ATTEND Internal Medicine Nephrology
DX: K80.20 Calculus of gallbladder without cholecystitis without obstruction (principal); I48.0 Paroxysmal atrial fibrillation; K76.0 Fatty (change of) liver, not elsewhere classified; E11.9 Type 2 diabetes mellitus without complications; I10 Essential (primary) hypertension; D64.9 Anemia, unspecified; N28.89 Other specified disorders of kidney and ureter; I25.10 Atherosclerotic heart disease of native coronary artery without angina pectoris; K83.8 Other specified diseases of biliary tract; K86.9 Disease of pancreas, unspecified; E78.5 Hyperlipidemia, unspecified; D18.03 Hemangioma of intra-abdominal structures; N28.1 Cyst of kidney, acquired; R26.9 Unspecified abnormalities of gait and mobility; N20.0 Calculus of kidney; Z85.850 Personal history of malignant neoplasm of thyroid; Z95.5 Presence of coronary angioplasty implant and graft; I25.2 Old myocardial infarction; Z90.49 Acquired absence of other specified parts of digestive tract; Z87.19 Personal history of other diseases of the digestive system

== ENCOUNTER 2018-10-09 07:07 | Day surgery (SDC) | payer MEDICARE ==
[2018-10-09] MEDS ORDERED: Lidocaine 2% Jelly (30 ml) ONE (07:56)
[2018-10-09 09:01] VITALS: O2SAT 99
[2018-10-09 09:29] VITALS: RESP 16; TEMP 98.2
[2018-10-09 10:02] VITALS: BP 137/72; PULSE 76
== END 2018-10-09 10:02 | disposition home or self-care (01) ==
LOC: ENDO 07:07 → OPSURG 07:07
PROVIDERS: ATTEND Internal Medicine Gastroenterology
DX: K50.90 Crohn's disease, unspecified, without complications (principal); K64.8 Other hemorrhoids; K64.4 Residual hemorrhoidal skin tags; K63.89 Other specified diseases of intestine; E73.9 Lactose intolerance, unspecified; Z88.0 Allergy status to penicillin

== ENCOUNTER 2018-11-21 11:27 | Outpatient (CLI) | payer MEDICARE | END 2018-11-21 11:28 | disposition home or self-care (01) | LOC: LAB 11:27 ==